=== PATIENT | male | born 1995 | race Caucasian/White ===

== ENCOUNTER 2019-02-05 10:45 | Emergency (ER) | payer MEDICAID, SELFPAY ==
[2019-02-05 10:48] VITALS: BP 134/81; PULSE 100; RESP 16; TEMP 36.1; O2SAT 99; BMI 27.1
--- NOTE | 2019-02-05 11:09 | ED.RN ---
WOUND HEALING WELL. NO SEPSIS WORKUP
--- NOTE | 2019-02-05 11:11 | ED.VIS.GEN ---
History of Present Illness Chief Complaint: Cellulitis Detail of Chief Complaint: Left leg wound Informant: Patient Onset: Weeks - 3 Current Severity: Mild Maximum Severity: Moderate Narrative: Patient presents with wound to the left lateral calf. He was just released from the [facility] yesterday. He states he had a wound there for 3 or 4 weeks. They were packing the wound daily for the past 2 weeks. Patient was discharged with supplies to change the dressing daily. He states a culture came back positive for MRSA that was sensitive to Cipro. He is currently on Cipro for another 5 days. He does not have a primary care physician to follow-up with and wanted to have the wound checked. - Past Medical History (1) MRSA (methicillin resistant Staphylococcus aureus) Status: Acute Past Medical History - Allergies and Home Meds Allergies/Adverse Reactions: Allergies sulfamethoxazole [From Bactrim] Allergy (Verified 02/05/19 10:47) Other FLUSHED, COLD CHILLS, DIZZY trimethoprim [From Bactrim] Allergy (Verified 02/05/19 10:47) Other FLUSHED, COLD CHILLS, DIZZY Primary Care Physician: Care Physician,No Primary [Primary Care Provider] - Prior records reviewed: Yes Past Medical History: - - Reviewed Lives: With Family Smoking Status: Former smoker Review of Systems General: Denies: Chills, Fever Eyes: Denies: Visual changes - left, Visual changes - right ENT: Denies: Bilateral ear pain Cardiovascular: Denies: Chest pain Respiratory: Denies: Dyspnea Gastrointestinal: Denies: Abdominal pain, Nausea, Vomiting Musculoskeletal: Denies: Myalgias, Arthralgias Skin: Reports: Wounds Neurological: Denies: Headache Hematologic: Denies: Easy bruising, Easy bleeding Allergy: Denies: Uticaria Physical Exam Vital Signs/Narrative: Vital Signs Temp Pulse Resp BP Pulse Ox 02/05/19 10:48 97 F L 100 16 134/81 H 99 Inital Vital Signs reviewed: Yes General: Well nourished, Well developed Head: Normocephalic, Atraumatic ENT: Moist mucous membranes Cardiovascular: Regular rate, Regular rhythm Respiratory: No distress, CTA bilaterally Abdomen: Soft, Nontender Extremities: - - There is a 1 cm diameter wound to the left lateral calf. Packing is removed. Wound is approximately 3 mm in depth. Wound edges and wound bed are clean with no drainage or sign of acute infection. Neurological: Alert, Oriented x3 Psychological: Normal affect Diagnostic/Tx/Re-eval - Medical Decision Making Dressing was replaced. Patient has 5 additional days of antibiotics. He will be referred to the wound center for follow-up. ED Disposition - Plan for ED Patient: Disposition: Home or Assisted Living Diagnosis: Visit for wound check Instructions: MRSA SKIN INFECTION, Suspected or Confirmed Additional Instructions: Call the Wound Center for follow-up: [phone]
== END 2019-02-05 11:27 | disposition home or self-care (01) ==
LOC: ED 11:23
PROVIDERS: Emergency Provider Emergency Medicine
DX: Z48.00 Encounter for change or removal of nonsurgical wound dressing (principal); B95.62 Methicillin resistant Staphylococcus aureus infection as the cause of diseases classified elsewhere; Z87.891 Personal history of nicotine dependence; Z79.2 Long term (current) use of antibiotics
CPT/HCPCS: 99282

== ENCOUNTER 2019-09-08 02:56 | Emergency (ER) | payer MEDICAID, SELFPAY ==
[2019-09-08 02:56] VITALS: BP 173/100; PULSE 100; RESP 18; TEMP 35.8; O2SAT 100; BMI 31.3
--- NOTE | 2019-09-08 03:05 | ED.VIS.GEN ---
History of Present Illness Chief Complaint: Eye Problem Informant: Patient Onset: Yesterday Context: Gradual Onset Current Severity: Mild Maximum Severity: Moderate Narrative: Patient presents with right eye irritation. He states that he was grinding sheet-metal with a wheel yesterday afternoon. He felt something in his eye and thought he got everything washed out, but the irritation seems to be slightly worsening. He does not wear glasses or contacts. He denies any vision change. Past Medical History - Allergies and Home Meds Allergies/Adverse Reactions: Allergies sulfamethoxazole [From Bactrim] Allergy (Verified 02/05/19 10:47) Other FLUSHED, COLD CHILLS, DIZZY trimethoprim [From Bactrim] Allergy (Verified 02/05/19 10:47) Other FLUSHED, COLD CHILLS, DIZZY Primary Care Physician: Care Physician,No Primary [Primary Care Provider] - Prior records reviewed: Yes Smoking Status: Current every day smoker Review of Systems General: Denies: Chills, Fever Eyes: Denies: Visual changes - bilaterally ENT: Denies: Bilateral ear pain Cardiovascular: Denies: Chest pain Respiratory: Denies: Dyspnea Gastrointestinal: Denies: Abdominal pain Skin: Denies: Rash Neurological: Denies: Headache Physical Exam Vital Signs/Narrative: Vital Signs Temp Pulse Resp BP Pulse Ox 09/08/19 02:56 96.4 F L 100 18 173/100 H 100 Inital Vital Signs reviewed: Yes General: Well nourished, Well developed Head: Normocephalic Eyes: Perrl, EOMI, - - Right eye injected. Mild eyelid erythema and edema. No sign of cellulitis. ENT: Moist mucous membranes Cardiovascular: Regular rate, Regular rhythm Respiratory: No distress, CTA bilaterally Abdomen: Soft, Nontender Neurological: Alert, Oriented x3 Psychological: Normal affect Diagnostic/Tx/Re-eval - Medical Decision Making Tetracaine was applied to the right eye. Patient did have some improvement in his pain. On slit-lamp examination he does have a metallic foreign body just inferior to the pupil. I attempted to remove this with a cotton-tipped swab but it is well embedded. Patient tells me it is been there at least 36 hours. In light of the fact that is been present so long I recommended follow-up with ophthalmology for removal. Patient be covered with gentamicin ophthalmic drops. I will call the office in the morning to notify them patient will be calling. Patient is to call tomorrow morning at 8 AM. ED Disposition - Plan for ED Patient: Disposition: Home or Assisted Living Diagnosis: Foreign body of right eye Referrals: Henri Tvaeras MD [STAFF PHYSICIAN] - 1 Day Additional Instructions: Gentamicin eye drops - 1 drop to right eye every [address] Taveras' office in the morning to be seen.
[2019-09-08] MEDS: Fluorescein 1 MG STRIP 1 STRIP RIGHT EYE (03:33)
[2019-09-08] MEDS: Tetracaine 0.5% Ophthalmic Bottle 1 DRP RIGHT EYE (03:33)
[2019-09-08] MEDS: Gentamicin Sulfate 1 OPTH.BTL 2 DRP RIGHT EYE (03:33)
== END 2019-09-08 03:36 | disposition home or self-care (01) ==
PROVIDERS: Emergency Provider Emergency Medicine
DX: T15.91XA Foreign body on external eye, part unspecified, right eye, initial encounter (principal); W45.8XXA Other foreign body or object entering through skin, initial encounter; Z72.0 Tobacco use
CPT/HCPCS: 99282

== ENCOUNTER 2021-01-23 04:20 | Emergency (ER) | payer MEDICAID, SELFPAY ==
[2021-01-23 04:21] VITALS: BP 165/117; PULSE 129; RESP 18; TEMP 35.9; O2SAT 97; BMI 36.3
[2021-01-23 04:23] VITALS: BP 165/117; PULSE 129; RESP 18; TEMP 35.9; O2SAT 97
[2021-01-23] MEDS: Bupivacaine 0.5% PF 10 ML VIAL 5 ML INFILT (04:51)
--- NOTE | 2021-01-23 04:54 | EDS_ITS ---
HPI History of Present Illness Chief Complaint: Dental Narrative Narrative: Patient presenting for evaluation secondary to dental pain. Patient states that he has had issues with his left mandibular wisdom tooth over the course of multiple months, but has been getting worse over the course the last couple of days. He reports that he has been self treating with a large amount of Naprosyn every day, as well as with alcohol. He states that he has been drinking more heavily and more heavily but it has not been alleviating his pain. He denies any fevers. Denies any difficulty swallowing. No difficulty with tolerating his secretions or opening closing his mouth. States that he has had dental extractions in the past but they were prohibitively expensive. Patient denies any history of immunosuppression. He is not allergic to anything other than Bactrim. Review of systems otherwise negative. PFSH PFSH Home Medications hydrocodone-acetaminophen 1 tab PO Q8H PRN 3 Days #9 tab 01/23/21 [Rx Last Taken Unknown] penicillin V potassium 500 mg PO 4X/DAY #40 tab 01/23/21 [Rx Last Taken Unknown] Allergy/AdvReac Type Severity Reaction Status Date / Time sulfamethoxazole Allergy Other Verified 02/05/19 10:47 [From Bactrim] trimethoprim [From Bactrim] Allergy Other Verified 02/05/19 10:47 Social History Smoking Status: Current every day smoker tobacco type: cigarettes ROS ROS ED Constitutional Constitutional ED: Denies fever(s) ENT ENT ED: Reports other Details: Dental pain Cardiovascular Cardiovascular: Denies chest pain Respiratory/Chest Respiratory/Chest: Denies dyspnea Gastrointestinal Gastrointestinal: Denies nausea or vomiting Musculoskeletal Musculoskeletal: Denies myalgias Integumentary Denies abscess or rash Neurologic Neurologic: Denies weakness Psychiatric Psychiatric: Denies anxiety or depression Endocrine Endocrinology: Denies polydipsia or polyuria Hematologic/Lymphatic Hematologic/Lymphatic: Denies easy bruising EXAM Physical Exam Const Vital Signs: 01/23/21 04:21 01/23/21 04:23 Temperature 96.6 F L 96.6 F L Temperature Source Temporal Temporal Pulse Rate 129 H 129 H Respiratory Rate 18 18 Blood Pressure 165/117 H 165/117 H Blood Pressure Mean 133 133 Pulse Ox 97 97 Oxygen Delivery Method Room Air Room Air Positive well nourished and well developed Constitutional Narrative: Patient is tearful and obviously in significant pain General Appearance ED: well developed HEENT HEENT Narrative: Oral exam shows actually reasonably good dentition. There is a very bad dental caries noted of the patient's third left mandibular molar without any evidence of associated abscess. No trismus. Soft sublingual space. Normal Stensen's duct. Eyes Eyes Narrative: Sclera are injected bilaterally Neck supple Resp normal respiratory effort and clear to auscultation bilaterally Cardio regular rhythm and no murmurs Cardio Narrative: 2+ radial pulses bilaterally symmetric Rate: tachycardic Extremity normal to inspection Neuro oriented x3 Sensorium / Orientation: alert Psych Psych Narrative: Patient is tearful, but otherwise not in psychiatric distress Skin no rashes or lesions noted MDM MDM MDM Narrative Medical decision making narrative: Patient presented with severe dental pain. He was noted to be tachycardic upon arrival, likely secondary to both his alcohol intoxication as well as his significant pain. He has an obvious source of his pain, I performed a inferior alveolar block as noted in the procedure note. Patient had significant improvement of his pain. Reviewed the patient's prescription reporting record, he does not seem to have a current record of prescription abuse at this time. He will be given #9 [place] as well as penicillin. He would be given the follow-up list for dentists. Patient was discharged in significantly improved condition. Procedures Other Procedures Procedure(s): Patient was verbally consented for an inferior alveolar block. He was placed in a semiupright position. Direct lighting was utilized. A 25-gauge needle and a 5 cc syringe were utilized, landmarks were identified. 0.5% bupivacaine was injected at the inferior alveolar nerve. Patient tolerated this well and had significant improvement of his pain. Discharge Plan Triage Chief Complaint: Dental ED Provider: Reggie Brandon Dx/Rx/DC Orders Clinical Impression: Dental caries Instructions: ED Dental Cavity Prescriptions: New penicillin V potassium 500 mg tablet 500 mg PO 4X/DAY Qty: 40 RF: 0 hydrocodone-acetaminophen 5-325 mg tablet 1 tab PO Q8H PRN (Reason: pain) 3 Days Qty: 9 RF: 0 Primary Care Provider: Care Physician,No Primary Referrals: Care Physician,No Primary [Primary Care Provider] - Activity Restrictions/Additional Instructions: Follow-up with a dentist as soon as possible Disposition Disposition: Home, Self Care
== END 2021-01-23 05:04 | disposition home or self-care (01) ==
PROVIDERS: Emergency Provider Emergency Medicine
DX: K02.9 Dental caries, unspecified (principal); F17.210 Nicotine dependence, cigarettes, uncomplicated
CPT/HCPCS: 41800; 64999; 99282

== ENCOUNTER 2021-01-24 13:49 | Emergency (ER) | payer MEDICAID, SELFPAY ==
[2021-01-23 04:21] VITALS: BMI 36.3
[2021-01-24 13:50] VITALS: BP 166/89; PULSE 103; RESP 16; TEMP 36.3; O2SAT 99; BMI 35.3
--- NOTE | 2021-01-24 14:18 | ED.VIS.DENTA ---
HPI History of Present Illness Chief Complaint: Dental Detail of Chief Complaint: Dental pain for 3 days Informant: patient Onset/Context/Timing Current Severity: Severe Narrative Narrative: Patient presents with severe dental pain that started 3 days ago. Patient states that he was seen in the emergency department 2 days ago and prescribed penicillin and Vicodin for pain. Patient states he was also given a dental block which gave him a lot of relief initially but that the Vicodin is not helping very much. Patient actually has an appointment to see a dentist tomorrow morning but was hoping to get another dental block because of the amount of pain that he is having. Patient denies any fevers or chills or sweats. Prior similar symptoms: No PFSH PFSH Home Medications hydrocodone-acetaminophen 1 tab PO Q8H PRN 3 Days #9 tab 01/23/21 [Rx Last Taken Unknown] penicillin V potassium 500 mg PO 4X/DAY #40 tab 01/23/21 [Rx Last Taken Unknown] Allergy/AdvReac Type Severity Reaction Status Date / Time sulfamethoxazole Allergy Other Verified 01/24/21 13:51 [From Bactrim] trimethoprim [From Bactrim] Allergy Other Verified 01/24/21 13:51 Social History Smoking Status: Current every day smoker tobacco type: cigarettes ROS ROS ED Constitutional Constitutional ED: Reports systems reviewed and no addt'l complaints, except as documented; Denies body ache(s), change in weight or chills Eyes Eyes: Denies acute decrease in peripheral vision, change in vision, double vision or loss of vision ENT ENT ED: Reports none and other Details: Dental pain ; Denies ear pain, lip swelling, loss taste/smell, neck pain, otalgia or sore throat Cardiovascular Cardiovascular: Reports none; Denies abdominal pain, chest pain with activity, leg edema, lightheadedness, palpitations, rapid heart rate or syncope Respiratory/Chest Respiratory/Chest: Reports none; Denies change in mental status, dry cough, dyspnea, hemoptysis, shortness of breath at rest or shortness of breath with exertion Gastrointestinal Gastrointestinal: Reports none; Denies abdominal pain, change in stool character, diarrhea, hematemesis, hematochezia, melena, rectal bleeding or vomiting Genitourinary Genitourinary ED: Reports none; Denies abdominal discomfort, anuria, dysuria, genital pain or polyuria Musculoskeletal Musculoskeletal: Reports none; Denies arthralgias, back pain, difficulty walking, extremity pain, muscle weakness or myalgias Integumentary Reports none; Denies abscess or rash Neurologic Neurologic: Reports none; Denies abnormal gait, confusion, focal weakness, frequent falls, headache(s), loss of vision, numbness, paresthesias, radicular pain, vertigo or weakness Psychiatric Psychiatric: Reports systems reviewed and no addt'l complaints, except as documented and none; Denies behavioral changes, confusion, difficulty concentrating, hallucinations, suicidal ideation, tactile hallucinations or visual hallucinations Endocrine Endocrinology: Denies none, cold intolerance, excessive sweating, fatigue or heat intolerance Hematologic/Lymphatic Hematologic/Lymphatic: Reports none; Denies anemia, easy bleeding or easy bruising Allergic/Immunologic Allergic/Immunologic ED: Denies as per HPI, none, lip swelling, mouth swelling, throat swelling, tongue swelling or hives EXAM Physical Exam Const Vital Signs: 01/24/21 13:50 Temperature 97.3 F L Temperature Source Temporal Pulse Rate 103 H Respiratory Rate 16 Blood Pressure 166/89 H Blood Pressure Mean 114 Pulse Ox 99 Oxygen Delivery Method Room Air Positive well nourished and well developed General Appearance ED: well developed and NAD HEENT Reports TM's clear and moist mucous membranes HEENT Narrative: Dentition-patient has a broken and carried left lower molar #17 is tender to palpation. No significant gingival erythema noted. There is no abscess. There is no facial cellulitis. No trismus on exam. No adenopathy noted. Floor the mouth is soft and patient is able to touch his tongue to the roof of his mouth without difficulty. normocephalic and atraumatic; Negative for trauma or tenderness Tympanic Membrane ED: Yes TM's clear Eyes PERRL and EOMs intact bilaterally General Eye ED: Negative for pale conjunctiva or scleral icterus Neck no lymphadenopathy, supple and no JVD General: Negative for tenderness Chest Wall inspection of chest normal and palpation of chest normal Chest: Negative for tenderness Resp normal respiratory effort and clear to auscultation bilaterally Effort and Inspection: Negative for respiratory distress or pain with movement Auscultation: Negative for rhonchi, wheezes or diminished lung sounds Cardio regular rate, regular rhythm, S1 normal heart sound, S2 normal heart sound and no murmurs Peripheral Pulses: pulses 2+ throughout GI normal to inspection, nondistended, normoactive bowel sounds, soft to palpation, non-tender, non-distended and no masses Back/Spine no CVA tenderness and no thoracic nor lumbar tenderness Extremity normal to inspection General Extremety ED: Negative for edema General Extremity: Negative for edema Neuro oriented x3, CN's II-XII intact bilaterally, no sensory deficits noted and gait normal Sensorium / Orientation: awake, alert, oriented to person, oriented to place and oriented to time Motor Exam: strength 5/5 throughout and strength abnormal Psych mental status grossly normal Skin no rashes or lesions noted and no wounds MDM MDM MDM Narrative Medical decision making narrative: Patient had a dental block performed with 1.5 cc of bupivacaine. Patient advised to follow-up with his dentist tomorrow. He has 3 Vicodin left to get him through until tomorrow. Discharge Plan Triage Chief Complaint: Dental ED Provider: Yanna Galaviz Dx/Rx/DC Orders Clinical Impression: Pain, dental Instructions: ED Dental Pain Prescriptions: No Action penicillin V potassium 500 mg tablet 500 mg PO 4X/DAY Qty: 40 RF: 0 hydrocodone-acetaminophen 5-325 mg tablet 1 tab PO Q8H PRN (Reason: pain) 3 Days Qty: 9 RF: 0 Primary Care Provider: Care Physician,No Primary Referrals: Care Physician,No Primary [Primary Care Provider] - Activity Restrictions/Additional Instructions: See your dentist tomorrow. Disposition Disposition: Home, Self Care
== END 2021-01-24 14:30 | disposition home or self-care (01) ==
PROVIDERS: Emergency Provider Emergency Medicine
DX: K08.89 Other specified disorders of teeth and supporting structures (principal); F17.210 Nicotine dependence, cigarettes, uncomplicated
CPT/HCPCS: 64999; 99282

== ENCOUNTER 2021-04-05 14:25 | Observation (INO) | payer MEDICAID, SELFPAY ==
[2021-04-05] VITALS (9 sets, daily range): BP systolic 129–174; BP diastolic 77–103; PULSE 81–105; RESP 17–18; TEMP 36.2–37; O2SAT 96–99; BMI 37.5; BMI 38.7
--- NOTE | 2021-04-05 14:45 | CT_ITS ---
STUDY: CT ABDOMEN AND PELVIS WITHOUT CONTRAST REASON FOR EXAM: Male, 25 years old. Right lower quadrant pain. RADIATION DOSAGE (If Supplied By Facility): CTDIvol = ( 18.77 ) mGy, DLP = ( 1022.12 ) mGycm TECHNIQUE: Transaxial images were obtained from the dome of the diaphragm to the symphysis pubis without oral contrast, and without intravenous contrast. Sagittal and coronal images were reconstructed. Individualized dose optimization techniques were used for this CT. COMPARISON: None. FINDINGS: The visualized lung bases are unremarkable. The visualized portions of the heart are within normal limits. There is decreased attenuation of the liver consistent with steatosis. Normal gallbladder and extrahepatic biliary system. Normal spleen. Normal pancreas. Normal bilateral adrenal glands. Normal right kidney. Normal left kidney. Normal visualized stomach. Normal small intestine. Normal colon. There is a tiny calcified appendicolith at the tip of the appendix. No inflammatory changes seen. Normal abdominal aorta. Normal inferior vena cava. There is borderline retroperitoneal lymphadenopathy with enlarged nodes no greater than 10mm in the short axis diameter. Normal urinary bladder. Normal abdominal wall. Straightening of the normal lumbar lordosis. CT/Abdomen/Pelvis without Cont IMPRESSION: Fatty infiltration of the liver. Tiny calcified appendicolith at the tip of the appendix. No periappendiceal inflammatory changes seen. Electronically Signed: Rafa Valenzuela MD at 15:26 EDT , Service support ,
[2021-04-05] MEDS: 0.9% Normal Saline 1,000 ML 1000 ML IV (15:04)
--- NOTE | 2021-04-05 15:08 | EX.ED.DYSGE1 ---
HPI History of Present Illness Chief Complaint: Abd Pain Narrative Narrative: Patient presents with right lower quadrant abdominal pain for the past 6 days or so. No fever or chills but pain is especially worse when he moves or hits a bump. He has no diarrhea or constipation, he has no nausea although his pain is somewhat worse with eating and he has had some anorexia. No urinary symptoms. No flank pain. PFSH PFSH Home Medications NK 04/05/21 [History Last Taken Unknown] Allergy/AdvReac Type Severity Reaction Status Date / Time sulfamethoxazole Allergy Other Verified 04/05/21 14:25 [From Bactrim] trimethoprim [From Bactrim] Allergy Other Verified 04/05/21 14:25 Social History Smoking Status: Current every day smoker tobacco type: cigarettes ROS ROS ED ROS Narrative Past medical history: Reviewed, unremarkable Medications: Reviewed Social history: Noncontributory Review of systems: All systems negative except as indicated General: No fever Eyes: No visual changes ENT: No upper airway congestion, normal voice Neck: No neck pain Cardiovascular: No chest pain Respiratory: No shortness of breath or cough Gastrointestinal: Abdominal pain as in HPI, no nausea vomiting. No diarrhea. No flank pain Genitourinary: No dysuria Musculoskeletal: Denies myalgias no difficulty with ambulation Skin: No rash Neurological: No memory loss, confusion or any focal weakness Psych: No recent behavioral changes Hematologic: No easy bleeding or easy bruising EXAM Physical Exam Narrative Exam Narrative: Physical exam General: Patient appears slightly uncomfortable. Head: Normocephalic, Atraumatic Eyes: Conjunctiva not pale ENT: Moist mucous membranes Neck: Supple, Nontender, No lymphadenopathy Cardiovascular: Regular rate, Regular rhythm Respiratory: No distress, CTA bilaterally Abdomen: Soft, there is right lower quadrant abdominal tenderness. There is some guarding in that region the tenderness is around McBurney's. There is rebound tenderness. No testicular pain. No CVA tenderness. Back: Nontender, Normal Inspection. Negative for: CVA tenderness Extremities: Nontender, No edema Skin: Normal color, No rash Neurological: Alert, Normal Strength, Normal Sensation Psychological: Normal affect Const Vital Signs: 04/05/21 14:26 Temperature 97.4 F L Temperature Source Temporal Pulse Rate 105 H Respiratory Rate 17 Blood Pressure 174/103 H Blood Pressure Mean 126 Pulse Ox 96 Oxygen Delivery Method Room Air MDM MDM MDM Narrative Medical decision making narrative: Patient has an appendicolith on CT however his exam is quite significant for appendicitis I called surgery who agrees and patient will be taken to the operating room. Zosyn was started in the ED. Lab Data Labs: Laboratory Results - last 24 hr 04/05/21 04/05/21 04/05/21 14:55 15:04 15:04 WBC 10.3 RBC 5.20 Hgb 16.3 Hct 48.0 MCV 92.3 MCH 31.3 MCHC 34.0 RDW Std Deviation 42.6 RDW Coeff of Mega 12.4 Plt Count 300 MPV 9.5 Immature Gran % (Auto) 0.900 Neut % (Auto) 65.0 Lymph % (Auto) 21.4 Posey % (Auto) 8.7 Eos % (Auto) 3.2 Baso % (Auto) 0.8 Absolute Neuts (auto) 6.7 Absolute Lymphs (auto) 2.20 Nucleated RBC % 0 Sodium 139 Potassium 4.1 Chloride 106 Carbon Dioxide 26.0 Anion Gap 7 BUN 14 Creatinine 1.00 Estim Creat Clear Calc 110.96 Est GFR (MDRD) Af Amer 115 Est GFR (MDRD) Non-Af 95 BUN/Creatinine Ratio 14.0 Glucose 107 H Calcium 9.2 Total Bilirubin 0.30 AST 63 H ALT 107 H Alkaline Phosphatase 124 H Total Protein 7.2 Albumin 3.5 Globulin 3.7 Albumin/Globulin Ratio 0.9 Urine Color Yellow Urine Clarity Clear Urine pH 8.0 Ur Specific [place] 1.010 Urine Protein Negative Urine Glucose (UA) Normal Urine Ketones Negative Urine Occult Blood Negative Urine Nitrite Negative Urine Bilirubin Negative Urine Urobilinogen Normal Ur Leukocyte Esterase Negative Urine RBC 0 SEEN Urine WBC 0 SEEN Ur Squamous Epith Cells 0 SEEN Urine Bacteria 0 SEEN Urine Mucus 0 SEEN Radiography Diagnostic Testing: Radiology Impression Abdomen/Pelvis CT 04/05/21 14:45 IMPRESSION: Fatty infiltration of the liver. Tiny calcified appendicolith at the tip of the appendix. No periappendiceal inflammatory changes seen. Electronically Signed: Rafa Valenzuela MD at 15:26 EDT , Service support , Discharge Plan Triage Chief Complaint: Abd Pain ED Provider: Nick Devlin Dx/Rx/DC Orders Clinical Impression: Acute appendicitis Prescriptions: No Action NK RF: 0 Primary Care Provider: Care Physician,No Primary Referrals: Care Physician,No Primary [Primary Care Provider] - Disposition Disposition: Acute Care Hospital [facility]
[2021-04-05 15:12] LABS: Bacteria 0 SEEN /hpf (None Seen); Mucous, Urine 0 SEEN /hpf (<or=2+); Red Blood Cells-Urine 0 SEEN /hpf (0-5); Squamous Epithelial Cells - UA 0 SEEN /hpf (0-5); White Blood Cells 0 SEEN /hpf (0-5)
[2021-04-05 15:13] LABS: Color, Urine Yellow (Yellow); Glucose, Dipstick Normal (Normal); Ketone-Dipstick Negative (Negative); Leukocyte Esterase-Dipstick Negative /ul (Negative); Nitrite-Dipstick Negative (Negative); Occult Blood-Urine Negative /ul (Negative); Protein-Dipstick Negative (Negative); Urine Bilirubin Dipstick Negative (Negative); Urine Clarity Clear (Clear); Urine Urobilinogen Normal (Normal)
[2021-04-05 15:14] LABS: Absolute Neutrophil Count 6.7 X10^3/uL (2.0-7.7); Basophil# 0.08 X10^3/uL; Basophil% 0.8 % (0-1); Eosinophil# 0.33 X10^3/uL; Eosinophils% 3.2 % (0-5); Hemoglobin 16.3 g/dL (13.0-16.5); Lymphocyte % 21.4 % (19-41); Mean Corpuscular Hgb 31.3 pg (27.0-32.0); Mean Corpuscular Volume 92.3 fL (80-94); Mean Platelet Vol. 9.5 fl (6.2-12.0); Monocyte% 8.7 % (0-10); NRBC Flagged by Analyzer 0 % (0-5); Neutrophil # 6.69 X10^3/uL (2.7-7.7); Platelet Count 300 K/mm3 (150-450); RBC Distribution Width CV 12.4 % (11.6-14.6); RBC Distribution Width SD 42.6 fl (35.1-43.9); White Blood Count 10.3 K/mm3 (4.4-11.0)
[2021-04-05 15:31] LABS: ALB/GLOB Ratio 0.9 RATIO (0.9-2.4); AST(SGOT) 63 U/L (15-37); Alanine Aminotransfer ALT/SGPT 107 U/L (16-61); Albumin, Serum 3.5 g/dL (3.2-5.0); Alkaline Phosphatase 124 U/L (45-117); Anion Gap 7 (5-15); BUN 14 mg/dL (7-18); Calcium,Total 9.2 mg/dL (8.5-10.1); Chloride 106 mmol/L (98-107); EST Glomerular Filtration Rate 95 mL/min (>60); Est Glom Filt Rate - Afr Amer 115 mL/min (>60); Estimated Creatinine Clearance 110.96 ml/min; Globulin 3.7 g/dL (2.2-4.2); Glucose 107 mg/dL (74-106); Potassium 4.1 mmol/L (3.5-5.1); Protein, Total 7.2 g/dL (6.4-8.2); Sodium Level 139 mmol/L (136-145)
--- NOTE | 2021-04-05 16:12 | CON.PCM.SX_ITS ---
Assessment & Plan Assessment/Plan (1) Abdominal pain, RUQ: (2) Acute appendicitis: QUALIFIERS: Acute appendicitis type: with localized peritonitis Appendicitis gangrene presence: without gangrene Appendicitis perforation presence: without perforation Appendicitis abscess presence: without abscess Qualified Code(s): K35.30 - Acute appendicitis with localized peritonitis, without perforation or gangrene PLAN: Plan will be to perform a laparoscopic appendectomy on the patient. I have counseled the patient as to the risks of the procedure, including but not limited to: infection, bleeding, injury to any blood vessels/nerves, injury to any bowel/bladder, injury to any intraabdominal organs such as the liver/spleen, perforation of the GI tract, intraabdominal abscess/bleeding, incisional hernias, injury to the common bile duct/biliary ducts, injury to the spermatic cord/vessels/testicles, recurrence of hernia(s), complications of anesthesia, etc. The patient verbalizes understanding. I am hoping that I will be able to discharge him tonight. HPI Consult Data Date of Consult: 04/05/21 HPI Narrative HPI Narrative: INDIRA REYES, is a 25 M who presents with right lower quadrant abdominal pain for the past 6 days or so. No fever or chills but pain is especially worse when he moves or hits a bump. He has no diarrhea or constipation, he has had nausea although his pain is somewhat worse with eating and he has had some anorexia. No urinary symptoms. No flank pain. CT scan showed an appendicolith no periappendiceal inflammation was noted. And his white count was slightly over 10. [facility] Home Medications NK 04/05/21 [History Last Taken Unknown] Allergy/AdvReac Type Severity Reaction Status Date / Time sulfamethoxazole Allergy Other Verified 04/05/21 14:25 [From Bactrim] trimethoprim [From Bactrim] Allergy Other Verified 04/05/21 14:25 Social History Smoking Status: Current every day smoker tobacco type: cigarettes ROS Eyes Eyes: Reports systems reviewed and no addt'l complaints, except as documented ENT HEENT: Reports systems reviewed and no addt'l complaints, except as documented Cardiovascular Cardiovascular: Denies chest pain Respiratory/Chest Respiratory/Chest: Denies cough, dyspnea or productive cough Gastrointestinal Gastrointestinal: Reports abdominal pain and nausea; Denies rectal bleeding or vomiting Genitourinary Genitourinary: Denies change in urinary stream Musculoskeletal Musculoskeletal: Reports systems reviewed and no addt'l complaints, except as documented Integumentary Integumentary: Denies rash Physical Exam Const alert, oriented x3 and no apparent distress General Appearance: cooperative HEENT normocephalic, head/scalp atraumatic and TM's normal bilaterally Eyes PERRL and EOMs intact bilaterally Neck full ROM and supple Resp normal respiratory effort and clear to auscultation bilaterally Cardio Rate: regular rate Rhythm: regular rhythm GI soft to palpation Palpation: tender McBurney's point Bladder / Kidney Exam: no CVA tenderness Lab / Micro Data Result Diagrams: 04/05/21 15:04 04/05/21 15:04 Labs: Laboratory Results - last 24 hr 04/05/21 14:55: Urine Color Yellow, Urine Clarity Clear, Urine pH 8.0, Ur Specific [place] 1.010, Urine Protein Negative, Urine Glucose (UA) Normal, Urine Ketones Negative, Urine Occult Blood Negative, Urine Nitrite Negative, Urine Bilirubin Negative, Urine Urobilinogen Normal, Ur Leukocyte Esterase Negative, Urine RBC 0 SEEN, Urine WBC 0 SEEN, Ur Squamous Epith Cells 0 SEEN, Urine Bacteria 0 SEEN, Urine Mucus 0 SEEN 04/05/21 15:04: WBC 10.3, RBC 5.20, Hgb 16.3, Hct 48.0, MCV 92.3, MCH 31.3, MCHC 34.0, RDW Std Deviation 42.6, RDW Coeff of Mega 12.4, Plt Count 300, MPV 9.5, Immature Gran % (Auto) 0.900, Neut % (Auto) 65.0, Lymph % (Auto) 21.4, Meade % (Auto) 8.7, Eos % (Auto) 3.2, Baso % (Auto) 0.8, Absolute Neuts (auto) 6.7, Absolute Lymphs (auto) 2.20, Nucleated RBC % 0 04/05/21 15:04: Sodium 139, Potassium 4.1, Chloride 106, Carbon Dioxide 26.0, Anion Gap 7, BUN 14, Creatinine 1.00, Estim Creat Clear Calc 110.96, Est GFR (MDRD) Af Amer 115, Est GFR (MDRD) Non-Af 95, BUN/Creatinine Ratio 14.0, Glucose 107 H, Calcium 9.2, Total Bilirubin 0.30, AST 63 H, ALT 107 H, Alkaline Phosphatase 124 H, Total Protein 7.2, Albumin 3.5, Globulin 3.7, A lbumin/Globulin Ratio 0.9 Radiology Impression Abdomen/Pelvis CT 04/05/21 14:45 IMPRESSION: Fatty infiltration of the liver. Tiny calcified appendicolith at the tip of the appendix. No periappendiceal inflammatory changes seen. Electronically Signed: Rafa Valenzuela MD at 15:26 EDT , Service support ,
[2021-04-05] MEDS: 0.9% Normal Saline 1,000 ML 100 ML IV (16:30)
--- NOTE | 2021-04-05 16:30 | APP_PTH ---
PATIENT: INDIRA REYES LOC: MS3 U#:[id number] AGE/SX: 25/M ROOM: NE312 RE04/05/[address]: Dr. Carlton Escobar MD : 1995 BED: 1 DIS: 04/06/2021 SPEC #: [id number] RECD: 04/08/21 08:35 STATUS: ZAIDA REQ #: [id number] YOANNA: 04/05/21 16:[address]: Carlton Escobar DEPT: SURGICAL PATHOLOGY RECD BY: Brittanie Garcia ENTERED: 04/08/21 15:22 SP TYPE: APPENDIX OTHR DR: No Primary Care Phys Tissues: Appendix, NOS Procedures: Surgery Specimen Level III HEADER OPERATION: Laparoscopic appendectomy PRE-OP DIAGNOSIS: Acute appendicitis TISSUE SUBMITTED: Appendix MICROSCOPIC DIAGNOSIS Appendix, appendectomy: Focal early acute appendicitis. AM:ruma 04/11/2021 MICROSCOPIC DESCRIPTION Slides are reviewed. GROSS DESCRIPTION Received in fixative is one container labeled with the patient's name and designated appendix. The specimen consists of a vermiform appendix measuring 10.5 cm in length and 1 cm in greatest diameter. No gross perforations are evident. Serial sections reveal a patent lumen. No mass lesion is identified. The appendix is sectioned and totally submitted in five cassettes. / AM:ruma 04/08/21 CPT: 20444
--- NOTE | 2021-04-05 16:57 | ED.RN ---
REPORT CALLED TO DIOR IN AC
--- NOTE | 2021-04-05 18:48 | OP.PCM_ITS ---
Problems Associated Problem List Diagnoses (1) Acute appendicitis: Report of Operation Date of Procedure: 04/05/21 Pre-Operative Diagnosis: Acute appendicitis Post-Operative Diagnosis: Same Surgery/Procedure Performed:: Laparoscopic appendectomy Surgeon: Carlton Escobar school psychometrist: Ace Vasquez Type of Anesthesia: General Anesthesiologist: Edwardo Wang Specimen's removed: Appendix Estimated Blood Loss (mL): approx 200 Description of Procedure: Patient was brought into the operating room. Placed in the supine position. Under excellent general anesthetic the abdomen was sterilely prepped and draped in usual fashion. Local was injected infraumbilically dissection was carried down to the fascia the fascia grasped with a Emelia varies needle was placed inside the abdomen the abdomen was insufflated to 15 torr. A 10/12 trocar was placed without difficulty. Patient was placed in the headdown and rotated to the left position. Suprapubic #5 trochars placed left lower quadrant #5 trochars placed over these under direct visualization without injury to underlying structures. Patient was noted to have acute appendicitis at the tip of the appendix which was resting right on the peritoneum which was clearly the source of his discomfort is easily came down. Came down on the mesoappendix with the Enseal. In the process of this I ran into bleeding with one of the branches of the appendiceal artery. Due to his size it was difficult for me to see this well. I added a another #5 trocar in the right upper quadrant to help mobilize the terminal ileum once I did this I was able to identify the vessel and I got around it with the Enseal and I obtained good hemostasis. I did place one small hemolock clip in here in the process of trying to control this bleeding. I transected the appendix with 2 loads of a 45 linear stapler and placed it in a specimen bag and delivered through the umbilical port without difficulty. I then applied pressure near the areas of the mesoappendix the whole area was raw I decided that it was best that I placed some Surgicel and hold pressure and I did this for approximately 5 minutes and when I remove the Ray-Tuan Surgicel was dry I felt it was best to leave the Surgicel in for fear of causing more bleeding if I took it out. Irrigated and retrieved all the blood in the abdomen and lost approximately 200 cc of blood. I ran the small bowel no Meckel's diverticulum was identified. I removed the trochars under direct visualization good with stasis was noted. Close the fascia the umbilical port with a [id number] stitch of 0 Vicryl. Skin incisions were closed with subicular stitches of 4-0 Monocryl. Steri- Strips were applied sterile dressings were applied and the patient tolerated the procedure well. I was intending on sending him home but secondary to losing the amount of blood that I did I think it is best to keep him overnight and discharge him in the morning. Admit VTE Documentation VTE Present on Admission: No VTE Mechan Device Prophylaxis: SCD's VTE Pharm Prophylaxis ordered?: No Reason prophylaxis not ordered:: Procedure Not Indicated
[2021-04-05] MEDS: Lactated Ringers 1,000 ML 100 ML IV (19:00)
[2021-04-05] MEDS: 0.9% Normal Saline 1,000 ML 70 ML IV (22:26)
[2021-04-06 01:05] VITALS: BP 143/80; PULSE 73; RESP 18; TEMP 36.9; O2SAT 98
[2021-04-06] MEDS: oxyCODONE 5 MG Tablet PO ×2 (02:39→10:06)
[2021-04-06] MEDS: 0.9% Saline Lock 10 ML Syringe IV (02:39)
[2021-04-06 04:46] VITALS: BP 133/87; PULSE 87; RESP 18; TEMP 36.7; O2SAT 99
--- NOTE | 2021-04-06 04:58 | NURSING ---
Patient ambulated 1 lap in [facility]
[2021-04-06 07:11] LABS: Absolute Lymphocyte Count 1.95 X10^3/uL (0.83-4.51); Absolute Neutrophil Count 6.8 X10^3/uL (2.0-7.7); Basophil# 0.04 X10^3/uL; Basophil% 0.4 % (0-1); Eosinophil# 0.14 X10^3/uL; Eosinophils% 1.4 % (0-5); Hematocrit 42.6 % (40-54); Hemoglobin 13.9 g/dL (13.0-16.5); Lymphocyte # 1.95 X10^3/ul (0.83-4.51); Lymphocyte % 19.9 % (19-41); Mean Corp Hgb Conc 32.6 g/dL (32-36); Mean Corpuscular Hgb 31.2 pg (27.0-32.0); Mean Corpuscular Volume 95.7 fL (80-94); Mean Platelet Vol. 9.6 fl (6.2-12.0); Monocyte# 0.86 X10^3/uL; Monocyte% 8.8 % (0-10); NRBC Flagged by Analyzer 0 % (0-5); Neutrophil # 6.76 X10^3/uL (2.7-7.7); Neutrophil % 68.9 % (47-70); Platelet Count 254 K/mm3 (150-450); RBC Distribution Width CV 12.7 % (11.6-14.6); RBC Distribution Width SD 44.4 fl (35.1-43.9); Red Blood Count 4.45 M/mm3 (4.6-6.2); White Blood Count 9.8 K/mm3 (4.4-11.0)
[2021-04-06 07:35] LABS: Anion Gap 5 (5-15); BUN 11 mg/dL (7-18); BUN/Creat Ratio 9.9 RATIO (10-20); Calcium,Total 8.1 mg/dL (8.5-10.1); Chloride 104 mmol/L (98-107); Creatinine, Serum 1.11 mg/dL (0.70-1.30); EST Glomerular Filtration Rate 84 mL/min (>60); Est Glom Filt Rate - Afr Amer 102 mL/min (>60); Estimated Creatinine Clearance 99.96 ml/min; Glucose 120 mg/dL (74-106); Sodium Level 137 mmol/L (136-145)
--- NOTE | 2021-04-06 09:33 | EX.PCM.DISCH ---
Discharge Instructions Procedure Appendectomy Diet Discharge Diet: Light diet - advance as tolerated (if you have questions about your diet instructions, please talk to you doctor.) Activity Discharge Activity: May Not Drive (for 3-5 days or while taking narcotic pain meds.) May shower in (days): 1 Dressing / Incision Call your doctor if your incision/area has: Continuous Slow Oozing, Sudden Increased Bleeding, Increased Pain/ Swelling, Increased Redness and Foul Smelling Discharge Call your doctor if you observe: Fever of 101 or Higher Suture Line Care: Avoid Pulling/Pushing and Avoid Pinching/Bending Additional Dressing/Incision Instructions:: Keep dressing clean and dry. Change or remove dressing in 2 days. Leave steri strips for 1 week. May protect with a gauze bandaid. Follow Up Care Please Follow Up With: Holley Napier PA-C When: Call office to schedule an appointment to be seen in 1 week. Test Results: Test results from this visit will be discussed in further detail at your follow-up appointment, if applicable. Discharge Plan Admission Admit Date/Time: 04/05/21 19:57 Attending Provider: Carlton Escobar Primary Care Provider: Care Physician,[place] Primary Discharge Orders/Prescriptions Prescriptions: New oxycodone-acetaminophen [Endocet] 5-325 mg tablet 1 tab PO Q6H PRN (Reason: pain) 5 Days Qty: 20 RF: 0 No Action NK RF: 0 Referrals / Follow Up: Care Physician,No Primary [Primary Care Provider] - Holley Napier PA-C [PHYSICIAN ACCOUNT [employer]EC[employer]IVE [employer]] -
[2021-04-06 09:53] VITALS: BP 138/97; PULSE 91; RESP 18; TEMP 36.7; O2SAT 98
== END 2021-04-06 10:13 | disposition home or self-care (01) ==
LOC: ED 16:07 → SDC 16:24 → ACINP 16:25 → SDC 21:30 → MS3 21:30
PROVIDERS: Admitting Provider Surgery; Emergency Provider Emergency Medicine; Visit Provider Surgery
PROC: 0DTJ4ZZ Resection of Appendix, Percutaneous Endoscopic Approach (ICD-10-PCS; CPT 44970; principal; 2021-04-05 16:10)
DX: K35.30 Acute appendicitis with localized peritonitis, without perforation or gangrene (principal); F17.210 Nicotine dependence, cigarettes, uncomplicated
CPT/HCPCS: 44970; 36415; 74176; 80048; 80053; 81001; 85025; 87426; 88304; 96365; 96366; 99218; 99251; 99283; J7030; A4216; C1760; G0378; G0463; J2405

== ENCOUNTER 2022-08-17 06:21 | Emergency (ER) | payer MEDICAID, SELFPAY ==
[2022-08-17 06:23] VITALS: BP 156/99; PULSE 132; RESP 20; TEMP 35.8; O2SAT 99; BMI 37.0
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
[2022-08-17] MEDS: Diphth,Pertuss(Acell),Tet Vac 0.5 ML Vial IM (06:47)
== END 2022-08-17 07:01 | disposition home or self-care (01) ==
LOC: ED 06:54
PROVIDERS: Emergency Provider Emergency Medicine; Visit Provider Emergency Medicine
DX: S51.812A Laceration without foreign body of left forearm, initial encounter (principal); F17.210 Nicotine dependence, cigarettes, uncomplicated; Z23 Encounter for immunization; W25.XXXA Contact with sharp glass, initial encounter
CPT/HCPCS: 12002; 90471; 90715; 99283

== ENCOUNTER 2023-09-03 15:40 | Emergency (ER) | payer MEDICAID, SELFPAY ==
[2023-09-03 15:41] VITALS: BP 154/100; PULSE 113; RESP 16; TEMP 36.6; O2SAT 100; BMI 31.9
--- NOTE | 2023-09-03 16:13 | EX.ED.SAOD ---
HPI History of Present Illness Chief Complaint: Substance Abuse Informant: patient Associated Symptoms Associated Symptoms: Negative for vomiting*, diarrhea*, fever* or change in mental status Narrative Narrative: 27-year-old male history of alcohol abuse for last 4 years drinks about a pint of either vodka or whiskey a day. Just went through detox a month ago near [facility]. He is currently staying in a male [facility] which is associated with [facility]. He was told to come to the ER today. He denies any complaints. He denies any nausea or vomiting. Patient is not looking for inpatient detox. Prior similar symptoms: Yes Recent Illness/Hospitalization: Yes PFSH PFSH Home Medications NK 04/05/21 [History Last Taken Unknown] Allergy/AdvReac Type Severity Reaction Status Date / Time sulfamethoxazole Allergy Other Verified 09/03/23 15:41 [From Bactrim] trimethoprim [From Bactrim] Allergy Other Verified 09/03/23 15:41 Surgical History History of appendectomy Social History Smoking Status: Current every day smoker tobacco type: cigarettes ROS ROS ED ROS Narrative Denies recent illness. Review of Systems ROS Unobtainable: Denies due to encephalopathy Constitutional Constitutional ED: Denies chills or fever(s) Eyes Eyes: Denies blurry vision ENT ENT ED: Denies ear pain Cardiovascular Cardiovascular: Denies chest pain Respiratory/Chest Respiratory/Chest: Denies cough Gastrointestinal Gastrointestinal: Denies abdominal pain, diarrhea, nausea or vomiting Genitourinary Genitourinary ED: Denies dysuria Musculoskeletal Musculoskeletal: Denies arthralgias Integumentary Denies abscess Neurologic Neurologic: Denies headache(s) Psychiatric Psychiatric: Denies anxiety Endocrine Endocrinology: Denies cold intolerance Hematologic/Lymphatic Hematologic/Lymphatic: Denies easy bleeding, easy bruising or lymphadenopathy Allergic/Immunologic Allergic/Immunologic ED: Denies mouth swelling, tongue swelling or urticaria EXAM Physical Exam Narrative Exam Narrative: Well-appearing 18-year-old male vital signs stable afebrile. He does not look septic guys he is in no distress. He was sitting in a chair when I walked in the room. H EENT exam unremarkable. Moist membranes. Neck nontender no lymphadenopathy. Lungs clear to auscultation bilaterally. Heart regular rhythm rate about 100 no murmur. Chest wall nontender. Abdomen soft nontender. Moving all 4 extremities. Nontender no edema. Back nontender. Neurologically is awake and alert with no focal motor deficits. Answering questions and following commands. Const Vital Signs: 09/03/23 15:41 Temperature 97.8 F Temperature Source Temporal Pulse Rate 113 H Respiratory Rate 16 Blood Pressure 154/100 H Blood Pressure Mean 118 Pulse Ox 100 Oxygen Delivery Method Room Air Positive well nourished and well developed; Negative for obese, cachectic, contractures or unkempt General Appearance ED: well developed and NAD; Negative for unkempt, cachectic, contractures or pallor Nutritional Appearance: Negative for cachectic or obese HEENT Reports moist mucous membranes; Denies dry mucous membranes atraumatic; Negative for trauma or tenderness Mouth ED: No dry mucous membranes Mouth: No dry mucous membranes Eyes PERRL and EOMs intact bilaterally General Eye ED: Negative for pale conjunctiva or scleral icterus Neck no lymphadenopathy, supple and no JVD Thyroid: Negative for tender Lymph Lymphatic: no lymphadenopathy noted; Negative for lymphadenopathy Chest Wall inspection of chest normal and palpation of chest normal Chest: Negative for other Resp normal respiratory effort and clear to auscultation bilaterally Effort and Inspection: Negative for retractions Auscultation: Negative for rales, rhonchi or wheezes Cardio regular rate, regular rhythm, S1 normal heart sound, S2 normal heart sound and no murmurs Rate: Negative for bradycardia or tachycardic Rhythm: Negative for abnormal rhythm Bruits: Negative for other GI soft to palpation, non-tender, non-distended and no masses Inspection: Negative for abdominal distention Palpation: Negative for tender or guarding Back/Spine no CVA tenderness General Back: Negative for CVA tenderness Cervical Spine: Negative for cervical spine tenderness Thoracic Spine / Upper Back: Negative for thoracic spinal tenderness Lumbar Spine / Lower Back: Negative for lumbar spinal tenderness Coccyx: Negative for swelling Extremity General Extremety ED: Negative for edema or tenderness General Extremity: Negative for edema Neuro oriented x3 and CN's II-XII intact bilaterally Sensorium / Orientation: alert, oriented to person, oriented to place and oriented to time; Negative for confused, lethargic or stuporous Speech: speech normal Motor Exam: strength 5/5 throughout Psych mental status grossly normal and thought process normal Appearance: Negative for unkempt Attitude: No belligerent, No agitated and No aggressive Mood & Affect: Negative for depressed, anxious or tearful Skin General Skin Exam: Negative for jaundice or pallor Lesions: no lesions Rashes: no rashes Trauma: Negative for abrasion or laceration MDM MDM MDM Narrative Medical decision making narrative: 27-year-old male history of alcohol abuse stated [facility]. I believe he is just getting medical clearance because he does not want inpatient admission for detox and just had that a month ago. Her nurse spoke to the patient's [facility]. They sent him in for detox. He does not want inpatient detox. He will do this at home. If he stays sober for 3 days able taking back at the [facility]. I again went and saw the patient he is stable. Offered him admission but he defers. Discharge Plan Triage Chief Complaint: Substance Abuse ED Provider: Dong Whitaker Dx/Rx/DC Orders Clinical Impression: Encounter for medical clearance for patient hold, History of alcohol abuse Instructions: ED Alcohol Abuse Prescriptions: No Action NK Primary Care Provider: Care Physician,No Primary Referrals: Care Physician,No Primary [Primary Care Provider] - Activity Restrictions/Additional Instructions: Follow-up with [facility] for outpatient alcohol abuse counseling. Return if you are feeling worse. Disposition Disposition: Home, Self Care
--- NOTE | 2023-09-03 16:31 | ED.RN ---
Patient states that he is not wanting to do the [facility] program. He states that he can isolate and withdrawal himself without being admitted. I spoke with Allyson from the [facility]. She states that this was explained to him. Patient was in inpatient rehab for 3 weeks. Per Allyson the patient has to be 72 hours clean. Patient voiced understanding of this. I advise the patient that if he should change his mind or if he starts to have withdrawal symptoms he could come back to the ER to check back in.
== END 2023-09-03 16:39 | disposition home or self-care (01) ==
LOC: ED 16:31
PROVIDERS: Emergency Provider Emergency Medicine; Visit Provider Emergency Medicine
DX: Z00.00 Encounter for general adult medical examination without abnormal findings (principal); F17.210 Nicotine dependence, cigarettes, uncomplicated
CPT/HCPCS: 99282

== ENCOUNTER 2025-07-17 08:02 | Emergency (ER) | payer MEDICAID, SELFPAY ==
[2025-07-17 08:02] VITALS: BP 152/95; PULSE 117; RESP 16; TEMP 36.2; O2SAT 98; BMI 32.8
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
[2025-07-17 08:44] LABS: Hematocrit 50.8 % (40-54); Hemoglobin 16.9 g/dL (13.0-16.5); Immature Granulocytes Count 0.060 X10^3/uL (0.0-0.0); Mean Corp Hgb Conc 33.3 g/dL (32-36); Mean Corpuscular Volume 92.4 fL (80-94); Mean Platelet Vol. 9.2 fl (6.2-12.0); NRBC Flagged by Analyzer 0 % (0-5); Platelet Count 333 K/mm3 (150-450); RBC Distribution Width CV 13.1 % (11.6-14.6); RBC Distribution Width SD 44.9 fl (35.1-43.9); Red Blood Count 5.50 M/mm3 (4.6-6.2); White Blood Count 10.2 K/mm3 (4.4-11.0)
[2025-07-17 08:55] LABS: Prothrombin Time (Protime)PT. 14.1 SECONDS (11.7-14.9)
[2025-07-17 09:02] VITALS: PULSE 112; RESP 18; O2SAT 99
[2025-07-17 09:04] LABS: Barbiturate Urine NEGATIVE (< 200 ng/mL); Benzodiazepine Urine NEGATIVE (< 200 ng/mL); PCP Urine NEGATIVE (< 25 ng/mL); THC Urine PRESUMPTIVE POSITIVE (< 50 ng/mL)
[2025-07-17 09:06] LABS: AST(SGOT) 25 U/L (<=37); Alanine Aminotransfer ALT/SGPT 26 U/L (<=46); Albumin, Serum 4.8 g/dL (3.5-5.0); Alkaline Phosphatase 109 U/L (40-129); Anion Gap 11 (7-18); BUN 19 mg/dL (4-19); BUN/Creat Ratio 21.6 RATIO (10-20); Calcium,Total 9.6 mg/dL (7.6-11.0); Carbon Dioxide 26.0 mmol/L (20.0-29.0); Chloride 103 mmol/L (96-106); Estimated Creatinine Clearance 141.11 ml/min (50-250); Globulin 3.0 g/dL (2.2-4.2); Glucose 101 mg/dL (70-99); Potassium 4.3 mmol/L (3.5-5.1)
[2025-07-17 09:10] LABS: Alcohol, Blood (Medical)-Serum 105.0 mg/dL (<=10.0)
--- OUTSIDE RECORDS SUMMARY | 2025-07-17 09:33 | XMS RPT_ITS | CCD ---
Author Organization [facility] Care Team Providers Care Byproduct Engineer Name Role Phone MEGANNOEMI CASTELAN Unavailable Unavailable No, Physician Primary Care Provider UnavailROBERT Triana Admitting Unava ilable NO, PHYSICIAN Primary Care Unavailable DEVIN CHEN Attending Unavailable [facility] GENER[facility] Consulting Marixa De Leon MD, Pamela Alegria Primary Care Provider Dong Whitaker Attending Unavailable Care Physician, No Primary Primary Care Unava ilable Unavailable Primary Care Provider UnavailPAMELA Morales Primary Care Unavailab yunier PODLOGARERNESTINA Referring Unavailable PODLOGARERNESTINA Referring Unavailable PAMELA DE LEON Primary Care Unavailab le Unavailable Primary Care Provider UnavailTHERESA Mcrae Referring Unavailable THERESA LANDRY Referring Unavailable Anat Khan Unavailable [phone] ANAT JACOME Attending Unavailable ANAT JACOME Attending Unavailable ANAT JACOME Attending Unavailable ANAT JACOME Referring Unavailable ANAT JACOME Attending Unavailable THERESA LANDRY Attending Unavailable Anat Khan Unavailable Unava ilable Anat Khan Unavailable Unava ilable Generic Provider , No Assigned Pcp Primary Car e Provider Unavailable GUY TOMLIN Attending Unavailable GENERIC PROVIDER, NO ASSIGNED PCP Primary Care Unavailable THERESA LANDRY Admitting Unavailable THERESA LANDRY Attending Unavailable Allergies Allergy Classification Reported Allergen(s) Allergy Type Date of Onset Reaction(s) Facility Sulfamethoxazole / Trimethoprim (2 sources) Sulfamethoxazole / Trimethoprim; Translations: [SULFAMETHOXAZOLE-TR IMETHOPRIM] Drug Allergy 01-25-20 [facility] (20 sources) Sulfamethoxazole / Trimethoprim; Translations: [SULFAMETHOXAZOLE-TR IMETHOPRIM] Drug Allergy 03-23-20 21 GI Upset [facility] Work Phone: (15 sources) Trimethoprim; Translations: [TRIMETHOPRIM] Drug Allergy 02-06-20 19 Other: See Comments, Unknown [facility] (9 sources) Sulfamethoxazole; Translations: [SULFAMETHOXAZOLE] Drug Allergy 04-05-20 21 Unknown [facility] (1 source) Sulfamethoxazole Drug Allergy 09-03-19 [facility]ository (1 source) Trimethoprim Drug Allergy 09-03-19 [facility] Repository Medications Current Medications Medication Drug Class(es) Dates Sig (Normalized) Sig (Original) acetaminophen 325 mg / HYDROcodone bitartrate 5 mg oral tablet (1 source) Opioid Agonist take 1 tablet by mouth every eight hours as needed HYDROcodone-aceta minophen (NORCO) 5-325 mg per tablet Take 1 tablet by mouth every 8 (eight) hours as needed for pain . 0 Active hydrOXYzine pamoate 25 mg oral capsule (10 sources) Antihistamine Start: 10-03-2023 End: 10-08-2023 take 1 capsule by mouth three times daily as needed for anxiety hydrOXYzine pamoate (Vistaril) 25 mg capsule Indications: Chest pain, unspecified type Take 1 capsule (25 mg) by mouth 3 times a day as needed for itching or anxiety for up to 5 days. 15 capsule 10/03/2023 Active ketorolac tromethamine 10 mg oral tablet (2 sources) Nonsteroidal Anti-inflammatory Drug, Cyclooxygenase Inhibitor Start: 03-22-2025 End: 03-27-2025 take 1 tablet by mouth every six hours for pain ketorolac (Toradol) 10 mg tablet Indications: Pain, dental Take 1 tablet (10 mg) by mouth every 6 hours if needed for moderate pain (4 - 6) for up to 5 days. 20 tablet 03/22/2025 03/27/2025 Active Start: 03-22-2025 End: 03-22-2025 inject 15 mg by intramuscular injection once 15 mg, intramuscular, Once, On Thu03/22/25 at 0910, For 1 dose naproxen 500 mg oral tablet (3 sources) Nonsteroidal Anti-inflammatory Drug Start: 10-13-2023 End: 10-28-2023 take 1 tablet by mouth twice daily at mealtime naproxen (Naprosyn) 500 mg tablet Indications: Rotator cuff injury, initial encounter Take 1 tablet (500 mg) by mouth 2 times a day with meals for 15 days. 30 tablet 10/13/2023 10/28/2023 Active penicillin v potassium 500 mg oral tablet (2 sources) Start: 03-22-2025 End: 03-29-2025 take 1 tablet by mouth four times daily penicillin v potassium (Veetid) 500 mg tablet Indications: Pain, dental Take 1 tablet (500 mg) by mouth 4 times a day for 7 days. 28 tablet 03/22/2025 03/29/2025 Active Start: 01-23-2021 End: 02-02-2021 take 1 tablet by mouth four times daily penicillin v potassium (VEETID) 500 MG tablet Take 500 mg by mouth 4 (four) times a day . 0 01/23/2021 02/02/2021 Active 0.5 ml testosterone enanthat e 100 mg/ml auto-injector (8 sources) Androgen testosterone nitza nthate (Xyosted) 50 mg/0.5 mL auto-injector Inject 1 Syringe (50 mg) under the skin every 4th day. Active Completed/Discontinued Medications Medication Drug Class(es) Dates Sig (Normalized) Sig (Original) [id number] 200 actuat albuterol 0.09 mg/actuat metered dose inhaler (5 sources) beta2-Adrenergic Agonist Start: 10-09-2020 take 2 puff(s) by inhalation every six hours as needed albuterol HFA (PROAIR HFA) 90 mcg/actuation inhaler Inhale 2 Puffs as instructed every 6 hours as needed. 8 g 0 10/09/2020 Active Comment on above: Inhale 2 Puffs as in structed every 6 hours as needed. amoxicillin 500 mg oral tablet (5 sources) Penicillin-class Antibacterial Start: 10-30-2022 take 1 tablet by mouth three times daily Amoxicillin 500 mg tablet take 1 tablet by mouth three times a day until finished 0 10/30/2022 Active Start: 08-05-2022 End: 08-12-2022 take 1 tablet by mouth twice daily amoxicillin (AMOXIL) 875 mg tablet Take 1 tablet by mouth twice daily for 7 days. 14 tablet 0 08/05/2022 08/12/2022 Active Comment on above: Take 1 tablet by zbigniew twice daily for 7 days. take 1 tablet by [facility] three times a day until finished benzocaine 0.2 mg/mg oral gel (1 source) Standardized Chemical Allergen Start: End: benzocaine 20 % jelly 0.4 ml enoxaparin sodium 100 mg/ml prefilled syringe (1 source) Low Molecular Weight Heparin Start: End: inject 40 mg by subcutaneous injection once daily 40 mg, Subcutaneous, Daily, First dose on [place] 01/24/21 at 0900 Administer in abdomen unless otherwise directed by prescriber. Notify physician if patient refuses. Indication: VTE Prophylaxis FLUoxetine 20 mg oral capsule (1 source) Serotonin Reuptake Inhibitor Start: End: take 1 capsule by mouth once daily fluoxetine (PROZAC) 20 mg ORAL capsule Indications: Depression Take one(1) capsule daily. 30 Cap 0 09/10/2010 04/15/2021 Discontinued ibuprofen 600 mg oral tablet (1 source) Nonsteroidal Anti-inflammatory Drug Start: End: ibuprofen tablet 600 mg melatonin 5 mg oral tablet (1 source) Start: End: take 5 mg by mouth once daily as needed for sleep 5 mg, Oral, Nightly PRN, Sleep, Starting on Thu01/24/21 at 0750 nicotine 4 mg inhalation solution (1 source) Cholinergic Nicotinic Agonist Start: End: nicotine (NICOTROL) 10 mg inhaler 1 Cartridge ondansetron (ZOFRAN-ODT) disintegrating tablet 4 mg (1 source) Start: End: take 1 tablet by mouth every six hours as needed ondansetron (ZOFRAN-ODT) disintegrating tablet 4 mg predniSONE 20 mg oral tablet (3 sources) Start: End: take 2 tablets by mouth once daily predniSONE (Deltasone) 20 mg tablet Indications: Sprain of left shoulder, unspecified shoulder sprain type, initial encounter Take 2 tablets orally once daily early in your day x 5 days 10 tablet 10/14/2023 12/09/2023 Discontinued (Therapy completed) raNITIdine 150 mg oral tablet (1 source) Histamine-2 Receptor Antagonist Start: End: take 1 tablet by mouth twice daily, then take 2 tablets by mouth once at mealtime ranitidine (ZANTAC) 150 mg ORAL tablet Indications: Reflux Take one (1) tablet twice daily 30 minutes before the two larger meals of the day 60 Tab 0 08/08/2010 04/15/2021 Discontinued sennosides, jail 8.6 mg oral tablet (1 source) Start: End: take 1 tablet by mouth twice daily as needed for constipation 8.6 mg (1 tablet), Oral, 2 times daily PRN, constipation, Starting on Thu01/24/21 at 0750 Sodium Chloride (2 sources) Start: End: sodium chloride (PF) (NS) flush 5 mL Start: 01-24-2021 End: 01-24-2021 sodium chloride 0.9% (NS) emili xi 1,000 mL 1 ml triamcinolone acetonide 40 mg/ml injection (2 sources) Corticosteroid Start: 10-28-2023 End: 10-28-2023 triamcinolone acetonide (Kenalog-40) injection 40 mg Start: 10-28-2023 End: 10-28-2023 40 mg, intra-articular, Once PRN Procedure, Starting on Thu10/28/23 at 0938, For 1 dose Problems Active Problems Problem Classification Problem Date Documented Date Episodic/Chronic Abdominal pain (2 sources) Right upper quadrant pain; Translations: [Right upper quadrant pain] 04-05-2021 Episodic Adjustment disorders (6 sources) Adjustment disorder; Translations: [Adjustment disorder with other symptoms] Onset: 09-06-2010 09-06-2010 Chronic Alcohol-related disorders (1 source) History of alcohol abuse; Translations: [Alcohol abuse, in remission] 09-03-2023 Chronic Anxiety disorders (1 source) Anxiety about body function or health; 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 specified anxiety disorders] Chronic Appendicitis and other appendiceal conditions (4 sources) Acute appendicitis; Translations: [Unspecified acute appendicitis] 04-05-2021 Episodic Bacterial infection; unspecified site (2 sources) Methicillin resistant Staphylococcus aureus infection; Translations: [Methicillin resistant Staphylococcus aureus infection, unspecified site] 02-05-2019 Episodic Cardiac dysrhythmias (1 source) Tachycardia; Translations: [Tachycardia, unspecified] Episodic Disorders of teeth and jaw (10 sources) Toothache; 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 specified disorders of teeth and supporting structures] Onset: 03-22-2025 Episodic Immunizations and screening for infectious disease (4 sources) Tetanus toxoid vaccination given; Translations: [Encounter for immunization] 08-17-2022 Episodic Malaise and fatigue (1 source) Fatigue; 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 fatigue] Episodic Mood disorders (6 sources) Depressive disorder; Translations: [Depression] Onset: 08-14-2010 08-14-2010 Chronic Nonspecific chest pain (1 source) Chest pain; Translations: [Chest pain, unspecified] 10-03-2023 Episodic Open wounds of extremities (2 sources) Laceration of left forearm; Translations: [Laceration without foreign body of left forearm, initial encounter] 08-17-2022 Episodic Other aftercare (2 sources) Wound finding; Translations: [Encounter for other specified aftercare] 02-06-2019 Episodic Other connective tissue disease (1 source) Other enthesopathy of right foot; 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 enthesopathy of right foot] Onset: 06-29-2018 Episodic Other injuries and conditions due to external causes (2 sources) Foreign body of eye region; Translations: [Foreign body on external eye, part unspecified, right eye, initial encounter] 09-09-2019 Episodic Other injuries and conditions due to external causes (1 source) Injury of rotator cuff; Translations: [Unspecified injury of muscle(s) and tendon(s) of the rotator cuff of unspecified shoulder, initial encounter] 10-13-2023 Episodic Other lower respiratory disease (1 source) Cough; Translations: [Acute cough] Episodic Other lower respiratory disease (1 source) Snoring; Translations: [Snoring] Episodic Other lower respiratory disease (1 source) Hemoptysis; Translations: [Hemoptysis] 10-09-2020 Episodic Other upper respiratory infections (1 source) Acute upper respiratory infection; Translations: [Acute upper respiratory infection, unspecified] Episodic Otitis media and related conditions (1 source) Acute right otitis media; Translations: [Otitis media, unspecified, right ear] Episodic Poisoning by other medications and drugs (3 sources) Drug overdose; Translations: [Poisoning by unspecified drugs, medicaments and biological substances, accidental (unintentional), initial encounter] Onset: 01-24-2021 Episodic Residual codes; unclassified (1 source) Alcoholism; Translations: [Alcohol use disorder] Episodic Substance-related disorders (2 sources) Drug abuse; 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 psychoactive substance abuse, uncomplicated] 08-08-2013 Chronic Unclassified (2 sources) Results; Translations: [Results] Onset: 01-05-2024 Past or Other Problems Problem Classification Problem Date Documented Da te Episodic/Chronic Coma; stupor; and brain damage (2 sources) Daytime somnolence; Translations: [Somnolence] Onset: 01-26-2023 Episodic Diabetes mellitus without complication (1 source) Hyperglycemia, unspecified; Translations: [Elevated blood sugar] Onset: 01-19-2023 Episodic Other lower respiratory disease (1 source) Snoring; Translations: [Snoring] Onset: 01-26-2023 Episodic Other non-traumatic joint disorders (9 sources) Pain in left shoulder; Translations: [Pain in joint, shoulder region] Onset: 10-28-2023 10-28-2023 Episodic Residual codes; unclassified (2 sources) Pain; Translations: [Pain] Onset: 01-05-2024 Episodic Sprains and strains (20 sources) Sprain of left shoulder; Translations: [Unspecified sprain of left shoulder joint, initial encounter] Onset: 10-14-2023 10-14-2023 Episodic Unclassified (6 sources) Onset: 10-30-2023 10-30-2023 Results Test Name Value Interpretation Reference Range Facility POINT OF CARE ULTRASOUND NO CHARGEon 05-25-2024 POINT OF CARE ULTRASOUND NO CHARGE These images are not reportable by radiology and will not be interpreted by Radiologists. Normal [facility] US Abdomenon 05-25-2024 These images are not reportable by radiology and will not be interpreted by Radiologists. IMAGING POINT OF CARE ULTRASOUND NO CHARGEon 02-17-2024 POINT OF CARE ULTRASOUND NO CHARGE These images are not reportable by radiology and will not be interpreted by Radiologists. Normal [facility] CNCOon 01-01-2024 CNCO Letter Text Normal [facility] MR Shoulder - left WO contra ston 12-31-2023 1. Sequela of prior anterior shoulder dislocation with soft tissue Bankart consisting of anterior and anteroinferior glenoid labral tearing, and flattening of the posterosuperior humeral head from prior Hill-Sachs impaction. 2. Tearing of the superior and posterosuperior portions of the glenoid labrum with a small paralabral cyst. 3. Moderate glenohumeral joint effusion. 4. Mild glenohumeral articular cartilage loss. I personally reviewed the images/study and I agree with the findings as stated. This study was interpreted at [place], [place]. MACRO: None Signed by: Bakari Garcia 12/31/2023 11:43 AM Dictation workstation: [id number] [facility] MMODAL Interpreted By: Bakari Garcia and Herzog Jackson STUDY: MRI of the left shoulder without IV contrast; 12/31/2023 9:05 am INDICATION: Left shoulder pain. COMPARISON: Left shoulder radiographs 10/13/2023. ACCESSION NUMBER(S): [id number] ORDERING CLINICIAN: ANAT JACOEM TECHNIQUE: MR imaging of the left shoulder was obtained without IV contrast. FINDINGS: ROTATOR CUFF TENDONS: The supraspinatus, infraspinatus, subscapularis, and teres minor tendons are intact. There is no edema or fatty atrophy of the rotator cuff musculature. BICEPS TENDON AND ROTATOR INTERVAL: The intra-articular long head biceps tendon is intact and has a normal course. The rotator interval is unremarkable. JOINTS: The acromioclavicular joint is unremarkable. Mild articular cartilage loss of the glenohumeral joint. Moderate volume glenohumeral joint effusion LABRUM: Soft tissue Bankart injury with tearing of the anterior and anteroinferior portions of the glenoid labrum at the chondrolabral junction. There is also linear fluid signal extending into the superior and posterosuperior portions of the labrum consistent with tear, and with small paralabral cyst formation adjacent to the posterosuperior labrum (image 13 of series 6). OSSEOUS STRUCTURES: There is flattening of the posterosuperior portion of the humeral head suggestive of Hill-Sachs impaction. SOFT TISSUES: The suprascapular nerve is intact at the suprascapular and spinoglenoid notches. [facility] MMODAL Bakari Garcia MD - 12/31/2023 Interpreted By: Bakari Garcia and Herzog Jackson STUDY: MRI of the left shoulder without IV contrast; 12/31/2023 9:05 am INDICATION: Left shoulder pain. COMPARISON: Left shoulder radiographs 10/13/2023. ACCESSION NUMBER(S): [id number] ORDERING CLINICIAN: ANAT JACOME TECHNIQUE: MR imaging of the left shoulder was obtained without IV contrast. FINDINGS: ROTATOR CUFF TENDONS: The supraspinatus, infraspinatus, subscapularis, and teres minor tendons are intact. There is no edema or fatty atrophy of the rotator cuff musculature. BICEPS TENDON AND ROTATOR INTERVAL: The intra-articular long head biceps tendon is intact and has a normal course. The rotator interval is unremarkable. JOINTS: The acromioclavicular joint is unremarkable. Mild articular cartilage loss of the glenohumeral joint. Moderate volume glenohumeral joint effusion LABRUM: Soft tissue Bankart injury with tearing of the anterior and anteroinferior portions of the glenoid labrum at the chondrolabral junction. There is also linear fluid signal extending into the superior and posterosuperior portions of the labrum consistent with tear, and with small paralabral cyst formation adjacent to the posterosuperior labrum (image 13 of series 6). OSSEOUS STRUCTURES: There is flattening of the posterosuperior portion of the humeral head suggestive of Hill-Sachs impaction. SOFT TISSUES: The suprascapular nerve is intact at the suprascapular and spinoglenoid notches. IMPRESSION: 1. Sequela of prior anterior shoulder dislocation with soft tissue Bankart consisting of anterior and anteroinferior glenoid labral tearing, and flattening of the posterosuperior humeral head from prior Hill-Sachs impaction. 2. Tearing of the superior and posterosuperior portions of the glenoid labrum with a small paralabral cyst. 3. Moderate glenohumeral joint effusion. 4. Mild glenohumeral articular cartilage loss. I personally reviewed the images/study and I agree with the findings as stated. This study was interpreted at [place], [place]. MACRO: None Signed by: Bakari Garcia 12/31/2023 11:43 AM Dictation workstation: [id number] [facility] Work Phone: Radiology Study observation (narrative) [facility] Work Phone: MR Shoulder - left WO contra stOrdered By: Bakari Garcia on 12-31-2023 [facility] Work Phone: L Inj/Asp: L subacromial bur saon 10-28-2023 Anat Jacome, OPTHALMIC TECH-PALM GATHERER 10/28/2023 9:39 AM L Inj/Asp: L subacromial bursa on 10/28/2023 9:38 AM Indications: pain and joint swelling Details: 22 G needle, posterior approach Medications: 40 mg triamcinolone acetonide 40 mg/mL Outcome: tolerated well, no immediate complications We discussed risk and benefits of cortisone injection, patient wishes to proceed via verbal consent. Skin was prepped with Betadine, vapo coolant spray and alcohol. Administered injection of 40 mg Kenalog, 3 cc 1% lidocaine and 3 cc of 0.25% bupivacaine. Patient tolerated injection well with lidocaine suppression. No active bleeding, bandage applied to site. Procedure, treatment alternatives, risks and benefits explained, specific risks discussed. Consent was given by the patient. Immediately prior to procedure a time out was called to verify the correct patient, procedure, equipment, technical support agent and site/side marked as required. Patient was prepped and draped in the usual sterile fashion. [facility] Work Phone: [facility] Work Phone: XR Shoulder - left 2 Viewson 10-13-2023 No findings of an acute process. Signed by Reggie Barnes MD TELERADIOLOGY STUDY: Shoulder Radiographs; 10/13/2023 5:57 AM. INDICATION: Fall with pain. COMPARISON: None Available. ACCESSION NUMBER(S): [id number] ORDERING CLINICIAN: GUY TOMLIN TECHNIQUE: Five views of the left shoulder. FINDINGS: No humeral fracture or dislocation. No clavicular fracture or dislocation identified. No fracture of the scapula is identified. No adjacent rib fracture. The visualized portions of the adjacent lung is clear. TELERADIOLOGY Reggie Barnes MD - 10/13/2023 STUDY: Shoulder Radiographs; 10/13/2023 5:57 AM. INDICATION: Fall with pain. COMPARISON: None Available. ACCESSION NUMBER(S): [id number] ORDERING CLINICIAN: GUY TOMLIN TECHNIQUE: Five views of the left shoulder. FINDINGS: No humeral fracture or dislocation. No clavicular fracture or dislocation identified. No fracture of the scapula is identified. No adjacent rib fracture. The visualized portions of the adjacent lung is clear. IMPRESSION: No findings of an acute process. Signed by Reggie Barnes MD [facility] Work Phone: Radiology Study observation (narrative) [facility] Work Phone: XR Shoulder - left 2 ViewsOr dered By: Reggie Barnes on 10-13-2023 [facility] Work Phone: CBC W Auto Differential pane l (Bld)on 10-03-2023 Basophils (Bld) [#/Vol] 0.09 10*3/uL [facility] Basophils/100 WBC (Bld) 0.8 % 0.0 - 2.0 % [facility] Eosinophils (Bld) [#/Vol] 0.52 10*3/uL [facility] Eosinophils/100 WBC (Bld) 4.6 % 0.0 - 6.0 % [facility] Erythrocyte distribution width (RBC) [Ratio] 13.1 % 11.5 - 14.5 % [facility] Hematocrit (Bld) [Volume fraction] 49.1 % 41.0 - 52.0 % [facility] Hemoglobin (Bld) [Mass/Vol] 16.5 g/dL 13.5 - 17.5 g/dL [facility] Immature granulocytes (Bld) [#/Vol] 0.19 10*3/uL [facility] Immature granulocytes/100 WBC (Bld) 1.7 % High 0.0 - 0.9 % [facility] Comment on above: Immature Granulocyte Count (IG) includes promyelocytes, myelocytes and metamyelocytes but does not include bands. Percent differential counts (%) should be interpreted in the context of the absolute cell counts (cells/UL). Interpretation and review of laboratory results Abnormal [facility] Lymphocytes (Bld) [#/Vol] 2.28 10*3/uL [facility] Lymphocytes/100 WBC (Bld) 20.3 % 13.0 - 44.0 % [facility] MCH (RBC) [Entitic mass] 31.2 pg 26.0 - 34.0 pg [facility] MCHC (RBC) [Mass/Vol] 33.6 g/dL 32.0 - 36.0 g/dL [facility] MCV (RBC) [Entitic vol] 93 fL 80 - 100 fL [facility] Monocytes (Bld) [#/Vol] 0.91 10*3/uL [facility] Monocytes/100 WBC (Bld) 8.1 % 2.0 - 10.0 % [facility] Neutrophils (Bld) [#/Vol] 7.22 10*3/uL [facility] Comment on above: Percent differential counts (%) should be interpreted in the context of the absolute cell counts (cells/uL). Neutrophils/100 WBC (Bld) 64.5 % 40.0 - 80.0 % [facility] Nucleated RBC/100 WBC (Bld) [Ratio] 0.0 % [facility] Platelets (Bld) [#/Vol] 274 10*3/uL [facility] RBC (Bld) [#/Vol] 5.29 10*6/uL [facility] WBC (Bld) [#/Vol] 11.2 10*3/uL [facility] Comprehensive metabolic 2000 panelon 10-03-2023 Albumin BCP dye [Mass/Vol] 4.3 g/dL 3.4 - 5.0 g/dL [facility] ALP [Catalytic activity/Vol] 89 U/L 33 - 120 U/L [facility] ALT With P-5'-P [Catalytic activity/Vol] 22 U/L 10 - 52 U/L [facility] Comment on above: Patients treated wit h Sulfasalazine may generate falsely decreased results for ALT. Anion gap [Moles/Vol] 11 mmol/L 10 - 2 0 mmol/L [facility] AST With P-5'-P [Catalytic activity/Vol] 19 U/L 9 - 39 U/L [facility] Bilirubin [Mass/Vol] 0.7 mg/dL 0.0 - 1 .2 mg/dL [facility] Calcium [Mass/Vol] 9.0 mg/dL 8.6 - 10. 3 mg/dL [facility] Chloride [Moles/Vol] 103 mmol/L 98 - 10 7 mmol/L [facility] CO2 [Moles/Vol] 25 mmol/L 21 - 32 mmol/L [facility] Creatinine [Mass/Vol] 0.76 mg/dL 0.50 - 1.30 mg/dL [facility] eGFR - PINF [facility] Comment on above: Calculations of estrella mated GFR are performed using the 2020 CKD-EPI Study Refit equation without the race variable for the IDMS-Traceable creatinine methods. https://jasn.asnjournals.org/content/early//ASN.36792 44895 Glucose [Mass/Vol] 99 mg/dL 74 - 99 mg/dL [facility] Interpretation and review of laboratory results Abnormal [facility] Potassium [Moles/Vol] 4.4 mmol/L 3.5 - 5.3 mmol/L [facility] Protein [Mass/Vol] 6.5 g/dL 6.4 - 8.2 g/dL [facility] Sodium [Moles/Vol] 135 mmol/L Low 136 - 145 mmol/L [facility] Urea nitrogen [Mass/Vol] 16 mg/dL 6 - 23 mg/dL [facility] ECG 12-LEADon 10-03-2023 ECG 12-LEAD Ventricular Rate 96 Atrial Rate 96 P-R Interval 170 QRS Duration 86 Q-T Interval 334 QTC Calculation(Bazett) 421 P Revillo 47 R Revillo 89 T Revillo 60 QRS Count 16 Q Onset 226 P Onset 141 P Offset 183 T Offset 393 QTC Fredericia 390 Diagnosis Normal sinus rhythm with sinus arrhythmia Normal ECG When compared with ECG of 02-OCT-2023 23:08, (unconfirmed) Incomplete right bundle branch block is no longer Present See ED provider note for full interpretation and clinical correlation Confirmed by Alisha Caraballo ([id number]) on 10/06/2023 12:53:57 PM Normal [facility] Magnesiumon 10-03-2023 Magnesium [Mass/Vol] 2.13 mg/dL 1.60 - 2.40 mg/dL [facility] Magnesium [Mass/Vol]on 10-02 Interpretation and review of laboratory results Normal [facility] No Panel Informationon 10-02 [facility] Tropinin I.cardiac panel Hig h sensitivity methodon 10-03-2023 Interpretation and review of laboratory results Normal [facility] Less than 99th percentile of normal range cutoff- Female and children under 18 years old <14 ng/L; Male <21 ng/L: Negative Repeat testing should be performed if clinically indicated. Female and children under 18 years old 14-50 ng/L; Male 21-50 ng/L: Consistent with possible cardiac damage and possible increased clinical risk. Serial measurements may help to assess extent of myocardial damage. >50 ng/L: Consistent with cardiac damage, increased clinical risk and myocardial infarction. Serial measurements may help assess extent of myocardial damage. NOTE: Children less than 1 year old may have higher baseline troponin levels and results should be interpreted in conjunction with the overall clinical context. NOTE: Troponin I testing is performed using a different testing methodology at [facility] than at other [facility]. Direct result comparisons should only be made within the same method. [facility] Interpretation and review of laboratory results Normal [facility] Less than 99th percentile of normal range cutoff- Female and children under 18 years old <14 ng/L; Male <21 ng/L: Negative Repeat testing should be performed if clinically indicated. Female and children under 18 years old 14-50 ng/L; Male 21-50 ng/L: Consistent with possible cardiac damage and possible increased clinical risk. Serial measurements may help to assess extent of myocardial damage. >50 ng/L: Consistent with cardiac damage, increased clinical risk and myocardial infarction. Serial measurements may help assess extent of myocardial damage. NOTE: Children less than 1 year old may have higher baseline troponin levels and results should be interpreted in conjunction with the overall clinical context. NOTE: Troponin I testing is performed using a different testing methodology at [facility] than at other [facility]. Direct result comparisons should only be made within the same method. [facility] Troponin I, High Sensitivity , Initialon 10-03-2023 Tropinin I.cardiac panel High sensitivity method 5 ng/L 0 - 20 ng/L [facility] Troponin, High Sensitivity, 1 Houron 10-03-2023 Tropinin I.cardiac panel High sensitivity method 4 ng/L 0 - 20 ng/L [facility] XR Chest Single viewon 10-02 1. No evidence of acute cardiopulmonary process. MACRO: None Signed by: Ajit Yusuf 10/03/2023 8:20 AM Dictation workstation: [id number] Interpreted By: Ajit Yusuf, STUDY: XR CHEST 1 VIEW; 10/03/2023 8:10 am INDICATION: Signs/Symptoms:Ches t Pain. COMPARISON: None. ACCESSION NUMBER(S): [id number] ORDERING CLINICIAN: GUY TOMLIN FINDINGS: CARDIOMEDIASTINAL SILHOUETTE: Cardiomediastinal silhouette is normal in size and configuration. LUNGS: Lungs are clear. ABDOMEN: No remarkable upper abdominal findings. BONES: No acute osseous changes. MMODAL Ajit Yusuf MD - 10/03/2023 Interpreted By: Ajit Yusuf, STUDY: XR CHEST 1 VIEW; 10/03/2023 8:10 am INDICATION: Signs/Symptoms:Ches t Pain. COMPARISON: None. ACCESSION NUMBER(S): [id number] ORDERING CLINICIAN: GUY TOMLIN FINDINGS: CARDIOMEDIASTINAL SILHOUETTE: Cardiomediastinal silhouette is normal in size and configuration. LUNGS: Lungs are clear. ABDOMEN: No remarkable upper abdominal findings. BONES: No acute osseous changes. IMPRESSION: 1. No evidence of acute cardiopulmonary process. MACRO: None Signed by: Ajit Yusuf 10/03/2023 8:20 AM Dictation workstation: [id number] [facility] Work Phone: Radiology Study observation (narrative) [facility] Work Phone: XR Chest Single viewOrdered By: Ajit Yusuf on 10-03-2023 [facility] Work Phone: Emergency Department Summary on 09-03-2023 Emergency Department Summary [facility] Medical Records Department [address] [place] [address] Emergency Department Summary 09/03/23 MR#: [id number] Acct: [id number] Name: INDIRA PAIZ Rep #: [id number] : 1995 27 From: Dong Whitaker MD PCP: Care Physician,No Primary Status:REG ER Location: ED HPI History of Present Illness Chief Complaint: Substance Abuse Informant: patient Associated Symptoms Associated Symptoms: Negative for vomiting*, diarrhea*, fever* or change in mental status Narrative Narrative: 27-year-old male history of alcohol abuse for last 4 years drinks about a pint of either vodka or whiskey a day. Just went through detox a month ago near [facility]. He is currently staying in a male snf house cold pathway which is associated with 180. He was told to come to the ER today. He denies any complaints. He denies any nausea or vomiting. Patient is not looking for inpatient detox. Prior similar symptoms: Yes Recent Illness/Hospitaliza tion: Yes PFSH PFSH Home Medications NK 04/05/21 [History Last Taken Unknown] Allergy/AdvReac Type Severity Reaction Status Date / Time sulfamethoxazole Allergy Other Verified 09/03/23 15:41 [From Bactrim] trimethoprim [From Bactrim] Allergy Other Verified 09/03/23 15:41 Surgical History History of appendectomy Social History Smoking Status: Current every day smoker tobacco type: cigarettes ROS ROS ED ROS Narrative Denies recent illness. Review of Systems ROS Unobtainable: Denies due to encephalopathy Constitutional Constitutional ED: Denies chills or fever(s) Eyes Eyes: Denies blurry vision ENT ENT ED: Denies ear pain Cardiovascular Cardiovascular: Denies chest pain Respiratory/Chest Respiratory/Chest: Denies cough Gastrointestinal Gastrointestinal: Denies abdominal pain, diarrhea, nausea or vomiting Genitourinary Genitourinary ED: Denies dysuria Musculoskeletal Musculoskeletal: Denies arthralgias Integumentary Denies abscess Neurologic Neurologic: Denies headache(s) Psychiatric Psychiatric: Denies anxiety Endocrine Endocrinology: Denies cold intolerance Hematologic/Lymphat ic Hematologic/Lymphat ic: Denies easy bleeding, easy bruising or lymphadenopathy Allergic/Immunologi c Allergic/Immunologi c ED: Denies mouth swelling, tongue swelling or urticaria EXAM Physical Exam Narrative Exam Narrative: Well-appearing 18-year-old male vital signs stable afebrile. He does not look septic guys he is in no distress. He was sitting in a chair when I walked in the room. H EENT exam unremarkable. Moist membranes. Neck nontender no lymphadenopathy. Lungs clear to auscultation bilaterally. Heart regular rhythm rate about 100 no murmur. Chest wall nontender. Abdomen soft nontender. Moving all 4 extremities. Nontender no edema. Back nontender. Neurologically is awake and alert with no focal motor deficits. Answering questions and following commands. Const Vital Signs: 09/03/23 15:41 Temperature 97.8 F Temperature Source Temporal Pulse Rate 113 H Respiratory Rate 16 Blood Pressure 154/100 H Blood Pressure Mean 118 Pulse Ox 100 Oxygen Delivery Method Room Air Positive well nourished and well developed; Negative for obese, cachectic, contractures or unkempt General Appearance ED: well developed and NAD; Negative for unkempt, cachectic, contractures or pallor Nutritional Appearance: Negative for cachectic or obese HEENT Reports moist mucous membranes; Denies dry mucous membranes atraumatic; Negative for trauma or tenderness Mouth ED: No dry mucous membranes Mouth: No dry mucous membranes Eyes PERRL and EOMs intact bilaterally General Eye ED: Negative for pale conjunctiva or scleral icterus Neck no lymphadenopathy, supple and no JVD Thyroid: Negative for tender Lymph Lymphatic: no lymphadenopathy noted; Negative for lymphadenopathy Chest Wall inspection of chest normal and palpation of chest normal Chest: Negative for other Resp normal respiratory effort and clear to auscultation bilaterally Effort and Inspection: Negative for retractions Auscultation: Negative for rales, rhonchi or wheezes Cardio regular rate, regular rhythm, S1 normal heart sound, S2 normal heart sound and no murmurs Rate: Negative for bradycardia or tachycardic Rhythm: Negative for abnormal rhythm Bruits: Negative for other GI soft to palpation, non-tender, non-distended and no masses Inspection: Negative for abdominal distention Palpation: Negative for tender or guarding Back/Spine no CVA tenderness General Back: Negative for CVA tenderness Cervical Spine: Negative for cervical spine tenderness Thoracic Spine / Upper Back: Negative for thoracic spinal (more content not included)... Normal [facility] [facility] [facility] INDIRA [facility]IZ ([id number]) 1995 [facility] Date Time Provider Department [facility]/06[facility] During your visit today, we recorded the following information about you: Ingrid Amador LPN 02/06/2023 2:04 PM Signed ----- Message from Ernestina Méndez APRN.CNP sent at 02/04/2023 4:35 PM EDT ----- Home sleep study inconclusive due to no supine sleep. Recommend in lab study if patient agreeable CLAYTON Patel Lori, LPN 02/06/2023 2:07 PM Signed Phoned patient and reviewed results and recommendations with him. Patient voiced understanding and agreeable to in lab sleep study. Ernestina Méndez APRN.CNP 02/09/2023 9:37 AM Signed Order for sleep study placed. He may call and schedule at his convenience. CLAYTON Patel Lori, LPN 02/09/2023 12:30 PM Signed Phoned patient and updated him of provider's message. Patient voiced understanding. Ingrid Amador LPN Allergies As of Date: 02/06/2023 Noted Allergy Reaction BACTRIM (SULFAMETHOXAZOLE-T RIMETH*10/09/2020 8 - GI Upset Comments: blood shot eyes Chilled bad Skin red TRIMETHOPRIM 02/05/2019 14 - Other: See Comments Date Reviewed: 12/31/2022 Reviewed by: Cari Matthews LPN - Fully Assessed Reason for Visit: Results [95] Primary Visit Diagnosis:FARHAT (obstructive sleep apnea) [G47.33] Order(s):PAP TITRATION PSG (CPAP, BIPAP, ASV) [4691638] Order #: [id number] FUTURE Prescriptions as of 02/09/2023 - Amoxicillin 500 mg tablet take 1 tablet by mouth three times a day until finished - albuterol HFA (PROAIR HFA) 90 mcg/actuation inhaler Inhale 2 Puffs as instructed every 6 hours as needed. 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 Date Time Provider Department 01/21/23 [facility] During your visit today, we recorded the following information about you: Cari Matthews LPN 01/21/2023 4:46 PM Signed ----- Message from Ernestina Méndez APRN.PALM GATHERER sent at 01/21/2023 11:03 AM EDT ----- A1c in normal range. CLAYTON Patel LPN 01/21/2023 4:49 PM Signed Patient telephoned on both numbers, no VM setup. Please try back later. DELONTE Garza Ma 01/22/2023 2:17 PM Signed Patient notified via [employer]. Allergies As of Date: 01/21/2023 Noted Allergy Reaction BACTRIM (SULFAMETHOXAZOLE-T RIMETH*10/09/2020 8 - GI Upset Comments: blood shot eyes Chilled bad Skin red TRIMETHOPRIM 02/05/2019 14 - Other: See Comments Date Reviewed: 12/31/2022 Reviewed by: Cari Matthews LPN - Fully Assessed Reason for Visit: Results [95] Prescriptions as of 01/22/2023 - Amoxicillin 500 mg tablet take 1 tablet by mouth three times a day until finished - albuterol HFA (PROAIR HFA) 90 mcg/actuation inhaler Inhale 2 Puffs as instructed every 6 hours as needed. 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 Well adolescent visit [Z00.129] 02/07/2011 Class: Chronic Encounter Status:Closed by PILO SANTOYO MA on 01/22/23 Normal [facility] HbA1c (Bld)on 01-19-2023 Average glucose Estimated from glycated hemoglobin (Bld) [Mass/Vol] 108 mg/dL Normal [facility] Comment on above: Order Comment: Miladis linn Type: BLOOD SPECIMEN Ordering Facility: [facility] Address: [address] [place] [address] Result Comment: eAG: (Estimated average glucose) is a calculated value from HgbA1c and is advertising account representative of the average blood glucose level in the last 2-3 month period. Performed By: #### 5 5454-3 #### [facility] CLIA [id number] [address] [facility] [address] [place] HbA1c (Bld) [Mass fraction] 5.4 % Normal 4.3-5.6 [facility] Comment on above: Order Comment: Miladis linn Type: BLOOD SPECIMEN Ordering Facility: [facility] Address: [address] [address] Result Comment: Aureliano ican Diabetes Association guidelines indicate that patients with HgbA1c in the range 5.7-6.4% are at increased risk for development of diabetes, and intervention by lifestyle modification may be beneficial. HgbA1c greater or equal to 6.5% is considered diagnostic of diabetes. Performed By: #### 5 5454-3 #### [facility] CLIA [id number] [address] [place] [address] [place] .Auto Diffon 08-06-2021 Basophil, Absolute 0.10 10 3/mcL Normal 0.00-0.19 [facility] ([place]) Comment on above: Performed By: #### C BC, ADIFF, ANEU, TROPHS, CMP, GFR #### [address] [address] Basophils/100 WBC (Bld) 0.8 % Normal 0.0-2.5 [facility] ([place]) Comment on above: Performed By: #### C BC, ADIFF, ANEU, TROPHS, CMP, GFR #### [address] [address] Eosinophil, Absolute 0.10 10 3/mcL Normal 0.00-0.40 A [facility] ([place]) Comment on above: Performed By: #### C BC, ADIFF, ANEU, TROPHS, CMP, GFR #### [address] [address] Eosinophils/100 WBC (Bld) 0.7 % Normal 0.0-7.0 [facility] ([place]) Comment on above: Performed By: #### C BC, ADIFF, ANEU, TROPHS, CMP, GFR #### [address] [address] Lymphocyte, Absolute 0.90 10 3/mcL Normal 0.77-3.85 A [facility] ([place]) Comment on above: Performed By: #### C BC, ADIFF, ANEU, TROPHS, CMP, GFR #### [address] [address] Lymphocytes/100 WBC (Bld) 10.9 % Normal 10.0-50.0 [facility] ([place]) Comment on above: Performed By: #### C BC, ADIFF, ANEU, TROPHS, CMP, GFR #### [address] [address] Monocyte, Absolute 1.60 10 3/mcL High 0.15-1.00 [facility] ([place]) Comment on above: Performed By: #### C BC, ADIFF, ANEU, TROPHS, CMP, GFR #### [address] [address] Monocytes/100 WBC (Bld) 19.2 % High 1.7-13.0 [facility] ([place]) Comment on above: Performed By: #### C BC, ADIFF, ANEU, TROPHS, CMP, GFR #### [address] [address] Neutrophils/100 WBC (Bld) 68.4 % Normal 37.0-80.0 [facility] ([place]) Comment on above: Performed By: #### C BC, ADIFF, ANEU, TROPHS, CMP, GFR #### [address] [address] .GFRon 08-06-2021 GFR 98 ml/min/1.73sqm Normal [facility] ([place]) Comment on above: Result Comment: GFR Population mean for , Non- Americans Ages 20-29 = 116 mL/min/1.73 sq.m. Ages 30-39 = 107 mL/min/1.73 sq.m. Ages 40-49 = 99 mL/min/1.73 sq.m. Ages 50-59 = 93 mL/min/1.73 sq.m. Ages 60-69 = 85 mL/min/1.73 sq.m. Ages 70+ = 75 mL/min/1.73 sq.m. Chronic Kidney Disease: Less than 60 mL/min/1.73 square meters End Stage Renal Disease: Less than 15 mL/min/1.73 square meters Performed By: #### C BC, ADIFF, ANEU, TROPHS, CMP, GFR #### [address] [address] GFR Non- 81 ml/min/1.73sqm Normal [facility] ([place]) Comment on above: Result Comment: GFR Population mean for , Non- Americans Ages 20-29 = 116 mL/min/1.73 sq.m. Ages 30-39 = 107 mL/min/1.73 sq.m. Ages 40-49 = 99 mL/min/1.73 sq.m. Ages 50-59 = 93 mL/min/1.73 sq.m. Ages 60-69 = 85 mL/min/1.73 sq.m. Ages 70+ = 75 mL/min/1.73 sq.m. Chronic Kidney Disease: Less than 60 mL/min/1.73 square meters End Stage Renal Disease: Less than 15 mL/min/1.73 square meters Performed By: #### C BC, ADIFF, ANEU, TROPHS, CMP, GFR #### [address] [address] GFR 85 ml/min/1.73sqm Normal [facility] ([place]) Comment on above: Result Comment: GFR Population mean for , Non- Americans Ages 20-29 = 116 mL/min/1.73 sq.m. Ages 30-39 = 107 mL/min/1.73 sq.m. Ages 40-49 = 99 mL/min/1.73 sq.m. Ages 50-59 = 93 mL/min/1.73 sq.m. Ages 60-69 = 85 mL/min/1.73 sq.m. Ages 70+ = 75 mL/min/1.73 sq.m. Chronic Kidney Disease: Less than 60 mL/min/1.73 square meters End Stage Renal Disease: Less than 15 mL/min/1.73 square meters Performed By: #### C BC, ADIFF, ANEU, TROPHS, CMP, GFR #### [address] [address] GFR Non- 70 ml/min/1.73sqm Normal [facility] ([place]) Comment on above: Result Comment: GFR Population mean for , Non- Americans Ages 20-29 = 116 mL/min/1.73 sq.m. Ages 30-39 = 107 mL/min/1.73 sq.m. Ages 40-49 = 99 mL/min/1.73 sq.m. Ages 50-59 = 93 mL/min/1.73 sq.m. Ages 60-69 = 85 mL/min/1.73 sq.m. Ages 70+ = 75 mL/min/1.73 sq.m. Chronic Kidney Disease: Less than 60 mL/min/1.73 square meters End Stage Renal Disease: Less than 15 mL/min/1.73 square meters Performed By: #### C BC, ADIFF, ANEU, TROPHS, CMP, GFR #### [place] [address] .NEUABSon 08-06-2021 Neutrophil, Absolute 5.80 10 3/mcL Normal 2.85-6.16 A [facility] ([place]) Comment on above: Performed By: #### C BC, ADIFF, ANEU, TROPHS, CMP, GFR #### [place] [address] .Urinalysis Microscopic (AO) on 08-06-2021 UA Bacteria Trace Abnormal [facility] ([place]) Comment on above: Performed By: #### U A, UAMICAO #### [place] [address] UA Mucous 2+ /hpf Normal [facility] ([place]) Comment on above: Performed By: #### U A, UAMICAO #### [place] [address] UA RBC 0-5 Abnormal None Seen [facility] ([place]) Comment on above: Performed By: #### U A, UAMICAO #### [address] [address] UA Squam Epithelial None Seen Normal None Seen [facility] ([place]) Comment on above: Performed By: #### U A, UAMICAO #### [place] [address] UA WBC 0-5 Abnormal None Seen [facility] ([place]) Comment on above: Performed By: #### U A, UAMICAO #### [address] [address] BMPon 08-06-2021 BUN/Creatinine Ratio 15 ratio Normal 7-27 [facility] ([place]) Comment on above: Performed By: #### C BC, ADIFF, ANEU, TROPHS, CMP, GFR #### [address] [address] Calcium [Mass/Vol] 8.5 mg/dL Normal 8.4-10.2 [facility] ([place]) Comment on above: Performed By: #### C BC, ADIFF, ANEU, TROPHS, CMP, GFR #### [address] [address] Chloride [Moles/Vol] 102 mmol/L Normal 98-107 [facility] ([place]) Comment on above: Performed By: #### C BC, ADIFF, ANEU, TROPHS, CMP, GFR #### [place] [id number] CO2 [Moles/Vol] 23 mmol/L Normal 22-29 [facility] ([place]) Comment on above: Performed By: #### C BC, ADIFF, ANEU, TROPHS, CMP, GFR #### [address] [address] Creatinine [Mass/Vol] 1.09 mg/dL Normal 0.70-1.30 [facility] ([place]) Comment on above: Performed By: #### C BC, ADIFF, ANEU, TROPHS, CMP, GFR #### [address] [address] Electrolyte Balance 13.0 mEq/L Normal 4.0-15.0 [facility] ([place]) Comment on above: Performed By: #### C BC, ADIFF, ANEU, TROPHS, CMP, GFR #### [address] [address] Glucose [Mass/Vol] 116 mg/dL High 70-105 [facility] ([place]) Comment on above: Performed By: #### C BC, ADIFF, ANEU, TROPHS, CMP, GFR #### [address] [address] Potassium [Moles/Vol] 3.7 mmol/L Normal 3.5-5.1 [facility] ([place]) Comment on above: Performed By: #### C BC, ADIFF, ANEU, TROPHS, CMP, GFR #### [address] [address] Sodium [Moles/Vol] 138 mmol/L Normal 136-145 [facility] ([place]) Comment on above: Performed By: #### C BC, ADIFF, ANEU, TROPHS, CMP, GFR #### [address] [address] Urea nitrogen [Mass/Vol] 16 mg/dL Normal 7-18 [facility] ([place]) Comment on above: Performed By: #### C BC, ADIFF, ANEU, TROPHS, CMP, GFR #### [address] [address] CBCon 08-06-2021 Erythrocyte distribution width (RBC) [Ratio] 13.8 % Normal 11.5-14.5 [facility] ([place]) Comment on above: Performed By: #### C BC, ADIFF, ANEU, TROPHS, CMP, GFR #### [address] [address] Hematocrit (Bld) [Volume fraction] 46.8 % Normal 42.0-52.0 [facility] ([place]) Comment on above: Performed By: #### C BC, ADIFF, ANEU, TROPHS, CMP, GFR #### [address] [address] Hgb 16.2 G/dL Normal 14.0-18.0 [facility] ([place]) Comment on above: Performed By: #### C BC, ADIFF, ANEU, TROPHS, CMP, GFR #### [address] [address] MCH (RBC) [Entitic mass] 31.0 pg Normal 27.0-31.2 [facility] ([place]) Comment on above: Performed By: #### C BC, ADIFF, ANEU, TROPHS, CMP, GFR #### [place] [id number] MCHC 34.6 G/dL Normal 31.8-35.4 [facility] ([place]) Comment on above: Performed By: #### C BC, ADIFF, ANEU, TROPHS, CMP, GFR #### [address] [address] MCV (RBC) [Entitic vol] 89.6 fL Normal 80.0-94.0 [facility] ([place]) Comment on above: Performed By: #### C BC, ADIFF, ANEU, TROPHS, CMP, GFR #### [address] [address] Platelet 227 10 3/mcL Normal 130-400 [facility] ([place]) Comment on above: Performed By: #### C BC, ADIFF, ANEU, TROPHS, CMP, GFR #### [address] [address] Platelet mean volume (Bld) [Entitic vol] 8.1 fL Normal 7.4-10.4 [facility] ([place]) Comment on above: Performed By: #### C BC, ADIFF, ANEU, TROPHS, CMP, GFR #### [address] [address] RBC 5.22 10 6/mcL Normal 4.04-6.13 [facility] ([place]) Comment on above: Performed By: #### C BC, ADIFF, ANEU, TROPHS, CMP, GFR #### [place] [address] WBC 8.50 10 3/mcL Normal 4.60-10.80 [facility] ([place]) Comment on above: Performed By: #### C BC, ADIFF, ANEU, TROPHS, CMP, GFR #### [place] [id number] CMPon 08-06-2021 Albumin Level 4.2 G/dL Normal 3.5-5.0 [facility] ([place]) Comment on above: Performed By: #### C BC, ADIFF, ANEU, TROPHS, CMP, GFR #### [address] [address] Albumin/Globulin [Mass ratio] 1.2 {ratio} Normal 1.1-2.5 [facility] ([place]) Comment on above: Performed By: #### C BC, ADIFF, ANEU, TROPHS, CMP, GFR #### [address] [address] ALP [Catalytic activity/Vol] 138 U/L High 40-135 [facility] ([place]) Comment on above: Performed By: #### C BC, ADIFF, ANEU, TROPHS, CMP, GFR #### [address] [address] ALT [Catalytic activity/Vol] 83 U/L High 16-63 [facility] ([place]) Comment on above: Performed By: #### C BC, ADIFF, ANEU, TROPHS, CMP, GFR #### [address] [address] AST [Catalytic activity/Vol] 56 U/L High 10-40 [facility] ([place]) Comment on above: Performed By: #### C BC, ADIFF, ANEU, TROPHS, CMP, GFR #### [address] [address] Bili Total 0.5 mg/dL Normal 0.2-1.0 [facility] ([place]) Comment on above: Result Comment: Use of this assay is not recommended for patients undergoing treatment with eltrombopag due to the potential for falsely elevated results. Performed By: #### C BC, ADIFF, ANEU, TROPHS, CMP, GFR #### [address] [address] BUN/Creatinine Ratio 14 ratio Normal 7-27 [facility] [place] Comment on above: Performed By: #### C BC, ADIFF, ANEU, TROPHS, CMP, GFR #### [address] [address] Calcium [Mass/Vol] 9.1 mg/dL Normal 8.4-10.2 [facility] ([place] Comment on above: Performed By: #### C BC, ADIFF, ANEU, TROPHS, CMP, GFR #### [address] [address] Chloride [Moles/Vol] 96 mmol/L Low 98-107 [facility] ([place] Comment on above: Performed By: #### C BC, ADIFF, ANEU, TROPHS, CMP, GFR #### [place] [id number] CO2 [Moles/Vol] 25 mmol/L Normal 22-29 [facility] ([place] Comment on above: Performed By: #### C BC, ADIFF, ANEU, TROPHS, CMP, GFR #### [place] [address] Creatinine [Mass/Vol] 1.24 mg/dL Normal 0.70-1.30 [facility] ([place] Comment on above: Performed By: #### C BC, ADIFF, ANEU, TROPHS, CMP, GFR #### [address] [address] Electrolyte Balance -5.0 mEq/L Low 4.0-15.0 [facility] ([place] Comment on above: Performed By: #### C BC, ADIFF, ANEU, TROPHS, CMP, GFR #### [address] [address] Globulin 3.5 G/dL Normal [facility] ([place] Comment on above: Performed By: #### C BC, ADIFF, ANEU, TROPHS, CMP, GFR #### [address] [address] Glucose [Mass/Vol] 120 mg/dL High 70-105 [facility] ([place] Comment on above: Performed By: #### C BC, ADIFF, ANEU, TROPHS, CMP, GFR #### [address] [address] Potassium [Moles/Vol] 3.8 mmol/L Normal 3.5-5.1 [facility] ([place] Comment on above: Performed By: #### C BC, ADIFF, ANEU, TROPHS, CMP, GFR #### [address] [address] Sodium [Moles/Vol] 116 mmol/L Critically abnormal 136-145 [facility] ([place] Comment on above: Performed By: #### C BC, ADIFF, ANEU, TROPHS, CMP, GFR #### [place] [address] Total Protein 7.7 G/dL Normal 6.4-8.2 [facility] ([place] Comment on above: Performed By: #### C BC, ADIFF, ANEU, TROPHS, CMP, GFR #### [place] [address] Urea nitrogen [Mass/Vol] 17 mg/dL Normal 7-18 [facility] ([place] Comment on above: Performed By: #### C BC, ADIFF, ANEU, TROPHS, CMP, GFR #### [place] [address] [id number] 08-06-2021 Date of Onset [id number] Invalid Interpretation Code [facility] ([place] Comment on above: Performed By: #### C BC, ADIFF, ANEU, TROPHS, CMP, GFR #### [place] [address] Employed in Healthcare [facility] ([place] Comment on above: Performed By: #### C BC, ADIFF, ANEU, TROPHS, CMP, GFR #### [place] [address] First Test Unknown [facility] ([place] Comment on above: Performed By: #### C BC, ADIFF, ANEU, TROPHS, CMP, GFR #### [place] [address] Hospitalized [facility] [place] Comment on above: Performed By: #### C BC, ADIFF, ANEU, TROPHS, CMP, GFR #### [place] [address] ICU No [facility] ([place] Comment on above: Performed By: #### C BC, ADIFF, ANEU, TROPHS, CMP, GFR #### [address] [address] Not [facility] ([place] Comment on above: Performed By: #### C BC, ADIFF, ANEU, TROPHS, CMP, GFR #### [place] [address] Resides in Congregate Care Setting No [facility] ([place] Comment on above: Performed By: #### C BC, ADIFF, ANEU, TROPHS, CMP, GFR #### [address] [address] SARS-CoV-2 (COVID-19) RNA KELLY+probe Ql (Unsp spec) Negative Normal Negative [facility] ([place] Comment on above: Performed By: #### C BC, ADIFF, ANEU, TROPHS, CMP, GFR #### [place] [address] SARS-CoV-2 (COVID-19) RNA KELLY+probe Ql (Unsp spec) [facility] ([place] Comment on above: Result Comment: Nega tive results do not preclude SARS-CoV-2 infection and should not be used as the sole basis for patient management decisions. Negative results must be combined with clinical observations, patient history, and epidemiological information. There is a risk of false negative values resulting from improperly collected, transported, or handled specimens. There is a risk of false negative values due to the presence of sequence variants in the pathogen targets of the assay, procedural errors, amplification inhibitors in specimens, or inadequate numbers of organisms for amplification. CHUN SARS-CoV-2 Assay is a Real-Time reverse-transcriptase polymerase chain reaction (RT-PCR) based qualitative in vitro diagnostic test intended for the qualitative detection of nucleic acid from the SARS-CoV-2 in nasopharyngeal swab specimens collected from individuals suspected of COVID-19 by their healthcare provider. Testing is limited to laboratories certified under the Clinical Laboratory Improvement Amendments of 1988 (CLIA), 42 U.S.C. ?263a, to perform moderate and high complexity tests. COVID-19 Int Performed By: #### C BC, ADIFF, ANEU, TROPHS, CMP, GFR #### Alexsandra Marcell [address], [place] [address] Symptomatic as Defined by CDC Yes Normal [facility] ([place] Comment on above: Performed By: #### C BC, ADIFF, ANEU, TROPHS, CMP, GFR #### Alexsandra Marcell [address] [place], [place] [address] CT HEAD OR BRAIN W/O CONTRAS Ton 08-06-2021 CT HEAD OR BRAIN W/O CONTRAST ORIGINAL EXAMINATION: CT OF THE HEAD WITHOUT CONTRAST 08/06/2021 6:05 am TECHNIQUE: CT of the head was performed without the administration of intravenous contrast. Dose modulation, iterative reconstruction, and/or weight based adjustment of the mA/kV was utilized to reduce the radiation dose to as low as reasonably achievable. COMPARISON: None. HISTORY: ORDERING SYSTEM PROVIDED HISTORY: Reason for Exam: pain/headache FINDINGS: BRAIN/VENTRICLES: There is no acute intracranial hemorrhage, mass effect or midline shift. No abnormal extra-axial fluid collection. The alvarez-white differentiation is maintained without evidence of an acute infarct. There is no evidence of hydrocephalus. ORBITS: The visualized portion of the orbits demonstrate no acute abnormality. SINUSES: The visualized paranasal sinuses and mastoid air cells demonstrate no acute abnormality. SOFT TISSUES/SKULL: No acute abnormality of the visualized skull or soft tissues. IMPRESSION: No visible acute intracranial abnormality. Preliminary Report was Dictated by a Resident RECOMMENDATIONS: Unavailable Interpreted by: Rashad Arellano MD Preliminary Report By: Noemi Maldonado Electronically signed By Rashad Arellano MD Dictated Date: 08/06/2021 6:08:47 AM Prelim Date: 08/06/2021 6:10:42 AM Sign Date: 08/06/2021 6:28:46 AM Ordering Provider: MELLISSA MARTE Normal [facility] ([place]) DIMERon 08-06-2021 D-Dimer <200 Normal 0-230 [facility] ([place] Comment on above: Result Comment: The result of the D-Dimer test should be evaluated in the context of all the clinical and laboratory data available. In those instances where the laboratory result does not agree with the clinical evaluation, additional tests should be performed accordingly. If the D-Dimer result is used to exclude DVT or PE, the recommended cutoff value is less than 230 ng/mL. The D-Dimer result should not be used alone to rule in DVT/PE, but should be used in conjunction with a clinical pretest probability (PTP)assessment model to exclude venous thromboembolism (VTE) in outpatients suspected of deep venous thrombosis (DVT) and pulmonary embolism (PE). Performed By: #### D KANDICE #### [place] [address] TROPHSon 08-06-2021 Troponin I High Sensitivity 6.3 ng/L Normal 0.0-76.2 [facility] ([place] Comment on above: Performed By: #### C BC, ADIFF, ANEU, TROPHS, CMP, GFR #### [place] [address] UAon 08-06-2021 Color (U) Allyson Normal [facility] ([place] Comment on above: Performed By: #### U A, UAMICAO #### [place] [address] Glucose (U) [Mass/Vol] Negative Normal Negative [facility] ([place] Comment on above: Performed By: #### U A, UAMICAO #### [place] [id number] Ketones Ql (U) 40 mg/dL Abnormal Negative [facility] ([place] Comment on above: Performed By: #### U A, UAMICAO #### [place] [address] UA Appear Slightly Cloudy Abnormal Clear [facility] ([place] Comment on above: Performed By: #### U A, UAMICAO #### [place] [address] UA Bili Small Abnormal Negative [facility] ([place] Comment on above: Performed By: #### U A, UAMICAO #### [address] [address] UA Blood Negative Normal Negative [facility] ([place] Comment on above: Performed By: #### U A, UAMICAO #### [address] [address] UA Leuk Est Negative Normal Negative [facility] ([place] Comment on above: Performed By: #### U A, UAMICAO #### [address] [address] UA Nitrite Negative Normal Negative [facility] ([place] Comment on above: Performed By: #### U A, UAMICAO #### [address] [address] UA pH 5.5 Normal 5.0 - 8.0 [facility] ([place] Comment on above: Performed By: #### U A UAMICAO #### [place] [id number] UA Protein 30 mg/dL Normal Negative [facility] ([place] Comment on above: Performed By: #### U A UAMICAO #### [place] [address] UA Spec Grav >=1.030 Abnormal 1.015-1.025 [facility] ([place] Comment on above: Performed By: #### U A UAMICAO #### [address] [address] UA Specimen Type Clean Catch Normal [facility] ([place] Comment on above: Performed By: #### U A, UAMICAO #### [place] [id number] UA Urobilinogen 0.2 E.U./dL Normal 0.2-1.0 [facility] ([place] Comment on above: Performed By: #### U A, UAMICAO #### [place] [id number] XR CHEST 1 VIEWon 08-06-2021 XR CHEST 1 VIEW ORIGINAL EXAMINATION: ONE XRAY VIEW OF THE CHEST 08/06/2021 6:04 am COMPARISON: None. HISTORY: ORDERING SYSTEM PROVIDED HISTORY: Reason for Exam: SOB/cough/fever FINDINGS: Cardiomediastinal silhouette is within normal limits. No large dense consolidation, vascular congestion, pneumothorax, or large pleural effusion. No acute osseous abnormality. IMPRESSION: No acute radiographic findings. I have personally reviewed the images of this examination and agree with the resident's findings and interpretation. Interpreted by: Rashad Arellano MD Preliminary Report By: Noemi Maldonado Electronically signed By Rashad Arellano MD Dictated Date: 08/06/2021 6:08:02 AM Prelim Date: 08/06/2021 6:08:36 AM Sign Date: 08/06/2021 6:27:28 AM Ordering Provider: MELLISSA MARTE [facility] ([place] Acetaminophen LevelOrdered B y: Robert Valdez on 01-24-2021 Acetaminophen [Mass/Vol] ug/mL [facility] Acetaminophen LevelOrdered B y: Noemi Abdullahi on 01-24-2021 Acetaminophen [Mass/Vol] 5.5 ug/mL [facility] Acetaminophen [Mass/Vol]Orde red By: Robert Valdez on 01-24-2021 Interpretation and review of laboratory results Normal [facility] Acetaminophen [Mass/Vol]Orde red By: Noemi Abdullahi on 01-24-2021 Interpretation and review of laboratory results Normal [facility] BLOOD GAS, VBG WITH FULL SMALL ELOrdered By: Noemi Abdullahi on 01-24-2021 Base excess Calc (BldV) [Moles/Vol] 2.1 mmol/L High [facility] Calcium.ionized [Mass/Vol] 4.4 mg/dL Low 4.5 - 5.3 mg/dL [facility] Carboxyhemoglobin (BldA) [Mass fraction] 5.4 High <=1.5 % of total Hb [facility] Comment on above: Reference Ranges: Suburban Non-smokers: <1.5% Smokers: 1.5-5.0% Heavy Smokers: 5.0-9.0% CO2 (BldV) [Partial pressure] 41.1 mm[Hg] [facility] Glucose [Mass/Vol] 160 mg/dL High 65 - 99 mg/dL [facility] HCO3 (Bld) [Moles/Vol] 26.2 mmol/L 24.0 - 28.0 mmol/L [facility] Hematocrit (BldA) [Volume fraction] 51.3 % 41.0 - 53.0 % [facility] Hemoglobin (Bld) [Mass/Vol] 16.8 g/dL 13.5 - 17.5 g/dL [facility] Interpretation and review of laboratory results Abnormal [facility] Lactate [Moles/Vol] 2.0 mmol/L 0.6 - 2. 0 mmol/L [facility] Methemoglobin (BldA) [Mass fraction] 0.6 % 0.0 - 2.0 % [facility] Oxygen (BldV) [Partial pressure] 33 mm[Hg] [facility] Oxygen saturation in Venous blood 68.9 % 40.0 - 70.0 % [facility] Oxyhemoglobin (BldA) [Mass fraction] 64.8 % No established reference range [facility] pH (BldV) 7.42 [pH] [facility] Potassium [Moles/Vol] 3.8 mmol/L 3.5 - 5.1 mmol/L [facility] Sodium [Moles/Vol] 141 mmol/L 135 - 145 mmol/L [facility] Basic metabolic 2000 panelOr dered By: Noemi Abdullahi on 01-24-2021 Anion gap [Moles/Vol] 19 mmol/L 10 - 2 0 mmol/L [facility] Calcium [Mass/Vol] 9.4 mg/dL 8.4 - 10. 2 mg/dL [facility] Chloride [Moles/Vol] 100 mmol/L 98 - 10 8 mmol/L [facility] Creatinine [Mass/Vol] 0.87 mg/dL 0.50 - 1.30 [facility] GFR/1.73 sq M.predicted CKD-EPI (S/P/Bld) [Vol rate/Area] 118 >=60 mL/min/1.73 m2 [facility] Glucose [Mass/Vol] 159 mg/dL High 65 - 99 mg/dL [facility] HCO3 [Moles/Vol] 23 mmol/L 21 - 32 mmol/L [facility] Potassium [Moles/Vol] 3.7 mmol/L 3.5 - 5.1 mmol/L [facility] Sodium [Moles/Vol] 138 mmol/L 135 - 145 mmol/L [facility] Urea nitrogen [Mass/Vol] 17 mg/dL 8 - 25 mg/dL [facility] Urea nitrogen/Creatinine [Mass ratio] 19.5 mg/mg [facility] The eGFR should be used for monitoring renal function only and not for medication dosing. [facility] CBC WITH AUTO DIFFERENTIALOr dered By: Noemi Abdullahi on 01-24-2021 Basophils (Bld) [#/Vol] 0.07 10*3/uL [facility] Basophils/100 WBC (Bld) 0.5 % [facility] Eosinophils (Bld) [#/Vol] 0.31 10*3/uL [facility] Eosinophils/100 WBC (Bld) 2.1 % [facility] Erythrocyte distribution width (RBC) [Entitic vol] 12.4 % 11.6 - 14.8 % [facility] Hematocrit (Bld) [Volume fraction] 47.8 % 41.0 - 53.0 % [facility] Hemoglobin (Bld) [Mass/Vol] 16.5 g/dL 13.5 - 17.5 g/dL [facility] Immature granulocytes (Bld) [#/Vol] 0.12 10*3/uL [facility] Immature granulocytes/100 WBC (Bld) 0.80 % [facility] Comment on above: The IG parameter is the percentage of metamyelocytes, myelocytes and promyelocytes. An immature granulocyte count (IG) of 1% or more suggests the possibility of infection, an IG count of 3% is very likely related to an infection. Interpretation and review of laboratory results Abnormal [facility] Lymphocytes (Bld) [#/Vol] 1.91 10*3/uL [facility] Lymphocytes/100 WBC (Bld) 13.2 % [facility] MCH (RBC) [Entitic mass] 31.2 pg 26.0 - 34.0 pg [facility] MCHC (RBC) [Mass/Vol] 34.5 g/dL 31.0 - 37.0 g/dL [facility] MCV (RBC) [Entitic vol] 90.4 fL 80.0 - 100.0 fL [facility] Monocytes (Bld) [#/Vol] 0.96 10*3/uL High [facility] Monocytes/100 WBC (Bld) 6.6 % [facility] Neutrophils (Bld) [#/Vol] 11.12 10*3/uL High [facility] Neutrophils/100 WBC (Bld) 76.8 % [facility] Nucleated RBC (Bld) [#/Vol] 0.00 10*3/uL [facility] Nucleated RBC/100 WBC (Bld) [Ratio] 0.0 % [facility] Platelet mean volume (Bld) [Entitic vol] 9.7 fL 9.4 - 12.4 fL [facility] Platelets (Bld) [#/Vol] 307 10*3/uL [facility] RBC (Bld) [#/Vol] 5.29 10*6/uL [facility] WBC (Bld) [#/Vol] 14.49 10*3/uL [facility] COVID-19, MOLECULARon 2020 SARS-CoV-2 (COVID-19) RNA KELLY+probe Ql (Unsp spec) Not detected Normal Not Detected [facility] Comment on above: Order Comment: This test was performed under the FDA's Emergency Use Authorization (EUA). Testing was performed using the Gerry Hernandez SARS-CoV-2 RT-PCR AND Influenza A/B Nucleic Acid Test on the Hernandez Rekha System. This test has not been approved for use in asymptomatic patients and its performance in this patient population has not been evaluated. Negative results do not rule out the presence of SARS-CoV-2, influenza A, and/or influenza B. Fact sheets for the EUA can be found at the following links: For Healthcare Providers: https://www.fda.gov/media/732606/download For Patients: https://www.fda.gov/media/934956/download Performed By: #### L [id number] #### [facility] [address], [place] [address] Sina Hardy M.D. [id number] DRUGS OF ABUSE SCREEN, URINE Ordered By: Noemi Abdullahi on 01-24-2021 Amphetamines Ql (U) Not detected None Detected [facility] Comment on above: Urine Amphetamine Cu toff: < 1000 ng/mL = None Detected Barbiturates Screen Ql (U) Not detected None Detected [facility] Comment on above: Urine Barbiturates C utoff: < 200 ng/mL = None Detected Benzodiazepines Ql (U) Not detected None Detect ed [facility] Comment on above: Urine Benzodiazepine Cutoff: < 200 ng/mL = None Detected Buprenorphine Ql (U) Not detected None Detected [facility] Comment on above: Urine Buprenorphine Cutoff: < 5 ng/mL = None Detected Cannabinoids Screen Ql (U) Not detected None Detected [facility] Comment on above: Urine Cannabinoids C utoff: < 50 ng/mL = None Detected Cocaine Ql (U) Not detected None Detected [facility] Comment on above: Urine Cocaine Cutoff : < 300 ng/mL = None Detected fentaNYL+Norfentanyl Screen Ql (U) Not detected None Detected [facility] Comment on above: Urine Fentanyl Cutof f: < 1 ng/mL = None Detected Interpretation and review of laboratory results Abnormal [facility] Methadone Screen Ql (U) Not detected None Detected [facility] Comment on above: Urine Methadone Cuto ff: < 300 ng/mL = None Detected Opiates Screen Ql (U) Positive Abnormal None Detected [facility] Comment on above: Urine Opiates Cutoff : < 300 ng/mL = None Detected oxyCODONE Ql (U) Not detected None Detected [facility] Comment on above: Urine Oxycodone Cuto ff: < 100 ng/mL = None Detected Screen results should be used for treatment purposes only. Specimen will be kept for 2 weeks, if the sample is adequate. Confirmation testing can be initiated by calling the lab within 2 weeks. [facility] ECG 12-LEADOrdered By: Noemi Abdullahi on 01-24-2021 Noemi Abdullahi II, MD 01/24/2021 4:31 AM ECG 12 Lead Date/Time: 01/24/2021 3:37 AM Performed by: Noemi Abdullahi II, MD Authorized by: Noemi Abdullahi II, MD Interpreted by ED attending physician Rhythm: sinus tachycardia BPM: 107 Conduction: incomplete RBBB ST Segments: ST segments normal T Flattening: V2 Clinical impression: non-specific ECG and sinus tachycardia [facility] Hepatic function 1999 panelO rdered By: Robert Valdez on 01-24-2021 Albumin [Mass/Vol] 4.0 g/dL 3.2 - 5.2 g/dL [facility] ALP [Catalytic activity/Vol] 113 U/L 40 - 140 U/L [facility] ALT [Catalytic activity/Vol] 45 U/L High 0 - 40 U/L [facility] AST [Catalytic activity/Vol] 27 U/L 0 - 45 U/L [facility] Bilirubin [Mass/Vol] 0.4 mg/dL 0.0 - 1 .3 mg/dL [facility] Bilirubin.conjugated [Mass/Vol] 0.2 mg/dL 0.0 - 0.4 mg/dL [facility] Interpretation and review of laboratory results Abnormal [facility] Protein [Mass/Vol] 6.6 g/dL 6.0 - 8.0 g/dL [facility] Hepatic function 1999 panelO rdered By: Noemi Abdullahi on 01-24-2021 Albumin [Mass/Vol] 4.5 g/dL 3.2 - 5.2 g/dL [facility] ALP [Catalytic activity/Vol] 126 U/L 40 - 140 U/L [facility] ALT [Catalytic activity/Vol] 52 U/L High 0 - 40 U/L [facility] AST [Catalytic activity/Vol] 35 U/L 0 - 45 U/L [facility] Bilirubin [Mass/Vol] 0.3 mg/dL 0.0 - 1 .3 mg/dL [facility] Bilirubin.conjugated [Mass/Vol] 0.1 mg/dL 0.0 - 0.4 mg/dL [facility] Interpretation and review of laboratory results Abnormal [facility] Protein [Mass/Vol] 7.3 g/dL 6.0 - 8.0 g/dL [facility] INR Coag (PPP) [Relative ever e]Ordered By: Robert Valdez on 01-24-2021 Interpretation and review of laboratory results Abnormal [facility] PT Coag (PPP) [Time] 14.5 s High [facility] During the induction phase of oral anticoagulation, the INR may not reflect the anticoagulation status of the patient. Therapeutic ranges for INR's are: Most clinical situations: INR 2.0-3.0 Mechanical Prosthetic Valve: INR 2.5-3.5 Critical: INR >5.0 [facility] No Panel InformationOrdered By: Robert Valdez on 01-24-2021 [facility] No Panel InformationOrdered By: Noemi Abdullahi on 01-24-2021 Interpretation and review of laboratory results Abnormal [facility] PT/INROrdered By: Robert carmen on 01-24-2021 INR Coag (PPP) [Relative time] 1.2 {INR} High [facility] SARS-CoV-2 (COVID-19) RdRp g jayshree KELLY+probe Ql (Resp)Ordered By: Axel Davis on 01-24-2021 Interpretation and review of laboratory results Normal [facility] SARS-CoV-2 (COVID-19) RNA KELLY+probe Ql (Resp) Not detected Not Detected [facility] This test was performed under the FDA's Emergency Use Authorization (EUA). Testing was performed using the Gerry Hernandez SARS-CoV-2 RT-PCR & Influenza A/B Nucleic Acid Test on the Hernandez Rekha System. This test has not been approved for use in asymptomatic patients and its performance in this patient population has not been evaluated. Negative results do not rule out the presence of SARS-CoV-2, influenza A, and/or influenza B. Fact sheets for the EUA can be found at the following links: For Healthcare Providers: https://www.fda.gov /media/362477/downl oad For Patients: https://www.fda.gov /media/975254/downl oad [facility] Salicylate LevelOrdered By: Noemi Abdullahi on 01-24-2021 Salicylates [Mass/Vol] 6.8 mg/dL Low 10.0 - 20.0 mg/dL [facility] URINALYSISOrdered By: Noemi pierce on 01-24-2021 Bacteria Auto Ql (U) None Seen None Se en /hpf [facility] Clarity Refractometry automated (U) Clear Clear [facility] Color (U) Yellow Colorless, Yellow [facility] Glucose Auto test strip (U) [Mass/Vol] 50 Abnormal Negative mg/dL [facility] Ketones (U) [Mass/Vol] 20 mg/dL Abnormal Negat toribio mg/dL [facility] Leukocyte esterase Auto test strip Ql (U) Negative Negative [facility] h pH (U) 6.0 [pH] [facility] Specific gravity (U) [Rel density] 1.024 [facility] UrinalysisOrdered By: Noemi pierce on 01-24-2021 Bilirubin Ql (U) Negative Negative [facility] th Hemoglobin Auto test strip Ql (U) Small Abnormal Negative [facility] Interpretation and review of laboratory results Abnormal [facility] Mucus Auto (Urine sed) [#/Area] Rare None Seen, Rare /lpf [facility] Nitrite Auto test strip Ql (U) Negative Negative [facility] Protein (U) [Mass/Vol] Negative Negat toribio mg/dL [facility] RBC Auto (Urine sed) [#/Area] 24 High [facility] Urobilinogen (U) [Mass/Vol] mg/dL <2.0 mg/dL [facility] WBC Auto (Urine sed) [#/Area] 1 [facility] Microscopic examination is performed on all urinalysis samples and only positive findings are reported. The test for blood on the chemical analytic portion of urinalysis may also be positive due to hemoglobinuria and myoglobinuria and if red blood cells are present they are quantified by microscopic examination. [facility] XR Chest PA and Lateralon IMPRESSION: No acute radiographic abnormality. Skinner Pelts: JAIDEN Transcribe Date/Time: Oct 09 2020 8:57A Dictated by : PATO CRAIG MD This examination was interpreted and the report reviewed and electronically signed by: PATO CRAIG MD on Oct 09 2020 8:58AM [facility] [place] DIVISION OF RADIOLOGY * * *Final Report* * * DATE OF EXAM: Oct 09 2020 8:54AM WOX [id number] - XR CHEST 2V FRONTAL/LAT / PROCEDURE REASON: Cough with hemoptysis * * * * Physician Interpretation * * * * EXAMINATION: CHEST RADIOGRAPH (2 VIEW FRONTAL & LATERAL) CLINICAL HISTORY: Cough with hemoptysis MQ: XC2_6 EXAM DATE/TIME: 10/09/2020 8:54 AM COMPARISON: Chest x-ray on 05/31/2011. RESULT: Lines, tubes, and devices: None. Lungs and pleura: No consolidation. No lung mass. No pleural effusion. No pneumothorax. Cardiomediastinal silhouette: Normal cardiomediastinal silhouette. Bones and soft tissues: Unremarkable. DIVISION OF RADIOLOGY Provider, [facility] [place] - 10/09/2020 * * *Final Report* * * DATE OF EXAM: Oct 09 2020 8:54AM WOX [id number] - XR CHEST 2V FRONTAL/LAT / PROCEDURE REASON: Cough with hemoptysis * * * * Physician Interpretation * * * * EXAMINATION: CHEST RADIOGRAPH (2 VIEW FRONTAL & LATERAL) CLINICAL HISTORY: Cough with hemoptysis MQ: XC2_6 EXAM DATE/TIME: 10/09/2020 8:54 AM COMPARISON: Chest x-ray on 05/31/2011. RESULT: Lines, tubes, and devices: None. Lungs and pleura: No consolidation. No lung mass. No pleural effusion. No pneumothorax. Cardiomediastinal silhouette: Normal cardiomediastinal silhouette. Bones and soft tissues: Unremarkable. IMPRESSION IMPRESSION: No acute radiographic abnormality. Skinner Pelts: JAIDEN Transcribe Date/Time: Oct 09 2020 8:57A Dictated by : PATO CRAIG MD This examination was interpreted and the report reviewed and electronically signed by: PATO CRAIG MD on Oct 09 2020 8:58AM EST [facility] Radiology Study observation (narrative) [facility] XR Chest PA and LateralOrder ed By: [facility] Provider on 10-09-2020 [facility] Vital Signs Date Time Vital Sign Value Performing Clinician Facility 03-22-2025 08:59-0400 Body height 175.3 cm Guy Tomlin DO Work Phone: [facility] 03-22-2025 08:59-0400 Body mass index (BMI) [Ratio] 29.53 kg/m2 Guy Tomlin DO Work Phone: [facility] 03-22-2025 08:59-0400 Body temperature 97.81 [degF] Guy Star DO Work Phone: [facility] 03-22-2025 08:59-0400 Body weight 90.72 kg Guybritni Tomlin DO Work Phone: [facility] 03-22-2025 08:59-0400 Diastolic blood pressure 91 mm[Hg] Guy Star DO Work Phone: [facility] 03-22-2025 08:59-0400 Heart rate 96 /min Guy Star DO Work Phone: [facility] 03-22-2025 08:59-0400 Respiratory rate 16 /min Guy Star DO Work Phone: [facility] 03-22-2025 08:59-0400 SaO2% (BldA) [Mass fraction] 99 % Guy Star DO Work Phone: [facility] 03-22-2025 08:59-0400 Systolic blood pressure 140 mm[Hg] Guy Star DO Work Phone: [facility] 10-13-2023 06:39-0400 Diastolic blood pressure 90 mm[Hg] Guy Star DO Work Phone: [facility] 10-13-2023 06:39-0400 Heart rate 114 /min Guy Cantunde DO Work Phone: [facility] 10-13-2023 06:39-0400 Respiratory rate 18 /min Guy Tomlin DO Work Phone: [facility] 10-13-2023 06:39-0400 SaO2% (BldA) [Mass fraction] 97 % Guy Tomlin DO Work Phone: [facility] 10-13-2023 06:39-0400 Systolic blood pressure 120 mm[Hg] Guy Lemtunde DO Work Phone: [facility] 10-13-2023 05:26-0400 Body height 175.3 cm Guy Tomlin DO Work Phone: [facility] 10-13-2023 05:26-0400 Body mass index (BMI) [Ratio] 33.23 kg/m2 Guy Tomlin DO Work Phone: [facility] 10-13-2023 05:26-0400 Body temperature 98.4 [degF] Guy Tomlin DO Work Phone: [facility] 10-13-2023 05:26-0400 Body weight 102.06 kg Guy Tomlin DO Work Phone: [facility] 10-03-2023 08:30-0400 Diastolic blood pressure 71 mm[Hg] Guy Tomlin DO Work Phone: [facility] 10-03-2023 08:30-0400 Heart rate 86 /min Guy Tomlin DO Work Phone: [facility] 10-03-2023 08:30-0400 Respiratory rate 16 /min Guy Tomlin DO Work Phone: [facility] 10-03-2023 08:30-0400 SaO2% (BldA) [Mass fraction] 97 % Guy Tomlin DO Work Phone: [facility] 10-03-2023 08:30-0400 Systolic blood pressure 121 mm[Hg] Guy Star DO Work Phone: [facility] 10-03-2023 07:26-0400 Body height 175.3 cm Guy Tomlin DO Work Phone: [facility] 10-03-2023 07:26-0400 Body mass index (BMI) [Ratio] 32.49 kg/m2 Guy Tomlin DO Work Phone: [facility] 10-03-2023 07:26-0400 Body temperature 97.9 [degF] Guy Tomlin DO Work Phone: [facility] 10-03-2023 07:26-0400 Body weight 99.79 kg Guy Tomlin DO Work Phone: [facility] 09-03-2023 15:41-0500 Body height 172.72 cm [facility] 09-03-2023 15:41-0500 Body mass index (BMI) [Ratio] 31.9 kg/m2 [facility] 09-03-2023 15:41-0500 Body temperature 97.8 [degF] [facility] 09-03-2023 15:41-0500 Body weight 95.25 kg [facility] 09-03-2023 15:41-0500 Diastolic blood pressure 100 mm[Hg] [facility] 09-03-2023 15:41-0500 Heart rate 113 /min [facility] 09-03-2023 15:41-0500 Respiratory rate 16 /min [facility] 09-03-2023 15:41-0500 SaO2% (BldA) [Mass fraction] 100 % [facility] 09-03-2023 15:41-0500 Systolic blood pressure 154 mm[Hg] [facility] 12-31-2022 14:11-0400 Body height 175.2 cm Ernestina Podlogar OPTHALMIC TECH.PALM GATHERER Work Phone: [facility] 12-31-2022 14:11-0400 Body weight 113.4 kg Ernestina Podlogar OPTHALMIC TECH.PALM GATHERER Work Phone: [facility] 12-31-2022 14:11-0400 Diastolic blood pressure 84 mm[Hg] Ernestina Podlogar OPTHALMIC TECH.PALM GATHERER Work Phone: [facility] 12-31-2022 14:11-0400 Heart rate 100 /min Ernestina Podlogar OPTHALMIC TECH.PALM GATHERER Work Phone: [facility] 12-31-2022 14:11-0400 Respiratory rate 18 /min Ernestina Podlogar OPTHALMIC TECH.PALM GATHERER Work Phone: [facility] 12-31-2022 14:11-0400 SaO2% (BldA) [Mass fraction] 97 % Ernestina Podlogar OPTHALMIC TECH.PALM GATHERER Work Phone: [facility] 12-31-2022 14:11-0400 Systolic blood pressure 136 mm[Hg] Ernestina Podlogar OPTHALMIC TECH.PALM GATHERER Work Phone: [facility] 08-17-2022 06:23-0500 Body height 172.72 cm [facility] 08-17-2022 06:23-0500 Body mass index (BMI) [Ratio] 37 kg/m2 [facility] 08-17-2022 06:23-0500 Body temperature 96.5 [degF] [facility] 08-17-2022 06:23-0500 Body weight 110.5 kg [facility] 08-17-2022 06:23-0500 Diastolic blood pressure 99 mm[Hg] [facility] 08-17-2022 06:23-0500 Heart rate 132 /min [facility] 08-17-2022 06:23-0500 Respiratory rate 20 /min [facility] 08-17-2022 06:23-0500 SaO2% (BldA) [Mass fraction] 99 % [facility] 08-17-2022 06:23-0500 Systolic blood pressure 156 mm[Hg] [facility] 08-05-2022 13:31-0500 Body temperature 98.71 [degF] Lay BEARDEN Work Phone: [facility] 08-05-2022 13:31-0500 Body weight 113.13 kg Lay BEARDEN Work Phone: [facility] 08-05-2022 13:31-0500 Diastolic blood pressure 90 mm[Hg] Krislyn Aberegg PA Work Phone: [facility] 08-05-2022 13:31-0500 Heart rate 78 /min Krislyn Aberegg PA Work Phone: [facility] 08-05-2022 13:31-0500 Respiratory rate 18 /min Krislyn Aberegg PA Work Phone: [facility] 08-05-2022 13:31-0500 SaO2% (BldA) [Mass fraction] 98 % Krislyn Aberegg PA Work Phone: [facility] 08-05-2022 13:31-0500 Systolic blood pressure 136 mm[Hg] Krislyn Aberegg PA Work Phone: [facility] 01-24-2021 10:10-0400 Diastolic blood pressure 102 mm[Hg] Noemi Abdullahi II, MD Work Phone: [facility] 01-24-2021 10:10-0400 Respiratory rate 20 /min Noemi Abdullahi II, MD Work Phone: [facility] 01-24-2021 10:10-0400 SaO2% (BldA) [Mass fraction] 98 % Noemi Abdullahi II, MD Work Phone: [facility] 01-24-2021 10:10-0400 Systolic blood pressure 144 mm[Hg] Noemi Abdullahi II, MD Work Phone: [facility] 01-24-2021 04:17-0400 Heart rate 105 /min Noemi Abdullahi II, MD Work Phone: [facility] 01-24-2021 03:27-0400 Body height 180.3 cm Noemi Abdullahi II, MD Work Phone: [facility] 01-24-2021 03:27-0400 Body mass index (BMI) [Ratio] 34.87 kg/m2 Noemi Abdullahi II, MD Work Phone: [facility] 01-24-2021 03:27-0400 Body temperature 97.39 [degF] Noemi Abdullahi II, MD Work Phone: [facility] 01-24-2021 03:-040 Body weight 113.4 kg Noemi Abdullahi II, MD Work Phone: [facility] Encounters Encounter Date Encounter Type Care Provider Facility Start: 03-22-2025 End: 03-22-2025 Emergency department patient visit Guy Tomlin DO Work Phone: [facility] Emergency Medicine Comment on above: Pain, dental (Primar y Dx) Start: 05-25-2024 End: 05-25-2024 Subsequent hospital visit by physician [facility] EXTERNAL FILM [facility]IRTUAL Comment on above: Arrived Start: 05-25-2024 End: 05-25-2024 ambulatory [facility] Start: 05-03-2024 ambulatory [facility] Start: 03-03-2024 End: 03-03-2024 Subsequent hospital visit by physician Aayush Marreroy100 X-Ray [facility] Comment on above: Labral tear of shoul columba, left, initial encounter Start: 03-03-2024 End: 03-03-2024 ambulatory [facility] Start: 03-03-2024 End: 03-03-2024 Encounter for other preprocedural examination [facility] Start: 03-03-2024 End: 03-03-2024 Office outpatient visit 25 minutes Theresa Landry MD Work Phone: [facility] Comment on above: Pre-op testing Start: 03-03-2024 End: 03-03-2024 Patient encounter status Theresa Landry MD Work Phone: [facility] Start: 02-17-2024 End: 02-17-2024 ambulatory [facility] Start: 01-05-2024 End: 01-05-2024 ambulatory [facility] Start: 12-31-2023 End: 12-31-2023 Subsequent hospital visit by physician Aayush Hansen [facility] Comment on above: Sprain of left shoul columba, unspecified shoulder sprain type, initial encounter Start: 12-09-2023 End: 12-09-2023 ambulatory [facility] Start: 12-09-2023 End: 12-09-2023 Office outpatient visit 15 minutes Anat Jacome OPTHALMIC TECH-Sharetribe Work Phone: [facility] Comment on above: Sprain of left shoul columba, unspecified shoulder sprain type, initial encounter (Primary Dx) Start: 10-28-2023 End: 10-28-2023 ambulatory [facility] Start: 10-28-2023 End: 10-28-2023 Office outpatient visit 25 minutes Anat Jacome OPTHALMIC TECH-Sharetribe Work Phone: [facility] Comment on above: Sprain of left shoul columb[place], unspecified shoulder sprain type, initial encounter (Primary Dx); Acute pain of left shoulder Start: 10-14-2023 End: 10-14-2023 Office outpatient new 45 minutes Anat Jacome OPTHALMIC TECH-Sharetribe Work Phone: [facility] Comment on above: Sprain of left shoul columba, unspecified shoulder sprain type, initial encounter (Primary Dx) Start: 10-14-2023 End: 10-14-2023 ambulatory [facility] Start: 10-13-2023 End: 10-13-2023 Emergency department patient visit Guy Tomlin DO Work Phone: [facility] Emergency Medicine Comment on above: Rotator cuff injury, initial encounter (Primary Dx) Start: 10-03-2023 End: 10-03-2023 Subsequent hospital visit by physician Aayush Shearer [facility] Comment on above: Arrived Start: 10-03-2023 End: 10-03-2023 Emergency department patient visit Guy Tomlin DO Work Phone: [facility] Medicine Comment on above: Chest pain, unspecif ied type (Primary Dx) Start: 09-08-2023 Encounter for [facility] adult medical examination without abnormal findings [facility] Start: 09-03-2023 End: 09-03-2023 Emergency department patient visit Dong Whitaker Facility:[facility] Start: 09-03-2023 Patient encounter status [facility] Start: 09-03-2023 End: 09-03-2023 Emergency department patient visit [facility] Work Phone: Start: 01-26-2023 End: 01-27-2023 ambulatory PAMELA DE LEON Facility:[facility] Start: 01-21-2023 Telephone encounter Pablo De Leon MD Work Phone: [facility] Comment on above: Results Start: 01-19-2023 End: 01-19-2023 ambulatory ERNESTINA DE SOUZALOGSHRUTI Facility:[facility] Start: 01-02-2023 [facility] Work Phone: Neurology Comment on above: HSAT Check In (Adult ) Start: 12-31-2022 End: 12-31-2022 Patient encounter procedure Ernestina Méndez APRN.PALM GATHERER Work Phone: [facility] Comment on above: Encounter for medica l examination to establish care (Primary Dx); Special screening examination for viral disease; Screening for HIV (human immunodeficiency virus); Daytime somnolence; Snoring; Fatigue, unspecified type; Alcohol use disorder Start: 12-31-2022 End: 12-31-2022 Patient encounter status Ernestina Méndez APRN.PALM GATHERER Work Phone: [facility] Start: 08-17-2022 End: 08-17-2022 Emergency department patient visit [facility] Start: 08-06-2022 Telephone encounter Viji hernandez PA-C Work Phone: [facility] Comment on above: Results Start: 08-05-2022 End: 08-05-2022 Patient encounter procedure Lay BEARDEN Work Phone: [facility] Comment on above: Acute cough (Primary Dx); URI, acute; Acute otitis media, right Start: 01-24-2021 End: 01-24-2021 Emergency department patient visit ROBERT VALDEZ [facility] Start: 01-24-2021 End: 01-24-2021 Emergency department patient visit Noemi Abdullahi MD Work Phone: [facility] Emergency Department Start: 10-09-2020 End: 10-09-2020 Subsequent hospital visit by physician Xr [facility] Anastasia Work Phone: Radiology Comment on above: Cough with hemoptysi s [R04.2] Start: 06-29-2018 End: 06-29-2018 Emergency department patient visit NOEMI GANN [facility] Start: 02-07-2011 Patient encounter status Parker hernandezbritni lazarus BEARDEN Work Phone: [facility] Work Phone: Procedures Date Procedure Procedure Detail Performing Clinician Start: 05-25-2024 US Abdomen Theresa ascencio MD Work Phone: Start: 01-05-2024 Follow-up visit Follow-up ANAT JACOME Start: 12-31-2023 Mri any jt upper ext remity w/o contrast matrl Anat Jacome OPTHALMIC TECH-PALM GATHERER Work Phone: Start: 10-28-2023 Arthrocentesis aspir &/inj major jt/bursa w/o us Anat Jacome OPTHALMIC TECH-PALM GATHERER Work Phone: Start: 10-13-2023 Radex shoulder compl ete minimum 2 views Guy Tomlin DO Work Phone: Start: 10-03-2023 Ecg routine ecg w/le ast 12 lds trcg only w/o i&r Guy Tomlin DO Work Phone: Start: 10-03-2023 Radiologic exam ches t single view Guy Tomlin DO Work Phone: Start: 10-03-2023 End: 10-03-2023 Comprehensive metabolic panel Guy Tomlin DO Work Phone: Start: 10-03-2023 Troponin I.cardiac p antonio - Serum or Plasma by High sensitivity method Guy Tomlin DO Work Phone: Start: 01-24-2021 Acetaminophen blood measurement Robert Valdez DO Work Phone: Start: 01-24-2021 Hepatic function panel Robert Valdez DO Work Phone: Start: 01-24-2021 Prothrombin time Mio Valdez DO Work Phone: Start: 01-24-2021 SARS-CoV-2 (COVID-19 ) RdRp gene [Presence] in Respiratory specimen by KELLY with probe detection Axel Davis MD Work Phone: Start: 01-24-2021 Gases blood ph direc t vivian xcpt pulse oximitry Noemi Abdullahi MD Work Phone: Start: 01-24-2021 Drug tst prsmv instr mnt chem analyzers pr date Noemi Abdullahi MD Work Phone: Start: 01-24-2021 Urnls dip stick/tabl et reagent auto microscopy Noemi Abdullahi MD Work Phone: Start: 01-24-2021 Acetaminophen blood measurement Noemi Abdullahi MD Work Phone: Start: 01-24-2021 Basic metabolic pane l calcium total Noemi Abdullahi MD Work Phone: Start: 01-24-2021 Salicylate blood measurement Noemi Abdullahi MD Work Phone: Start: 01-24-2021 Ecg routine ecg w/le ast 12 lds w/i&r Noemi Abdullahi MD Work Phone: Start: 10-09-2020 Radiologic exam ches t 2 views Viji Warner PA-C Work Phone: Plan of Treatment Date Care Activity Detail Author Start: 2053 RSV patient s and/or patients aged 60+ years (1 - 1-dose 60+ series) RSV patients and/or patients aged 60+ years (1 - 1-dose 60+ series) [facility] Start: 10-24-2043 Zoster Vaccines (1 of 2) Zoster Vacc domitila (1 of 2) [facility] Start: 08-17-2032 DTaP/Tdap/Td Vaccine s (7 - Td or Tdap) DTaP/Tdap/Td Vaccines (7 - Td or Tdap) [facility] Start: 08-17-2032 Urine microalbumin profile DTaP,Tdap,Td Vaccine (7 - Td or Tdap) [facility] Start: 03-20-2025 COVID-19 Vaccine ( season) COVID-19 Vaccine ( season) [facility] Start: 03-20-2025 Influenza vaccination Influenza Vacc ine (#1) [facility] Start: 06-28-2024 End: 06-28-2024 Patient encounter procedure 06/28/2024 8:00 AM EST Office Visit [facility] [address] [place] [phone] Theresa Landry MD [address] [place] [id number] [facility] Start: 06-20-2024 End: 06-20-2024 Admission to same day surgery center 06/20/2024 11:40 AM EST - 06/20/2024 2:00 PM EST Surgery [facility] OR [address] [place] [phone] Theresa Landry MD [address] [place] [address] [employer] Arthroscopy Shoulder [01918 (CPT )] [facility] OR Comment on above: [employer] Arthr oscopy Shoulder [23029 (CPT )] Start: 06-20-2024 End: 06-20-2024 Arthroscopy shoulder surgical capsulorrhaphy [employer] Arthrosc[employer] Shoulder Tear of left glenoid labrum, initial encounter 06/20/2024 11:40 AM EST Virtual [facility] [place] Start: 06-20-2024 Subsequent hospital visit by physician 06/20/2024 10:10 AM EST Hospital Encounter [facility] OR [address] [place] [address] Theresa Landry MD [address] [place] [id number] [facility] OR Start: 06-13-2024 End: 06-13-2024 Patient encounter procedure 06/13/2024 8:00 AM EST Office Visit [facility] [address] [place] [id number] Anat Jacome, OPTHALMIC TECH-PALM GATHERER [address] [facility], [address] [place] [phone] [facility] Start: 05-10-2024 End: 05-10-2024 Patient encounter procedure 05/10/2024 8:00 AM EDT Office Visit [facility] [address] [place] [phone] Theresa Landry MD [address] [place], [id number] Start: 03-20-2024 Covid-19 Vaccine ( season) Covid-19 Vaccine ( season) [facility] Start: 03-20-2024 Influenza vaccination [facility] Start: 01-05-2024 End: 01-05-2024 Patient encounter procedure 01/05/2024 9:00 AM EDT Office Visit [facility] [address] [place] [phone] Anat Jacome, OPTHALMIC TECH-PALM GATHERER [address] [facility], [address] [place] [address] [facility] Start: 01-01-2024 COVID-19 VACCINE (#1) COVID-19 VACCI NE (#1) [facility] Comment on above: Postponed from 04/24 (Declined at this time) Start: 01-01-2024 PNEUMOCOCCAL (1 - PCV) PNEUMOCOCCAL (1 - PCV) [facility] Comment on above: Postponed from 10/23 (Declined at this time) Start: 12-09-2023 End: 12-08-2024 MR Shoulder - left WO contrast MR shoulder left wo IV contrast Imaging Routine Sprain of left shoulder, unspecified shoulder sprain type, initial encounter Expected: 12/09/2023, Expires: 12/08/2024 [facility] Service Area Work Phone: Comment on above: Expected: 12/09/2023 , Expires: 12/08/2024 Start: 12-09-2023 End: 12-09-2023 Patient encounter procedure 12/09/2023 9:30 AM EDT Office Visit [facility] [address] [place] [phone] Anat Jacome, OPTHALMIC TECH-PALM GATHERER [address] [facility], [address] [place] [address] [facility] Start: 10-28-2023 End: 10-28-2023 Patient encounter procedure 10/28/2023 8:45 AM EDT Office Visit [facility] [address] [place] [phone] Anat Jacome, OPTHALMIC TECH-PALM GATHERER [address] [facility], [address] [place] [address] [facility] Start: 09-03-2023 [facility] Start: 03-20-2023 COVID-19 Vaccine ( season) COVID-19 Vaccine ( season) [facility] Start: 03-20-2023 Influenza vaccination [facility] Start: 12-31-2022 End: 03-02-2023 CBC W Auto Differential panel - Blood CBC + DIFF Lab Routine Encounter for medical examination to establish care Expected: 12/31/2022, Expires: 03/02/2023 [facility] Work Phone: Comment on above: Expected: 12/31/2022 , Expires: 03/02/2023 Start: 12-31-2022 End: 03-02-2023 Comprehensive metabolic 2000 panel - Serum or Plasma COMP METABOLIC PANEL Lab Routine Encounter for medical examination to establish care Expected: 12/31/2022, Expires: 03/02/2023 [facility] Work Phone: Comment on above: Expected: 12/31/2022 , Expires: 03/02/2023 Start: 12-31-2022 End: 03-02-2023 Hepatitis C virus Ab [Presence] in Serum HEP C AB IA W/CONF SCRN Lab Routine Special screening examination for viral disease Expected: 12/31/2022, Expires: 03/02/2023 [facility] Work Phone: Comment on above: Expected: 12/31/2022 , Expires: 03/02/2023 Start: 12-31-2022 End: 03-02-2023 HIV 1+2 Ab [Presence] in Serum or Plasma by Immunoassay HIV 1 2 COMBO(AG/AB),WITH REFLEX TO DIFFERENTIATION Lab Routine Screening for HIV (human immunodeficiency virus) Expected: 12/31/2022, Expires: 03/02/2023 [facility] Work Phone: Comment on above: Expected: 12/31/2022 , Expires: 03/02/2023 Start: 12-31-2022 End: 03-02-2023 Lipid 1996 panel - Serum or Plasma LIPID PANEL BASIC Lab Routine Encounter for medical examination to establish care Expected: 12/31/2022, Expires: 03/02/2023 [facility] Work Phone: Comment on above: Expected: 12/31/2022 , Expires: 03/02/2023 Start: 12-31-2022 End: 03-02-2023 Thyrotropin [Units/volume] in Serum or Plasma TSH BLD Lab Routine Fatigue, unspecified type Expected: 12/31/2022, Expires: 03/02/2023 [facility] Work Phone: Comment on above: Expected: 12/31/2022 , Expires: 03/02/2023 Start: 08-05-2022 End: 08-19-2022 Influenza virus A and B RNA and SARS-CoV-2 (COVID-19) N gene panel - Respiratory specimen by KELLY with probe detection [facility] Work Phone: Comment on above: Expected: 08/05/2022 , Expires: 08/19/2022 Start: 03-20-2022 Influenza vaccination INFLUENZA (#1) [facility] Start: 2020 HPV Vaccines (1 - 3- dose standard series) HPV Vaccines (1 - 3-dose standard series) [facility] Start: 2012 Pneumococcal Vaccine : Pediatrics and At-Risk Adult Patients (1 of 2 - PCV) Pneumococcal Vaccine: Pediatrics and At-Risk Adult Patients (1 of 2 - PCV) [facility] [facility] Start: 10-24-2011 Anxiety Screening Anxiety Screening [facility] Start: 10-24-2011 HEPATITIS C SCREENING HEPATITIS C [facility] Start: 10-24-2011 Hepatitis C screening Hepatitis C [facility] Start: 10-24-2011 HIV SCREENING HIV SCREENING [facility] Start: 2006 Varicella vaccination Varicell a Vaccines (1 of 2 - 13+ 2-dose series) [facility] Start: 2004 Urine microalbumin profile DTAP,TDAP,TD (6 - Tdap) [facility] Start: 10-24-1999 PNEUMOCOCCAL (1 - PCV) PNEUMOCOCCAL (1 - PCV) [facility] Start: 10-24-1999 Pneumococcal vaccination Pneum ococcal Vaccine (1 of 2 - PCV) [facility] Start: 10-24-1999 Pneumococcal Vaccine : Pediatrics (0 to 5 Years) and At-Risk Patients (6 to 64 Years) (1 - PCV) Pneumococcal Vaccine: Pediatrics (0 to 5 Years) and At-Risk Patients (6 to 64 Years) (1 - PCV) [facility] Start: 10-24-1999 Pneumococcal Vaccine : Pediatrics (0 to 5 Years) and At-Risk Patients (6 to 64 Years) (1 of 2 - PCV) Pneumococcal Vaccine: Pediatrics (0 to 5 Years) and At-Risk Patients (6 to 64 Years) (1 of 2 - PCV) [facility] Start: 04-04-1999 Varicella vaccination Varicell a Vaccines (1 of 2 - 2-dose childhood series) [facility] Start: 04-24-1994 COVID-19 VACCINE (#1) COVID-19 VACCI NE (#1) [facility] Start: 1993 HIV screening HIV Screening [facility] Start: 1993 Lipid panel Lipid Panel [facility] Start: 1993 Yearly Adult Physical Yearly Adult P hysical [facility] End: 10-03-2023 ECG 12 lead [facility] Service Area Work Phone: Comment on above: Every 1 hour for 2 O ccurrences starting 10/03/2023 until 10/03/2023 As needed until disc ontinued starting 10/03/2023 End: 12-31-2023 HOME SLEEP APNEA TEST (HSAT) HOME SLEEP APNEA TEST (HSAT) Procedures Routine Daytime somnolence Snoring 1 Occurrences starting 12/31/2022 until 12/31/2023 [facility] Work Phone: Comment on above: 1 Occurrences starti ng 12/31/2022 until 12/31/2023 Patient Education [facility] Work Phone: Patient referral [facility] Work Phone: US Abdomen Point of Care Ul trasound Imaging Routine Pre-op testing Ordered: 03/03/2024 [facility] Work Phone: Comment on above: Ordered: 03/03/2024 End: 03-03-2024 XR Shoulder - left 2 Views [facility] Work Phone: Comment on above: Once for 1 Occurrenc es starting 03/03/2024 until 03/03/2024 [facility] Immunizations Immunization Date Immunization Notes Care Provider Manohar arrington 08-17-2022 tetanus toxoid, redu jimbo diphtheria toxoid, and acellular pertussis vaccine, adsorbed [facility] 02-19-2000 hepatitis B vaccine, pediatric or pediatric/adolescent dosage Lay BEARDEN Work Phone: [facility] 08-22-1999 hepatitis B vaccine, pediatric or pediatric/adolescent dosage Krislyn Aberegg PA Work Phone: [facility] 04-04-1999 hepatitis B vaccine, pediatric or pediatric/adolescent dosage Krislyn Aberegg PA Work Phone: [facility] 03-07-1999 diphtheria, tetanus toxoids and acellular pertussis vaccine Krislyn Aberegg PA Work Phone: [facility] 03-07-1999 measles, mumps and rubella virus vaccine Krislyn Aberegg PA Work Phone: [facility] 03-07-1999 trivalent poliovirus vaccine, live, oral Krislyn Aberegg PA Work Phone: [facility] 04-11-1997 diphtheria, tetanus toxoids and acellular pertussis vaccine Krislyn Aberegg PA Work Phone: [facility] 04-11-1997 measles, mumps and rubella virus vaccine Krislyn Aberegg PA Work Phone: [facility] 04-11-1997 trivalent poliovirus vaccine, live, oral Krislyn Aberegg PA Work Phone: [facility] 08-14-1994 DTP-Haemophilus influenzae type b conjugate vaccine Krislyn Aberegg PA Work Phone: [facility] 03-21-1994 DTP-Haemophilus influenzae type b conjugate vaccine Krislyn Aberegg PA Work Phone: [facility] 03-21-1994 trivalent poliovirus vaccine, live, oral Krislyn Aberegg PA Work Phone: [facility] 02-07-1994 DTP-Haemophilus influenzae type b conjugate vaccine Krislyn Aberegg PA Work Phone: [facility] 02-07-1994 trivalent poliovirus vaccine, live, oral Krislyn Aberegg PA Work Phone: [facility] Payers Date Payer Category Payer Self-pay [id number] 2023 Medicaid (Managed Care) [id number]. [id number] 2023 Unknown [facility] [id number] [place]23-Present [address] [place] [address] [id number] 2022 Unknown [id number] 2019 Medicaid [facility] [facility] MEDICAID [employer] [id number] 2019-Present [id number] 2019 Medicaid [id number] 2019 Medicaid [id number] 1993 Unknown [id number] 1993 Unknown [id number] 1244 1993 Unknown [id number] 124 1993 Unknown [id number] 1243 1993 Unknown [id number] 1243 1993 Unknown [id number] 124 1993 Unknown [id number] 1244 1993 Unknown [id number] 1244 1993 Unknown [id number]. 1243 1993 Unknown [id number] [id number]. 1243 Unknown [facility] [place] [id number] Unknown [id number] Social History Date Type Detail Facility Start: 03-22-2010 End: 03-22-2025 Tobacco smoking status NHIS Current every day smoker [facility] Start: 01-24-2021 End: 10-30-2023 Cigarettes smoked current (pack per day) - Reported [facility] Start: 06-29-2018 End: 01-24-2021 Tobacco use and exposure Never used [facility] Start: 01-24-2021 End: 03-22-2025 Alcohol intake Current drinker of alcohol (finding) [facility] Start: 01-24-2021 Alcohol Comment a pint a day [facility] Start: 1995 Sex Assigned At Not on file O [facility] Start: 09-09-2020 End: 03-03-2024 Exposure to SARS-CoV-2 (event) Not sure [facility] Start: 03-22-2010 History of tobacco use Cigarette Smo ker [facility] Start: 10-09-2020 End: 07-30-2021 Alcohol intake Current non-drinker of alcohol (finding) [facility] Start: 08-08-2010 End: 12-31-2022 Tobacco Comment states smokes just over 1/2 pack per day [facility] Start: 06-29-2018 Alcohol Comment rare [place] [facility] Start: 08-17-2022 End: 09-03-2023 Tobacco smoking status NHIS Unknown if ever smoked [facility] Start: 02-05-2019 With Family [facility] Start: 1995 Sex Assigned At Male [facility] Start: 12-31-2022 Alcohol Comment 4-5 days per w [employer]- drinks vodka [facility] Start: 12-31-2022 End: 10-30-2023 Tobacco use panel [facility] Start: 06-14-2022 PHQ2 Score 0 [facility] Start: 10-13-2023 End: 03-22-2025 Tobacco use and exposure Former smokeless tobacco user [facility] Work Phone: Start: 03-22-2025 Alcohol Comment "couple times per week", "half a pint" per time [facility] Work Phone: Medical Equipment Procedure Code Equipment Code Equipment Origin al Text Equipment Identifier Dates Appendectomy, laparoscopic 45mm Standard Reload FDA Start: 04-05-2021 Appendectomy, laparoscopic 45mm Standard Reload FDA Start: 04-05-2021 Appendectomy, laparoscopic Ligation clip, synthetic polymer, non-bioabsorbable [id number] FDA Start: 04-05-2021 Appendectomy, laparoscopic 45mm Standard Reload FDA Start: 04-05-2021 Appendectomy, laparoscopic 45mm Standard Reload FDA Start: 04-05-2021 Functional Status Date Assessment Result Facility 03-22-2025 [facility] s everity rating scale screener - recent [C-SSRS] [facility] Work Phone: Clinical Notes 10-09-2020 to 03-22-2025 Guy Tomlin, - 03/22/2025 9:05 AM EDTCkatarina Tomlin, DO - 03/22/2025 9:05 AM EDTAssessment & Plan Note - Theresa Landry MD - 03/03/2024 2:02 PM EDT Note Date & Type Note Facility 03-22-2025 Physician Emergency department Note HPI Chief Complaint Patient presents with Dental Pain Pt arrived with c/o left upper tooth pain that started two nights ago. Pt states he has had two caps placed on this tooth previously. Pt currently sees [facility] in [place], [place]. Pt states last repair was early 2023. Pt denies any trouble breathing or fever. Limitations to History: None HPI: 29-year-old male presents with concern for left upper dental pain. States this began over the past 2 days. Previously had His Teeth Placed Approximately Year and a Half Ago by Dentist in [place]. Denies Any Fever, Chills, Nausea, Vomiting, Trauma. Additional History Obtained from: Significant other at the bedside. Physical Exam: VS: As documented in the triage note and EMR flowsheet from this visit were reviewed. Appearance: Alert. cooperative, in no acute distress. Skin: Intact, dry skin, no lesions, rash, petechiae or purpura. Eyes: PERRLA, EOMs intact, Conjunctiva pink with no redness or exudates. HENT: Normocephalic, atraumatic. Nares patent. Discoloration to the left posterior most tooth without evidence of periapical abscess. Neck: Supple, without meningismus. Trachea at midline. No lymphadenopathy. Psychiatric: Appropriate mood and affect. Patient History Medical History[1] Surgical History[2] Family History[3] Social History[4] Physical Exam ED Triage Vitals [03/22/25 0859] Temperature Heart Rate Respirations BP 36.6 C (97.8 F) 96 16 (!) 140/91 Pulse Ox Temp Source Heart Rate Source Patient Position 99 % Temporal Monitor Sitting BP Location FiO2 (%) Left arm -- Physical Exam ED Course & MDM Diagnoses as of 03/22/25 0905 Pain, dental No data recorded Medical Decision Making Medical Decision Making: Patient appears well and nontoxic. No evidence of abscess. Patient will be treated with intramuscular Toradol. Will be given oral ketorolac and penicillin VK for home. Advised on follow-up with dentist. Stable at time of discharge. Differential Diagnoses Considered: Toe pain, dental abscess, dental carry Escalation of Care: Appropriate for discharge and follow-up with dentist. Procedure Procedures [1] Past Medical History: Diagnosis Date Anxiety [2] No past surgical history on file. [3] No family history on file. [4] Social History Tobacco Use Smoking status: Every Day Current packs/day: 1.00 Average packs/day: 1 pack/day for 15.0 years (15.0 ttl pk-yrs) Types: Cigarettes Start date: 03/22/2010 Smokeless tobacco: Former Vaping Use Vaping status: Never Used Substance Use Topics Alcohol use: Yes Comment: "couple times per week", "half a pint" per time Drug use: Yes Frequency: 4.0 times per week Types: Marijuana Guy Tomlin DO 03/22/25906 T [facility] Work Phone: 03-22-2025 Emergency department Note HPI Chief Complaint Patient presents with Dental Pain Pt arrived with c/o left upper tooth pain that started two nights ago. Pt states he has had two caps placed on this tooth previously. Pt currently sees [facility] in [place], [place]. Pt states last repair was early 2023. Pt denies any trouble breathing or fever. Limitations to History: None HPI: 29-year-old male presents with concern for left upper dental pain. States this began over the past 2 days. Previously had His Teeth Placed Approximately Year and a Half Ago by Dentist in [facility]. Denies Any Fever, Chills, Nausea, Vomiting, Trauma. Additional History Obtained from: Significant other at the bedside. Physical Exam: VS: As documented in the triage note and EMR flowsheet from this visit were reviewed. Appearance: Alert. cooperative, in no acute distress. Skin: Intact, dry skin, no lesions, rash, petechiae or purpura. Eyes: PERRLA, EOMs intact, Conjunctiva pink with no redness or exudates. HENT: Normocephalic, atraumatic. Nares patent. Discoloration to the left posterior most tooth without evidence of periapical abscess. Neck: Supple, without meningismus. Trachea at midline. No lymphadenopathy. Psychiatric: Appropriate mood and affect. Patient History Medical History[1] Surgical History[2] Family History[3] Social History[4] Physical Exam ED Triage Vitals [03/22/25 0859] Temperature Heart Rate Respirations BP 36.6 C (97.8 F) 96 16 (!) 140/91 Pulse Ox Temp Source Heart Rate Source Patient Position 99 % Temporal Monitor Sitting BP Location FiO2 (%) Left arm -- Physical Exam ED Course & MDM Diagnoses as of 03/22/25 0905 Pain, dental No data recorded Medical Decision Making Medical Decision Making: Patient appears well and nontoxic. No evidence of abscess. Patient will be treated with intramuscular Toradol. Will be given oral ketorolac and penicillin VK for home. Advised on follow-up with dentist. Stable at time of discharge. Differential Diagnoses Considered: Toe pain, dental abscess, dental carry Escalation of Care: Appropriate for discharge and follow-up with dentist. Procedure Procedures [1] Past Medical History: Diagnosis Date Anxiety [2] No past surgical history on file. [3] No family history on file. [4] Social History Tobacco Use Smoking status: Every Day Current packs/day: 1.00 Average packs/day: 1 pack/day for 15.0 years (15.0 ttl pk-yrs) Types: Cigarettes Start date: 03/22/2010 Smokeless tobacco: Former Vaping Use Vaping status: Never Used Substance Use Topics Alcohol use: Yes Comment: "couple times per week", "half a pint" per time Drug use: Yes Frequency: 4.0 times per week Types: Marijuana Guy Tomlin DO 03/22/25 0907 documented in this encounter [facility] Work Phone: 03-03-2024 Evaluation + Plan note Associated Problem(s): Labral tear of shoulder, left, initial encounter Assessment: Status post anterior dislocation of the left shoulder with an MRI defined Bankart lesion. The patient continues to have instability. He comes in today to discuss treatment options. 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 Plan: I discussed the risks and benefits of labral reconstruction with the patient. He has had a busy time in his business cycle. He states he could not stop for surgery at this point. He does attest that he is having minimal instability with his renovation activities. He is avoiding overhead activity. He would like to proceed with surgery and wants to schedule for 06/06/2024 when his business is naturally diminished because of the weather. I went through the risks and benefits of the proposed procedure including the risk of waiting. He understands this he is willing to go forward with the planned surgery but continues to desire a delay. He will follow-up in April for his preoperative testing. He will continue to do the home exercise program. He understands that if he has instability episodes and wants to accelerate his surgery he just has to call the office and we will try to do that for him. He will avoid activities that might aggravate. I showed him the provocative position of abduction and external rotation. He understands this. 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 The patient continues to have instability. He comes in today to discuss treatment options. 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 Plan: I discussed the risks and benefits of labral reconstruction with the patient. He has had a busy time in his business cycle. He states he could not stop for surgery at this point. He does attest that he is having minimal instability with his renovation activities. He is avoiding overhead activity. He would like to proceed with surgery and wants to schedule for 06/06/2024 when his business is naturally diminished because of the weather. I went through the risks and benefits of the proposed procedure including the risk of waiting. He understands this he is willing to go forward with the planned surgery but continues to desire a delay. He will follow-up in April for his preoperative testing. He will continue to do the home exercise program. He understands that if he has instability episodes and wants to accelerate his surgery he just has to call the office and we will try to do that for him. He will avoid activities that might aggravate. I showed him the provocative position of abduction and external rotation. He understands this. 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 The patient continues to have instability. He comes in today to discuss treatment options. 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 Plan: I discussed the risks and benefits of labral reconstruction with the patient. He has had a busy time in his business cycle. He states he could not stop for surgery at this point. He does attest that he is having minimal instability with his renovation activities. He is avoiding overhead activity. He would like to proceed with surgery and wants to schedule for 06/06/2024 when his business is naturally diminished because of the weather. I went through the risks and benefits of the proposed procedure including the risk of waiting. He understands this he is willing to go forward with the planned surgery but continues to desire a delay. He will follow-up in April for his preoperative testing. He will continue to do the home exercise program. He understands that if he has instability episodes and wants to accelerate his surgery he just has to call the office and we will try to do that for him. He will avoid activities that might aggravate. I showed him the provocative position of abduction and external rotation. He understands this. Subjective Patient ID: Indira Paiz is a 28 y.o. male. Chief Complaint: Pain of the Left Shoulder Last Surgery: No surgery found Last Surgery Date: No surgery found HPI 28-year-old male who has an unstable left shoulder and an MRI showing a Bankart. 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 He asked if we could do the surgery in mid May. I explained the risks and benefits of the proposed procedure and the risk of delay he understands this and he is willing to proceed with Bankart reconstruction in mid May. OBJECTIVE: ORTHO EXAM Left shoulder: Inspection: Skin healthy to gross inspection No ecchymosis, no edema, no gross atrophy Palpation: Acromioclavicular joint no tenderness Biceps tendon/ groove animal tenderness Anterior Acromial Bursal Area minimal tenderness Cervical spine no tenderness ROM: Forward Flexion 130 degrees active External Rotation 60 degrees at 90 degrees abduction Internal Rotation 60 degrees at 90 degrees abduction With abduction to 90 and external rotation past 45 he starts to get apprehension. Strength: 4+/5 Supraspinatus isolation- resisted elevation 5 -/5 Infraspinatus isolation- ER 5/5 Subscapularis- IR Negative lift off test Negative Spurling s test Positive Neer and Hawking s test Negative Speed's test Negative Inferior Sulcus Positive anterior Apprehension Full unrestricted motion at Elbow/Wrist/Hand Neurovascular exam normal distally IMAGE RESULTS: Point of Care Ultrasound These images are not reportable by radiology and will not be interpreted by Radiologists. ULTRASOUND Procedures Orders Placed This Encounter Point of Care Ultrasound documented in this encounter [facility] Work Phone: 12-10-2023 Evaluation + Plan note Associated Problem(s): Sprain of shoulder, left We discussed symptom control with prescription naproxen twice daily with food, OTC Tylenol per package directions, ice, activity modification. Requesting MRI due to continued symptoms with multiple conservative measures attempted. Plan to follow-up here after MRI for result review and treatment plan. Patient and family in agreement with plan of care. Continue 10 pound lifting restriction with the left arm as tolerated This note was generated using [employer] software. It may contain errors in wording, punctuation or spelling. [facility] Work Phone: 12-10-2023 Miscellaneous Notes Associated Problem(s): Sprain of shoulder, left We discussed symptom control with prescription naproxen twice daily with food, OTC Tylenol per package directions, ice, activity modification. Requesting MRI due to continued symptoms with multiple conservative measures attempted. Plan to follow-up here after MRI for result review and treatment plan. Patient and family in agreement with plan of care. Continue 10 pound lifting restriction with the left arm as tolerated This note was generated using [employer] software. It may contain errors in wording, punctuation or spelling. documented in this encounter [facility] Work Phone: 12-09-2023 History of Present illness Narrative Subjective Patient ID: Indira Paiz is a 28 y.o. male. Chief Complaint Patient presents with Left Shoulder - Follow-up, Pain Patient had cortisone in 10/28/2023, He states that he did get some relief for a little bit. He still has pain and lack of ROM. Left Shoulder Hilario is a pleasant 27-year-old gentleman presenting for follow-up visit L shoulder pain that occurred on 10/12/2023 when patient attempted to do a back flip off a trampoline. Aggravating symptoms include pulling motion, lifting a bucket pushing trunk down on vehicle, overhead motion and work overhead. Patient rotates Tylenol, Aleve and/or Advil on as needed basis with some symptom improvement. Patient did attend PT eval visit, states was given home exercises which he does most days of the week. Patient did recently have a popping episode with trying to pull his trunk down on his vehicle and then symptoms lasted the entire day. 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 Denies any numbness tingling. Patient is right-hand dominant. DOI 10/12/2023. To date patient has attempted OTC medications, prescription prednisone and Vistaril from ED visit, cortisone injection, PT and home exercises with some improvements but continues with troublesome symptoms with reaching, lifting and overhead work. Denies any prior injuries. Review of Systems Constitutional: Negative. HENT: Negative. Respiratory: Negative. Cardiovascular: Negative. Endocrine: Negative. Musculoskeletal: Positive for arthralgias. Skin: Negative. Neurological: Negative. Hematological: Negative. Psychiatric/Behavioral: Negative. Objective Left Shoulder Exam Tenderness The patient is experiencing tenderness in the biceps tendon and acromioclavicular joint. Range of Motion Active abduction: 140 External rotation: 40 Forward flexion: 160 Tests Cross arm: positive Sulcus: present Other Erythema: absent Sensation: normal Pulse: present Comments: Positive Neer's test, positive Yergason. Positive aggravation of symptoms with rotator cuff testing continues. Full range of motion of neck in all directions with no shoulder pain aggravation. Full ROM of distal joints with no sx aggravation, distal motor and sensory intact, cap refill at 2 seconds. Image Results: XR shoulder left 2+ views Narrative: STUDY: Shoulder Radiographs; 10/13/2023 5:57 AM. INDICATION: Fall with pain. COMPARISON: None Available. ACCESSION NUMBER(S): [id number] ORDERING CLINICIAN: GUY TOMLIN TECHNIQUE: Five views of the left shoulder. FINDINGS: No humeral fracture or dislocation. No clavicular fracture or dislocation identified. No fracture of the scapula is identified. No adjacent rib fracture. The visualized portions of the adjacent lung is clear. Impression: No findings of an acute process. Signed by Reggie Barnes MD Assessment/Plan Problem List Items Addressed This Visit ICD-10-CM Sprain of shoulder, left - Primary S43.402A We discussed symptom control with prescription naproxen twice daily with food, OTC Tylenol per package directions, ice, activity modification. Requesting MRI due to continued symptoms with multiple conservative measures attempted. Plan to follow-up here after MRI for result review and treatment plan. Patient and family in agreement with plan of care. Continue 10 pound lifting restriction with the left arm as tolerated This note was generated using [employer] software. It may contain errors in wording, punctuation or spelling. Relevant Orders MR shoulder left wo IV contrast documented in this encounter [facility] Work Phone: 10-28-2023 Evaluation + Plan note Associated Problem(s): Sprain of shoulder, left We discussed symptom control with prescription naproxen twice daily with food, OTC Tylenol per package directions, ice, activity modification. Cortisone injection was administered today, patient tolerated well with positive lidocaine suppression. Formal PT x 6 weeks for strengthening and range of motion. Will plan on seeing back in 6 weeks for reevaluation. If symptoms continue or worsen, we will evaluate for advanced imaging. Patient and family in agreement with plan of care. Recommended 10 pound lifting restriction with the left arm and advance as tolerated once working with PT. This note was generated using [employer] software. It may contain errors in wording, punctuation or spelling. [facility] Work Phone: 10-28-2023 Miscellaneous Notes Associated Problem(s): Sprain of shoulder, left We discussed symptom control with prescription naproxen twice daily with food, OTC Tylenol per package directions, ice, activity modification. Cortisone injection was administered today, patient tolerated well with positive lidocaine suppression. Formal PT x 6 weeks for strengthening and range of motion. Will plan on seeing back in 6 weeks for reevaluation. If symptoms continue or worsen, we will evaluate for advanced imaging. Patient and family in agreement with plan of care. Recommended 10 pound lifting restriction with the left arm and advance as tolerated once working with PT. This note was generated using [employer] software. It may contain errors in wording, punctuation or spelling. documented in this encounter [facility] Work Phone: 10-28-2023 History of Present illness Narrative Associated Order(s): L Inj/Asp: L subacromial bursa Subjective Patient ID: Indira Paiz is a 28 y.o. male. Chief Complaint Patient presents with Left Shoulder - Follow-up, Pain Patient states his shoulder is better, but still has some pain and "popping" when he raises his arm straight above his head. He states the pain does at times radiate down his arm toward his elbow. He states it is still painful to lay on his left shoulder to try sleep. Left Shoulder Hilario is a pleasant 27-year-old gentleman presenting for follow-up visit L shoulder pain that occurred on 10/12/2023 when patient attempted to do a back flip off a trampoline while intoxicated, landed on partially outstretched arm jamming up towards shoulder area. Patient currently taking naproxen on as needed basis with good symptom control. Aggravating symptoms include pulling motion, pushing trunk down on vehicle. Reports approximately 50% improvement after taking prednisone burst from last visit. Patient describes a "clunking" sensation with reaching backwards. When this occurs, he is sore for a few hours after the events. 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 Denies any numbness tingling. Patient is right-hand dominant. Denies any prior injuries. Review of Systems Constitutional: Negative. HENT: Negative. Respiratory: Negative. Cardiovascular: Negative. Endocrine: Negative. Musculoskeletal: Positive for arthralgias. Skin: Negative. Neurological: Negative. Hematological: Negative. Psychiatric/Behavioral: Negative. Objective Left Shoulder Exam Tenderness The patient is experiencing tenderness in the biceps tendon and acromioclavicular joint. Range of Motion Active abduction: 140 External rotation: 30 Forward flexion: 150 Tests Cross arm: positive Sulcus: present Other Erythema: absent Sensation: normal Pulse: present Comments: Positive Neer's test, positive Yergason. Positive aggravation of symptoms with rotator cuff testing during today's visit. Full range of motion of neck in all directions with no shoulder pain aggravation. Full ROM of distal joints with no sx aggravation, distal motor and sensory intact, cap refill at 2 seconds. Image Results: XR shoulder left 2+ views Narrative: STUDY: Shoulder Radiographs; 10/13/2023 5:57 AM. INDICATION: Fall with pain. COMPARISON: None Available. ACCESSION NUMBER(S): [id number] ORDERING CLINICIAN: GUY TOMLIN TECHNIQUE: Five views of the left shoulder. FINDINGS: No humeral fracture or dislocation. No clavicular fracture or dislocation identified. No fracture of the scapula is identified. No adjacent rib fracture. The visualized portions of the adjacent lung is clear. Impression: No findings of an acute process. Signed by Reggie Barnes MD Patient ID: Indira Paiz is a 28 y.o. male. L Inj/Asp: L subacromial bursa on 10/28/2023 9:38 AM Indications: pain and joint swelling Details: 22 G needle, posterior approach Medications: 40 mg triamcinolone acetonide 40 mg/mL Outcome: tolerated well, no immediate complications We discussed risk and benefits of cortisone injection, patient wishes to proceed via verbal consent. Skin was prepped with Betadine, vapo coolant spray and alcohol. Administered injection of 40 mg Kenalog, 3 cc 1% lidocaine and 3 cc of 0.25% bupivacaine. Patient tolerated injection well with lidocaine suppression. No active bleeding, bandage applied to site. Procedure, treatment alternatives, risks and benefits explained, specific risks discussed. Consent was given by the patient. Immediately prior to procedure a time out was called to verify the correct patient, procedure, equipment, technical support agent and site/side marked as required. Patient was prepped and draped in the usual sterile fashion. Assessment/Plan Encounter Diagnoses: Problem List Items Addressed This Visit ICD-10-CM Sprain of shoulder, left - Primary S43.402A We discussed symptom control with prescription naproxen twice daily with food, OTC Tylenol per package directions, ice, activity modification. Cortisone injection was administered today, patient tolerated well with positive lidocaine suppression. Formal PT x 6 weeks for strengthening and range of motion. Will plan on seeing back in 6 weeks for reevaluation. If symptoms continue or worsen, we will evaluate for advanced imaging. Patient and family in agreement with plan of care. Recommended 10 pound lifting restriction with the left arm and advance as tolerated once working with PT. This note was generated using Dragon software. It may contain errors in wording, punctuation or spelling. Other Visit Diagnoses Codes Acute pain of left shoulder M25.512 Relevant Orders Referral to Physical Therapy documented in this encounter [facility] Work Phone: 10-14-2023 Evaluation + Plan note Associated Problem(s): Sprain of shoulder, left We discussed symptom control with prednisone burst x 5 days, OTC Tylenol per package directions, may resume naproxen dosing twice daily after completing prednisone. Encouraged to take as directed for 3 days with food, then decrease to as needed basis. Rest, ice, elevate and sling with bolster as needed with weight bearing activity, off with rest and sleep. Encouraged to come out of the sling every 1-2 hours with gentle range of motion of the shoulder. Work note provided for no weightbearing of the left arm. Plan will be to follow-up here in approximately 2 weeks, sooner for changes or concerns. Patient in agreement with plan of care. This note was generated using [employer] software. It may contain errors in wording, punctuation or spelling. [facility] Work Phone: 10-14-2023 Miscellaneous Notes Associated Problem(s): Sprain of shoulder, left We discussed symptom control with prednisone burst x 5 days, OTC Tylenol per package directions, may resume naproxen dosing twice daily after completing prednisone. Encouraged to take as directed for 3 days with food, then decrease to as needed basis. Rest, ice, elevate and sling with bolster as needed with weight bearing activity, off with rest and sleep. Encouraged to come out of the sling every 1-2 hours with gentle range of motion of the shoulder. Work note provided for no weightbearing of the left arm. Plan will be to follow-up here in approximately 2 weeks, sooner for changes or concerns. Patient in agreement with plan of care. This note was generated using [employer] software. It may contain errors in wording, punctuation or spelling. documented in this encounter [facility] Work Phone: 10-14-2023 History of Present illness Narrative Subjective Patient ID: Indira Paiz is a 27 y.o. male. Chief Complaint Patient presents with Left Shoulder - Pain Lt shoulder fell off of trampoline 10-12-23 HPI Hilario is a pleasant 27-year-old gentleman presenting for NPV L shoulder pain that occurred on 10/12/2023 when patient attempted to do a back flip off a trampoline while intoxicated, landed on partially outstretched arm jamming up towards shoulder area. Patient was seen in the ED and advised to follow-up here in orthopedics. Patient is taking naproxen and Tylenol with a little bit of relief. No sling attempted. Patient did ice 3 times since the injury with no improvements. Denies any prior injuries. Symptoms are aggravated with dangling, lifting and moving it. Only improvement is not moving or using his arm. Patient is right-hand dominant. Review of Systems Constitutional: Negative. HENT: Negative. Respiratory: Negative. Cardiovascular: Negative. Endocrine: Negative. Musculoskeletal: Positive for arthralgias. Skin: Negative. Neurological: Negative. Hematological: Negative. Psychiatric/Behavioral: Negative. Objective Left Shoulder Exam Tenderness The patient is experiencing tenderness in the biceps tendon and acromioclavicular joint. Range of Motion Active abduction: 70 Forward flexion: 90 Tests Cross arm: positive Other Sensation: normal Pulse: present Comments: Small amount of swelling noticed to the anterior shoulder region, positive painful to touch and movement. Patient is not tender over the clavicle or anterior chest wall, no pain over the scapula, upper trap or posterior shoulder region. Full range of motion of neck in all directions with no shoulder pain aggravation. Patient with difficulty securing upper arm against body due to increased pain. Full ROM of distal joints with no sx aggravation, distal motor and sensory intact, cap refill at 2 seconds. Image Results: XR shoulder left 2+ views Narrative: STUDY: Shoulder Radiographs; 10/13/2023 5:57 AM. INDICATION: Fall with pain. COMPARISON: None Available. ACCESSION NUMBER(S): [id number] ORDERING CLINICIAN: GUY TOMLIN TECHNIQUE: Five views of the left shoulder. FINDINGS: No humeral fracture or dislocation. No clavicular fracture or dislocation identified. No fracture of the scapula is identified. No adjacent rib fracture. The visualized portions of the adjacent lung is clear. Impression: No findings of an acute process. Signed by Reggie Barnes MD Assessment/Plan Encounter Diagnoses: Problem List Items Addressed This Visit ICD-10-CM Sprain of shoulder, left - Primary S43.402A We discussed symptom control with prednisone burst x 5 days, OTC Tylenol per package directions, may resume naproxen dosing twice daily after completing prednisone. Encouraged to take as directed for 3 days with food, then decrease to as needed basis. Rest, ice, elevate and sling with bolster as needed with weight bearing activity, off with rest and sleep. Encouraged to come out of the sling every 1-2 hours with gentle range of motion of the shoulder. Work note provided for no weightbearing of the left arm. Plan will be to follow-up here in approximately 2 weeks, sooner for changes or concerns. Patient in agreement with plan of care. This note was generated using [employer] software. It may contain errors in wording, punctuation or spelling. Relevant Medications predniSONE (Deltasone) 20 mg tablet Other Relevant Orders Follow Up In Orthopaedic Surgery documented in this encounter [facility] Work Phone: 10-13-2023 Emergency department Note Medical Decision Making X-rays of the left shoulder were negative for acute abnormality. Went to talk to the patient about his x-ray results and he indicates to me that he has difficulty with abduction of the left shoulder which is concerning for possible rotator cuff injury. I did have a discussion with patient concerning this possibility offered him a sling which she wanted. I then provided him a prescription for Naprosyn referral to see Dr. Landry orthopedic surgeon. The patient apparently then left before he could get the sling applied to his arm. Emergency Medicine Transition of Care Note. I received Indira Paiz in signout from Dr. Tomlin. Please see the previous ED provider note for all HPI, PE and MDM up to the time of signout at 0700. This is in addition to the primary record. In brief Indira Paiz is an 27 y.o. male presenting for Chief Complaint Patient presents with Fall Pt stated he fell off of the trampoline yesterday. Pt is c/o left shoulder pain. Pt also injured his left thumb, and lip. At the time of signout we were awaiting: X-ray results of the left shoulder. Final diagnoses: [S46.009A] Rotator cuff injury, initial encounter Procedure Procedures DO Fortunato Cullen DO 10/13/23801 documented in this encounter [facility] Work Phone: 10-13-2023 Physician Emergency department Note Medical Decision Making X-rays of the left shoulder were negative for acute abnormality. Went to talk to the patient about his x-ray results and he indicates to me that he has difficulty with abduction of the left shoulder which is concerning for possible rotator cuff injury. I did have a discussion with patient concerning this possibility offered him a sling which she wanted. I then provided him a prescription for Naprosyn referral to see Dr. Landry orthopedic surgeon. The patient apparently then left before he could get the sling applied to his arm. Emergency Medicine Transition of Care Note. I received Indira Paiz in signout from Dr. Tomlin. Please see the previous ED provider note for all HPI, PE and MDM up to the time of signout at 0700. This is in addition to the primary record. In brief Indira Paiz is an 27 y.o. male presenting for Chief Complaint Patient presents with Fall Pt stated he fell off of the trampoline yesterday. Pt is c/o left shoulder pain. Pt also injured his left thumb, and lip. At the time of signout we were awaiting: X-ray results of the left shoulder. Final diagnoses: [S46.009A] Rotator cuff injury, initial encounter Procedure Procedures DO Fortunato Cullen DO 10/13/23801 [facility] Work Phone: 09-03-2023 Discharge summary Note Date/Time September 03, 2023 4:17pm [facility] Medical Records Department [address] [place] [address] Emergency Department Summary 09/03/23 MR#: [id number] Acct: [id number] Name: INDIRA PAIZ Rep #:[id number] : 1995 27 From: Dong Whitaker MD PCP: Care Physician,No Primary Status :REG ER Location: ED HPI History of Present Illness Chief Complaint: Substance Abuse Informant: patient Associated Symptoms Associated Symptoms: Negative for vomiting*, diarrhea*, fever* or change in mental status Narrative Narrative: 27-year-old male history of alcohol abuse for last 4 years drinks about a pint of either vodka or whiskey a day. Just went through detox a month ago near [facility]. He is currently staying in a male snf house cold pathway which is associated with [facility]. He was told to come to the ER today. He denies any complaints. He denies any nausea or vomiting. Patient is not looking for inpatient detox. Prior similar symptoms: Yes Recent Illness/Hospitalization: Yes PFSH PFSH Home Medications NK 04/05/21 [History Last Taken Unknown] Allergy/AdvReac Type Severity Reaction Status Date / Time sulfamethoxazole Allergy Other Verified 09/03/23 15:41 [From Bactrim] trimethoprim [From Bactrim] Allergy Other Verified 09/03/23 15:41 Surgical History History of appendectomy Social History Smoking Status: Current every day smoker tobacco type: cigarettes ROS ROS ED ROS Narrative Denies recent illness. Review of Systems ROS Unobtainable: Denies due to encephalopathy Constitutional Constitutional ED: Denies chills or fever(s) Eyes Eyes: Denies blurry vision ENT ENT ED: Denies ear pain Cardiovascular Cardiovascular: Denies chest pain Respiratory/Chest Respiratory/Chest: Denies cough Gastrointestinal Gastrointestinal: Denies abdominal pain, diarrhea, nausea or vomiting Genitourinary Genitourinary ED: Denies dysuria Musculoskeletal Musculoskeletal: Denies arthralgias Integumentary Denies abscess Neurologic Neurologic: Denies headache(s) Psychiatric Psychiatric: Denies anxiety Endocrine Endocrinology: Denies cold intolerance Hematologic/Lymphatic Hematologic/Lymphatic: Denies easy bleeding, easy bruising or lymphadenopathy Allergic/Immunologic Allergic/Immunologic ED: Denies mouth swelling, tongue swelling or urticaria EXAM Physical Exam Narrative Exam Narrative: Well-appearing 18-year-old male vital signs stable afebrile. He does not look septic guys he is in no distress. He was sitting in a chair when I walked in the room. H EENT exam unremarkable. Moist membranes. Neck nontender no lymphadenopathy. Lungs clear to auscultation bilaterally. Heart regular rhythmrate about 100 no murmur. Chest wall nontender. Abdomen soft nontender. Moving all 4 extremities. Nontender no edema. Back nontender. Neurologically is awake and alert with no focal motor deficits. Answering questions and following commands. Const Vital Signs: 09/03/23 15:41 Temperature 97.8 F Temperature Source Temporal Pulse Rate 113 H Respiratory Rate 16 Blood Pressure 154/100 H Blood Pressure Mean 118 Pulse Ox 100 Oxygen Delivery Method Room Air Positive well nourished and well developed; Negative for obese, cachectic, contractures or unkempt General Appearance ED: well developed and NAD; Negative for unkempt, cachectic, contractures or pallor Nutritional Appearance: Negative for cachectic or obese HEENT Reports moist mucous membranes; Denies dry mucous membranes atraumatic; Negative for trauma or tenderness Mouth ED: No dry mucous membranes Mouth: No dry mucous membranes Eyes PERRL and EOMs intact bilaterally General Eye ED: Negative for pale conjunctiva or scleral icterus Neck no lymphadenopathy, supple and no JVD Thyroid: Negative for tender Lymph Lymphatic: no lymphadenopathy noted; Negative for lymphadenopathy Chest Wall inspection of chest normal and palpation of chest normal Chest: Negative for other Resp normal respiratory effort and clear to auscultation bilaterally Effort and Inspection: Negative for retractions Auscultation: Negative for rales, rhonchi or wheezes Cardio regular rate, regular rhythm, S1 normal heart sound, S2 normal heart sound and no murmurs Rate: Negative for bradycardia or tachycardic Rhythm: Negative for abnormal rhythm Bruits: Negative for other GI soft to palpation, non-tender, non-distended and no masses Inspection: Negative for abdominal distention Palpation: Negative for tender or guarding Back/Spine no CVA tenderness General Back: Negative for CVA tenderness Cervical Spine: Negative for cervical spine tenderness Thoracic Spine / Upper Back: Negative for thoracic spinal tenderness Lumbar Spine / Lower Back: Negative for lumbar spinal tenderness Coccyx: Negative for swelling Extremity General Extremety ED: Negative for edema or tenderness General Extremity: Negative for edema Neuro oriented x3 and CN's II-XII intact bilaterally Sensorium / Orientation: alert, oriented to person, oriented to place and oriented to time; Negative for confused, lethargic or stuporous Speech: speech normal Motor Exam: strength 5/5 throughout Psych mental status grossly normal and thought process normal Appearance: Negative for unkempt Attitude: No belligerent, No agitated and No aggressive Mood & Affect: Negative for depressed, anxious or tearful Skin General Skin Exam: Negative for jaundice or pallor Lesions: no lesions Rashes: no rashes Trauma: Negative for abrasion or laceration MDM MDM MDM Narrative Medical decision making narrative: 27-year-old male history of alcohol abuse stated snf house. I believe he isjust getting medical clearance because he does not want inpatient admission for detox and just had that a month ago. Her nurse spoke to the patient's snf house. They sent him in for detox. [facility] not want inpatient detox. He will do this at home. If he stays sober for 3 days able taking back at the [facility]. I again went and saw the patient he is stable. Offered him admission but he defers. Discharge Plan Triage Chief Complaint: Substance Abuse ED Provider: Dong Whitaker Dx/Rx/DC Orders Clinical Impression: Encounter for medical clearance for patient hold, History of alcohol abuse Instructions: ED Alcohol Abuse Prescriptions: No Action NK Primary Care Provider: Care Physician,No Primary Referrals: Care Physician,No Primary [Primary Care Provider] - Activity Restrictions/Additional Instructions: Follow-up with [facility] for outpatient alcohol abuse counseling. Return if you are feeling worse. Disposition Disposition: Home, Self Care What to do if you have Problems For any increased pain, shortness of breath, bleeding, nausea or vomiting, chestpain, or any unexpected problems, contact your Primary Care Provider. Call [facility] ([phone]) or report to the closest Emergency Room. Call 911 if necessary. 09/03/23 1632 <Electronically signed by Dong Whitaker MD> Cosigner Signature (if applicable): CC: No Primary Care Physician ~ Signed [facility] Work Phone: 1(191) 689-973007-13-2023 NoteHNO ID: [id number] Author: Jose Juan Haney Service: ? Author Type: ? Type: Progress Notes Filed: 01/29/2023 12:49 PM Note Text: Sleep Study Check-In Documentation Date: January 29, 2023 Name: Indira Paiz Comments: HST was returned in working order with all sleep questionnaires [facility] History of Present illness Narrative* Jose Juan Haney - 01/29/2023 12:48 PM EDT Sleep Study Check-In Documentation Date: January 29, 2023 Name: Indira Paiz Comments: HST was returned in working order with all sleep questionnaires Jose Juan Haney * Sepideh Amaya - 01/23/2023 2:50 PM EDT [facility]# [id number] , date shipped out 01/26/23 Tracking mailout: [id number] Tracking return: [id number] * Olivier Chamberlain III, PhD - 01/05/2023 9:59 AM EDT January 05, 2023 Standing PSG Orders signed in the last 90 days None Future PSG Orders signed in the last 90 days Ordered Auth. provider HOME SLEEP APNEA TEST (HSAT) [[id number]] 12/31/22 Ernestina Méndez APRN.[employer] Assoc. diagnoses: Daytime somnolence [R40.0], Snoring [R06.83] Q: Indications: A: Obstructive sleep apnea Q: STOP-BANG conditions - Select All That Apply: A: GENDER = male A2: BMI > 35 kg/m2 A3: SNORINGthat is loud or disruptive A4: TIREDNESS, fatigue or sleepiness during the day A5: OBSERVED sleep apnea Q: Current use of supplemental oxygen during sleep period?: A: No All Prior Sleep Studies (past 365 days) Some values may be hidden. Unless noted otherwise, only the newest values recorded on each date aredisplayed. Sleep Studies HOME SLEEP APNEA TEST (HSAT) Future Expected: Expires: 12/31/23 BMI Readings from Last 2 Encounters: 12/31/22 : 36.94 kg/m 08/05/22 : 35.79 kg/m PAST MEDICAL HISTORY Diagnosis Date Chicken pox History of multiple concussions MRSA infection Shingles The medical record was reviewed to determine if the proposed sleep study conforms to the AASM Practice Parameters for the Indications for Polysomnography and Related Procedures, or if the sleep studyis indicated for other reasons. Indications for study: FARHAT suspected without comorbid medical or sleep disorders Sleep study to be performed: Home Sleep Apnea Test (HSAT) Special instructions: None-follow laboratory protocol [facility] Staff Note: I have read the above protocol, edited as needed, and agree to the plan. Olivier Chamberlain III, PhD 3:55 PM, 01/05/2023 * Anastacia Arellano - 01/02/2023 8:31 AM EDT January 02, 2023 An order has been received for Home Sleep Apnea Test (HSAT) from mayra Sorensen. [facility] Staff. Visit prep complete. Comments :No The sleep study is scheduled for 01/27. Insurance: [facility] / Plan: [facility] MEDICAID / Product Type: Medicaid / Payer/Plan Subscr Sex Relation Sub. Ins. ID Effective Group Num 1. GUERO CABRERA* INDIRA PAIZ 1995 Male Self [id number] 11/19/22 [address] Manpreetguerrero Arellano documented in this encounterDunlap [facility]07-07-2023 NoteHNO ID: [id number] Author: Sepideh Amaya Service: ? Author Type: ? Type: Progress Notes Filed: 01/29/2023 12:49 PM Note Text: Nomad# [id number] , date shipped out 01/26/23 Tracking mailout: [id number] Tracking return: [id number]07-06-2023 Miscellaneous Notes* Telephone Encounter - Pilo Santoyo Ma - 01/22/2023 2:17 PM EDT Patient notified via siXist. * Telephone Encounter - Cari Matthews LPN - 01/21/2023 4:47 PM EDT Patient telephoned on both numbers, no VM setup. Please try back later. Cari Matthews LPN * Telephone Encounter - Cari Matthews LPN - 01/21/2023 4:46 PM EDT ----- Message from Ernestina Méndez APRN.CNP sent at 01/21/2023 11:03 AM EDT ----- A1c in normal range. Ernestina Méndez APRN.PALM GATHERER documented in this encounterDunlap Memorial Hospital06-19-2023 NoteHNO ID: [id number] Author: Olivier Chamberlain III, PhD Service: ? Author Type: Physician Type: Progress Notes Filed: 01/29/2023 12:49 PM Note Text: January 05, 2023 Standing PSG Orders signed in the last 90 days None Future PSG Orders signed in the last 90 days Ordered Auth. provider HOME SLEEP APNEA TEST (HSAT) [[id number]] 12/31/22 Ernestina Méndez APRN.PALM GATHERER Assoc. diagnoses: Daytime somnolence [R40.0], Snoring [R06.83] Q: Indications: A: Obstructive sleep apnea Q: STOP-BANG conditions - Select All That Apply: A: GENDER = male A2: BMI > 35 kg/m2 A3: SNORING that is loud or disruptive A4: TIREDNESS, fatigue or sleepiness during the day A5: OBSERVED sleep apnea Q: Current use of supplemental oxygen during sleep period?: A: No All Prior Sleep Studies (past 365 days) Some values may be hidden. Unless noted otherwise, only the newest values recorded on each date are displayed. Sleep Studies HOME SLEEP APNEA TEST (HSAT) Future Expected: Expires: 12/31/23 BMI Readings from Last 2 Encounters: 12/31/22 : 36.94 kg/m? 08/05/22 : 35.79 kg/m? PAST MEDICAL HISTORY Diagnosis Date Chicken pox History of multiple concussions MRSA infection Shingles The medical record was reviewed to determine if the proposed sleep study conforms to the AASM Practice Parameters for the Indications for Polysomnography and Related Procedures, or if the sleep study is indicated for other reasons. Indications for study: FARHAT suspected without comorbid medical or sleep disorders Sleep study to be performed: Home Sleep Apnea Test (HSAT) Special instructions: None-follow laboratory protocol [facility] Staff Note: I have read the above protocol, edited as needed, and agree to the plan. Olivier Chamberlain III, PhD 3:55 PM, 01/05/2023[facility]06-16-2023 NoteHNO ID: [id number] Author: Anastacia Arellano Service: ? Author Type: ? Type: Progress Notes Filed: 01/29/2023 12:49 PM Note Text: January 02, 2023 An order has been received for Home Sleep Apnea Test (HSAT) from Dr. Ernestina Méndez, a B. [facility] Staff. Visit prep complete. Comments :No The sleep study is scheduled for 7/11. Insurance: [place] [facility] [place] [facility] / Product Type: Medicaid / Payer/Plan Subscr Sex Relation Sub. Ins. ID Effective Group Num 1. CARESADIE ME* INDIRA PAIZ 1995 Male Self [id number] [birth year] [address] Anastacia ArellanoThe [facility]06-16-2023 NoteHNO ID: [id number] Author: Ernestina Méndez APRN.CNP Service: ? Author Type: Nurse Practitioner Type: Progress Notes Filed: 01/02/2023 6:47 AM Note Text: Opened to place order. Ernestina Méndez APRN.CNPThe [facility]06-14-2023 History of Present illness Narrative* Ernestina Méndez APRN.CNP - 12/31/2022 2:10 PM EDT 12/31/2022 Patient presents with: Establish Care SUBJECTIVE: This is a 27 year old, accompanied by ezekiel, that is here today for Above Complaints. Reports a hard time sleeping. Reports he drink a lot to help him sleep. Also take OTC sleep aid to help fall asleep. Jairo reports he stop breathing at night when sleeping. Reports he snores loudly when on his back. He admits to often feeling fatigued throughout the day Admits to 4-8 shots of vodka 4-5 days a week. Has thought about cutting down. 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 ALCOHOL USE/ABUSE CAGE ASSESSMENT Two or More Affirmative Responses Suggest a Client is a Problem Drinker. - Have you felt the need to cut down on your drinking? Yes - Do you feel annoyed by people complaining about your drinking? Yes - Do you ever feel guilty about your drinking? Yes - Do you ever drink an eye-english composition instructor in the morning to relieve shakes? No Past medical, surgical, family, social hx, medications, allergies and health maintenance reviewed and updated PAST MEDICAL HISTORY Diagnosis Date Chicken pox ALLERGIES Bactrim [Sulfamethoxazole-Trimethoprim] and Trimethoprim MEDICATIONS Current Outpatient Medications Medication Sig albuterol HFA (PROAIR HFA) 90 mcg/actuation inhaler Inhale 2 Puffs as instructed every 6 hours as needed. No current facility-administered medications for this visit. Medications and allergies reviewed by this provider. SOCIAL HISTORY Social History Tobacco Use Smoking status: Every Day Packs/day: 1.00 Years: 5.00 Pack years: 5.00 Types: Cigarettes Smokeless tobacco: Never Tobacco comments: states smokes just over 1/2 pack per day Vaping Use Vaping Use: Never used Substance Use Topics Alcohol use: No Comment: rare Drug use: No Frequency: 1.0 times per week Comment: marijuana REVIEW OF SYSTEMS GENERAL: No weight loss, malaise or fevers HEENT: Negative for frequent or significant headaches, No changes in hearing or vision, no nose bleeds or other nasal problems NECK: Negative for lumps, goiter, pain and significant neck swelling RESPIRATORY: Negative for cough, hemoptysis, wheezing, COPD, dyspnea. Admits to shortness of breath CARDIOVASCULAR: Negative for chest pain, leg swelling, hypertension, CHF or palpitations GI: No nausea, vomiting, or diarrhea : No history of dysuria, frequency or incontinence MUSCULOSKELETAL: Negative for joint pain or swelling, back pain or muscle pain SKIN: Negative for lesions, rash, and itching PSYCH: See HPI HEMATOLOGY/LYMPHOLOGY: Negative for prolonged bleeding, bruising easily or swollen nodes ENDOCRINE: Negative for cold or heat intolerance, polyuria, polydipsia and goiter NEURO: No history of headaches, syncope, paralysis, seizures or tremors All other reviewed and negative other than HPI. OBJECTIVE: BP 136/84 Pulse 100 Resp 18 Ht 175.2 cm (5' 8.98") Wt 113.4 kg (250 lb) SpO2 97% BMI 36.94 kg/m . Vital signs reviewed by this provider. APPEARANCE Well appearing, alert, in no acute distress, well-hydrated, well nourished. EYES conjunctiva and sclera normal. EARS External ears normal, canals clear NECK Supple, no adenopathy; thyroid symmetric, normal size, no bruits HEART RRR with normal S1 and S2, no murmurs, no gallops, no JVD appreciated LUNG clear to auscultation. No wheezes, rhonchi or rales ABDOMEN bowel sounds normoactive, no bruits, soft, non-tender, non-distended, without organomegaly or palpable masses EXTREMITIES Extremities normal, No deformities, No skin discoloration, and No edema SKIN Skin color, texture, turgor normal, no suspicious rashes or lesions to exposed skin COVID-19 VACCINE(1) Never done PNEUMOCOCCAL(1 - PCV) Never done DTAP,TDAP,TD(6 - Tdap) due on 2004 HEPATITIS C SCREENING Never done HIV SCREENING Never done INFLUENZA(Season Ended) due on 03/20/2023 HEPATITIS B Completed ASSESSMENT/PLAN: 1. Encounter for medical examination to establish care - ICD9: V70.9, ICD10: Z00.00 (primary diagnosis) - Counseled on healthy diet and regular exercise - Discussed need for and benefit of weight loss. BMI 36.94 kg/(m^2) - Smoking cessation encouraged; discussed risks to health and quitting strategies. Patient is not ready to quit - Follow up for annual exam in one year - COMP METABOLIC PANEL - LIPID PANEL BASIC - CBC + DIFF 2. Special screening examination for viral disease - ICD9: V73.99, ICD10: Z11.59 - HEP C AB IA W/CONF SCRN 3. Screening for HIV (human immunodeficiency virus) - ICD9: V73.89, ICD10: Z11.4 - HIV 1 2 COMBO(AG/AB),WITH REFLEX TO DIFFERENTIATION 4. Daytime somnolence - ICD9: 780.54, ICD10: R40.0 - possible related to sleep apnea - HOME SLEEP APNEA TEST (HSAT) 5. Snoring - ICD9: 786.09, ICD10: R06.83 - possible related to sleep apnea - HOME SLEEP APNEA TEST (HSAT) 6. Fatigue, unspecified type - ICD9: 780.79, ICD10: R53.83 - possible related to sleep apnea - TSH BLD 7. Alcohol use disorder - ICD9: V49.89, ICD10: F10.90 - patient aware of 180 if he desires to seek treatment. Also discussed if desires he may go to [facility] for detox, verbalizes understanding Ernestina Méndez APRN.PALM GATHERER Prescription instructions reviewed with patient as applicable. Patient advised if symptoms do not improve or if symptoms worsen sooner, to contact their primary care physician. Potential red flag symptoms discussed with the patient. Reviewed appropriate action plan to take if red flag symptoms occur. Patient agreeable to treatment plan. I spent a total of 40 minutes on the date of the service which included preparing to see the patient, [id number] patient care, completing clinical documentation, obtaining and/or reviewing separately obtained history, performing a medically appropriate examination, counseling and educating the pat ient/family/caregiver, and ordering medications, tests, or procedures. documented in this encounterDunlap [facility] Hospital01-18-2023 Miscellaneous Notes* Telephone Encounter - Michaela Faith LPN - 08/06/2022 4:56 PM EST Spoke with pt and information listed below given. Pt verbalizes understanding. Phone number is correct. Michaela Faith LPN * Telephone Encounter - Betsy Pena - 08/06/2022 7:37 AM EST Unable to reach patient. Mailbox full/Mailbox not set up/ Number incorrect. Restrictions on line can not leave message. Please try again later. Betsy Pena * Telephone Encounter - Viji Warner PA-C - 08/06/2022 7:26 AM EST Let patient know their covid19/influenza test was negative. documented in this encounterDunlap Memorial Hospital01-17-2023 History of Present illness Narrative* SULEIMAN Dee - 08/05/2022 1:50 PM EST This note was created using Orbsterriter. Subjective Indira Paiz is a 26 year old male. HPI 26-year-old male presents for URI symptoms and left ear pain. Patient states he started gettingcongestion, ear pain, cough and sore throat about 3 days ago. No sick contacts. No fevers. States mainly his pain is in the right ear. He denies any vomiting or diarrhea. Has not tested himself for COVID. PAST MEDICAL HISTORY Diagnosis Date Chicken pox PAST SURGICAL HISTORY Procedure Laterality Date LAPAROSCOPIC APPENDECTOMY 04/05/2021 Dr. Escobar ALLERGIES Bactrim [Sulfamethoxazole-Trimethoprim] and Trimethoprim MEDICATIONS albuterol HFA (PROAIR HFA) 90 mcg/actuation inhaler Inhale 2 Puffs as instructed every 6 hours as needed. amoxicillin (AMOXIL) 875 mg tablet Take 1 tablet by mouth twice daily for 7 days. FAMILY HISTORY Problem Relation Age of Onset Psychiatry Mother depression Alcohol/Drug Father Psychiatry Sister bipolar Social History Tobacco Use Smoking status: Every Day Packs/day: 1.00 Years: 5.00 Pack years: 5.00 Types: Cigarettes Smokeless tobacco: Never Tobacco comments: states smokes just over 1/2 pack per day Vaping Use Vaping Use: Never used Substance Use Topics Alcohol use: No Comment: rare Drug use: No Frequency: 1.0 times per week Comment: marijuana ' Review of Systems Constitutional: Negative for chills and fever. HENT: Positive for congestion, ear pain and sore throat. Respiratory: Positive for cough. Negative for shortness of breath. Gastrointestinal: Negative for diarrhea and vomiting. Objective BP 136/90 Pulse 78 Temp 37.1 C (98.7 F) (Tympanic) Resp 18 Wt 113.1 kg (249 lb 6.4 oz) SpO2 98% BMI 35.79 kg/m Physical Exam Vitals and nursing note reviewed. Constitutional: General: He is not in acute distress. Appearance: Normal appearance. He is not toxic-appearing. HENT: Right Ear: Tympanic membrane and ear canal normal. Left Ear: Tympanic membrane is erythematous and bulging. Nose: Nose normal. Mouth/Throat: Mouth: Mucous membranes are moist. Pharynx: No oropharyngeal exudate. Eyes: Conjunctiva/sclera: Conjunctivae normal. Cardiovascular: Rate and Rhythm: Normal rate and regular rhythm. Pulmonary: Effort: Pulmonary effort is normal. Breath sounds: Normal breath sounds. Skin: General: Skin is warm and dry. Neurological: Mental Status: He is alert. Assessment and Plan ASSESSMENT/PLAN: 1. Acute cough - ICD9: 786.2, ICD10: R05.1 (primary diagnosis) - COVID WITH FLUA+B, ROUTINE -Out of window for Tamiflu. 2. URI, acute - ICD9: 465.9, ICD10: J06.9 - Discussed viral etiology and rationale for treatment. - Symptomatic treatment with prn analgesia - Supportive care with fluids and rest -COVID/flu pending. Out of window for Tamiflu 3. Acute otitis media, right - ICD9: 382.9, ICD10: H66.91 - Will begin treatment with Amoxicillin Diagnosis and treatment plan were discussed and questions were answered to the patient's satisfaction. Pt acknowledged understanding of concepts and follow up plan. Specific signs and symptoms that would indicate the need for higher level of care were discussed in detail warranting prompt ER evaluation. SULEIMAN Dee documented in this encounterDunlap [facility] Hospital07-08-2021 Hospital course Narrative * Reggie Gray PALM GATHERER - 01/24/2021 10:35 AM EDT [facility] DISCHARGE SUMMARY Indira Paiz Admitted: 01/24/2021 Discharge Date: 01/24/21 PCP Handoff Recommended Outpatient Testing: Please follow up with a PCP regarding your elevated blood pressure and blood sugars. Results Pending At Discharge: None Clinical Summary Indira Paiz is a 25 y.o. male patient with no significant medical history presents with accidental acetaminophen overdose Accidental Acetaminophen Overdose Acetaminophen level of 5.5, but unclear significance with repeated ingestion over > 24h ALT mildly increased at 52 trended to 45 (possible Etoh consumption in past day) Poison control contacted from ED and recommending N-acetylcysteine NAC infusion ordered in ED - Continued on admission Repeat 4h acetaminophen level <5.0 Repeat INR 1.2 Poison control contacted and given updated laboratory values and agreed no longer needing N-acetylcysteine (stopped) Patient reports feeling well and no longer feels like he needs to be in hospital - will DC Elevated Blood Pressures BP's as high as 160's/100's Patient denies taking any antihypertensives Hasn't seen a PCP in several years Patient informed to follow up w/ a PCP regarding these values Elevated Blood Sugars Patient found to have blood sugars as high as 159 Denies any history of Diabetes or being on medication for sugar control Advised to follow up with a PCP regarding these values Dental caries Will benefit from outpatient resources for extraction Patient given resources for Dentist in [facility] area Obesity BMI 34.87 Advised weight loss Discharge Medications Discharge Medications Medications To Continue Details HYDROcodone-acetaminophen 5-325 mg per tablet Commonly known as: NORCO Take 1 tablet by mouth every 8 (eight) hours as needed for pain . penicillin v potassium 500 MG tablet Commonly known as: VEETID Take 500 mg by mouth 4 (four) times a day . Physician(s) Follow Up: Family Doctor Schedule an appointment as soon as possible for a visit in 1 week(s) Please establish yourself with a family doctor for evaluation of blood pressures and blood sugars. Pamela De Leon MD [phone] [phone] Follow up in 3 day(s) Call to establish with primary care physician Condition at Discharge: Good Disposition: Home On day of discharge, I performed a final bedside evaluation including a physical exam. I reviewed discharge recommendations with the patient in person. Patient instructions, including activity, were given to the patient/family at discharge. Time spent on discharge: > 30 minutes Completed by: Reggie Gray on 01/24/21, 10:35 AM documented in this [id number] Emergency department Note* Marya Lundberg RN - 01/24/2021 9:41 AM EDT Per poison control-patient does not need acetadote. * Noemi Abdullahi II, MD - 01/24/2021 4:42 AM EDT PCP - Physician No Chief Complaint Patient presents with Drug Overdose HPI, MDM, & ED COURSE The patient is a 25-year-old male who comes to the emergency department with concern for an accidental medication overdose. The patient states that he went to another emergency department yesterday complaining of pain in a tooth in the left lower jaw. He says he was prescribed penicillin and hydroco done/acetaminophen. He says the tooth has been hurting and so bad he has taken more of the medications than prescribed, as well as taking some OTC medications. He tells me that he took 7 or 8 tabletsof penicillin, 8-10 hydrocodone, 15 Naprosyn, and 15 Excedrin Extra Strength. This evening, he began to experience palpitations and nausea, so he called the poison center who advised him to come to the ER for evaluation. On examination, the patient appears quite anxious and has a heart rate running at about 130 as I speak with him. He acknowledges that he is very worried about having taken too much medication. He is not vomiting. He does not display any lethargy, confusion, or other altered mentation. I contacted the poison center to seek their advice as the patient reports to me a fairly high quantity of acetaminophen adjusted, though occurring over several hours, so not easy to flat finisher by laboratory levels. They tell me that when he contacted the poison center, he reported taking 10 to 20 tablets of 500 mg acetaminophen. I am not sure if that is in addition to these other medications, or if perhaps he is con fusing the Excedrin and acetaminophen. In any event, the poison center is recommending that we go ahead and start Acetadote. Lab studies available thus far do not show any concerning metabolic acidosis or alkalosis related to the potential aspirin ingestion. His EKG does not show any concerning QRSor QTC interval abnormalities. Some lab studies are still pending, but after my conversation with the poison center, I went ahead and contacted the hospitalist to arrange admission. CRITICAL CARE:Time spent evaluating, stabilizing, reassessing the patient, and discussing care withother treating providers totals 35 minutes, exclusive of any separately billable procedures or discussion with family members, except as necessary to obtain pertinent medical information. COVID-19 Precautions: Due to the current coronavirus pandemic, appropriate precautions were maintained through the entirety of the patient encounter. An N95 mask and gloves were worn at all times when assessing the patient, and additional protective barriers (including a face shield and gown) were worn during any invasive procedures. Physical contact during the examination was kept to the minimumnecessary. IMPRESSION 1. Polysubstance overdose, accidental or unintentional, initial encounter 2. Odontalgia 3. Anxiety about health 4. Tachycardia Review of Systems All systems reviewed and negative except as mentioned in HPI or as noted below: Constitutional: Unintended weight loss NO Eyes: Visual dimming NO ENT: Frequent epistaxis NO Respiratory: Apnea spells NO CV: Syncope NO GI: Abdominal distension NO : Enuresis NO Heme: Unexplained bruising NO Endocrine: Heat intolerance NO Neuro: Tremor NO NURSING NOTE AND VITAL SIGNS REVIEWED Past Medical History History reviewed. No pertinent past medical history. Past Surgical History History reviewed. No pertinent surgical history. Family History History reviewed. No pertinent family history. Social History Social History Tobacco Use Smoking status: Current Every Day Smoker Packs/day: 1.00 Smokeless tobacco: Never Used Substance Use Topics Alcohol use: Yes Comment: a pint a day Drug use: Yes Types: Marijuana Allergies Allergies Allergen Reactions Bactrim [Sulfamethoxazole-Trimethoprim] Medications Indira Paiz Home Medication Instructions Prior to Surgery CATRACHO:[id number] Printed on:01/24/21 044 Medication Information Take last dose on Take the morning of surgery Comment(s) HYDROcodone-acetaminophen (NORCO) 5-325 mg per tablet Take 1 tablet by mouth every 8 (eight) hours as needed for pain . penicillin v potassium (VEETID) 500 MG tablet Take 500 mg by mouth 4 (four) times a day . Physical Exam Initial Vital Signs BP (!) 160/97 Pulse (!) 105 Temp 97.4 F (36.3 C) (Oral) Resp (!) 19 Ht 5' 11" Wt 113.4 kg(250 lb) SpO2 97% BMI 34.87 kg/m Vital Signs During ED Visit (as charted by nursing) Patient Vitals for the past 24 hrs: BP Temp Temp src Pulse Resp SpO2 Height Weight 01/24/21 0417 (!) 160/97 (!) 105 (!) 19 97 % 01/24/21 0327 (!) 157/117 97.4 F (36.3 C) Oral (!) 106 (!) 20 98 % 5' 11" 113.4 kg (250 lb) 01/24/21 0308 5' 1" 112.9 kg (249 lb) Physical Exam Vitals reviewed. Constitutional: General: He is not in acute distress. Appearance: He is well-developed and overweight. He is not toxic-appearing. HENT: Head: Normocephalic and atraumatic. Eyes: Conjunctiva/sclera: Conjunctivae normal. Pupils: Pupils are equal, round, and reactive to light. Neck: Trachea: No tracheal deviation. Cardiovascular: Rate and Rhythm: Regular rhythm. Tachycardia present. Heart sounds: Normal heart sounds. Pulmonary: Effort: Pulmonary effort is normal. No respiratory distress. Breath sounds: Normal breath sounds. No stridor. Abdominal: General: Bowel sounds are normal. Palpations: Abdomen is soft. Musculoskeletal: General: Normal range of motion. Skin: General: Skin is warm and dry. Neurological: Mental Status: He is alert and oriented to person, place, and time. Cranial Nerves: No cranial nerve deficit. Motor: No tremor. Psychiatric: Mood and Affect: Mood is anxious. Behavior: Behavior normal. Thought Content: Thought content normal. Judgment: Judgment normal. Labs Reviewed URINALYSIS - Abnormal; Notable for the following components: Result Value Glucose, Urine 50 (*) Ketones, Urine 20 (*) Blood, Urine Small (*) RBCs, Urine 24 (*) All other components within normal limits Narrative: Microscopic examination is performed on all urinalysis samples and only positive findings are reported. The test for blood on the chemical analytic portion of urinalysis may also be positive due to hemoglobinuria and myoglobinuria and if red blood cells are present they are quantified by microscopic examination. BLOOD GAS, VBG WITH FULL PANEL - Abnormal; Notable for the following components: Base Excess, Ralph 2.1 (*) Carboxyhemoglobin 5.4 (*) Ionized Calcium 4.4 (*) Glucose 160 (*) All other components within normal limits CBC WITH AUTO DIFFERENTIAL - Abnormal; Notable for the following components: WBC 14.49 (*) Neutrophils Abs 11.12 (*) Monocytes Abs 0.96 (*) All other components within normal limits COVID-19, MOLECULAR CBC AND DIFFERENTIAL Narrative: The following orders were created for panel order CBC and Differential. Procedure Abnormality Status --------- ------ CBC Auto Differential[[id number]] Abnormal Final result Please view results for these tests on the individual orders. BASIC METABOLIC PANEL SALICYLATE LEVEL ACETAMINOPHEN LEVEL DRUGS OF ABUSE SCREEN, URINE HEPATIC FUNCTION PANEL Radiographic Imaging (if any) During ED Visit No orders to display Medications Ordered/Given During ED Visit Medications sodium chloride 0.9% (NS) bolus 1,000 mL (1,000 mL Intravenous New Bag 01/24/21 0351) acetylcysteine (ACETADOTE) 15 g in dextrose (D5W) 5% 200 mL IVPB (has no administration in time range) Followed by acetylcysteine (ACETADOTE) 5 g in dextrose (D5W) 5% 500 mL IVPB (has no administration in time range) Followed by acetylcysteine (ACETADOTE) 10 g in dextrose (D5W) 5% 1,000 mL IVPB (has no administration in time range) benzocaine 20 % jelly (has no administration in time range) Procedures (Please note that portions of this note may have been completed with a voice recognition software.) Noemi Abdullahi II, MD 01/24/21 0447 * John Nguyen RN - 01/24/2021 3:31 AM EDT Pt arrives at the ED with complaint of not feeling right because of all the medication he has taken. Pt states he was seen for his tooth abscess and was prescribed penicillin and hydrocodone. Pt states that over the last 24 hours he has taken 6 of each and now feels jittery, and slightly confused. Pt is alert and oreinted x4, pt is breathing easy and unlabored. documented in this [id number] Miscellaneous Notes* Quick Note - Devin Chen MD - 01/24/2021 9:00 AM EDT Patient seen and examined. No new complaints. Discharge home. Needs to establish with PCP in [place] for elevated BP and elevated glucose. Also follow with Dentist after discharge. * ED Update Note - Rocio Schaffer MD - 01/24/2021 5:40 AM EDT Tylenol level came back at 5.5. Discussed the case with Dr. Hubbard and Ema the pharmacist. Discussed deseeding the Acetadote but opted to keep the Acetadote with a repeat Tylenol level in 4 hours.Patient still admitted to [facility]. Rocio Schaffer MD 01/24/21 * ED Procedure Note - Noemi Abdullahi II, MD - 01/24/2021 4:31 AM EDT Associated Order(s): ECG 12 Lead ECG 12 Lead Date/Time: 01/24/2021 3:37 AM Performed by: Noemi Abdullahi II, MD Authorized by: Noemi Abdullahi II, MD Interpreted by ED attending physician Rhythm: sinus tachycardia BPM: 107 Conduction: incomplete RBBB ST Segments: ST segments normal T Flattening: V2 Clinical impression: non-specific ECG and sinus tachycardia documented in this [id number] History and physical note* Robert Valdez DO - 01/24/2021 6:11 AM EDT [facility] HISTORY AND PHYSICAL Patient Name: Indira Paiz : 1995 MR #: [id number] Admit Date: [id number] Physicians: Physician No (Family); No ref. provider found (Referring) Indira Paiz is a 25 y.o. male patient with no significant medical history presents with accidental acetaminophen overdose Accidental Acetaminophen Overdose Acetaminophen level of only 5.5, but unclear significance with repeated ingestion over > 24h ALT mildly increased at 52 Poison control contacted from ED and recommending N-acetylcysteine NAC infusion ordered from ED, will continue Check repeat 4h acetaminophen level for trend Repeat LFTs and check INR Dental caries Will benefit from outpatient resources for extraction Admitted From: Home Medication Reconciliation: Verified Code Status: Full Code Quality Measures DVT Prophylaxis: Lovenox Moise Catheter: None Chief Complaint accidental acetaminophen overdose History of Present Illness Patient is a 25-year-old male who presents to the ED with chief complaint of accidental acetaminophen overdose. Patient reportedly took a combination of approximately 10 [place] and 15 Excedrin extra strength as well as 8 tablets of his penicillin prescription and 15 naproxen. He denies any intention with regard to self-harm. States that worsening of his dental pain prompted him to continue taking extra doses of all of his medications. He expresses frustration that his standard dentist which are covered by his Medicaid product are unable to address his infected wisdomtooth and states that he was given a referral for an oral surgeon, but was told that it would cost him ~$500 [id number] because his insurance would not be accepted. There was additionally a concern that he may have taken additional 500 mg acetaminophen pills based on when the patient had actually contacted poison control himself, but it remains unclear whether he was referring to an ingredientof his Excedrin or whether these were additional. He does endorse some nausea as well as jitteriness. We discussed that the sensation of jitteriness may relate to the caffeine component if one of thethings he took was that Excedrin products including caffeine. He states his nausea is improving with treatment in the ED including IV fluids. Denies fevers, chills, or known sick contacts. Edison hung is pending from the ED. Past Medical History History reviewed. No pertinent past medical history. Past Surgical History History reviewed. No pertinent surgical history. Family History No known family history of liver disease. Social History Social History Tobacco Use Smoking Status Current Every Day Smoker Packs/day: 1.00 Smokeless Tobacco Never Used Social History Substance and Sexual Activity Alcohol Use Yes Comment: a pint a day Social History Substance and Sexual Activity Drug Use Yes Types: Marijuana Allergy Information I have reviewed the patient's allergies. Bactrim [sulfamethoxazole-trimethoprim] Home Medications Home medications were reviewed. Review Of Systems All systems have been reviewed and are negative except as noted in HPI or below Physical Examination BP (!) 160/97 Pulse (!) 105 Temp 97.4 F (36.3 C) (Oral) Resp (!) 19 Ht 5' 11" Wt 113.4 kg(250 lb) SpO2 97% BMI 34.87 kg/m General Appearance: alert, well appearing, and in no acute distress HEENT: Head- normocephalic; Eyes- PERRLA, EOMI; Ears- external auditory canals clear, hearing intact; Nose- no nasal discharge; Throat- oropharynx normal Cardiovascular: regular rate and rhythm; normal S1, S2; no murmurs, rubs, clicks or gallops; no peripheral edema Respiratory: lungs clear to auscultation; without wheezes, rales or rhonchi Abdomen: soft, non-tender, non-distended; positive bowel sounds Neurological: alert, oriented x 3, normal speech; no focal findings or movement disorder noted Musculoskeletal: no significant deformity or tenderness to palpation Skin: normal coloration, texture and turgor; no lesions or eruptions Psych: normal mood and affect Laboratory and Additional Data Reviewed Laboratory 01/24/21 6:27 AM Radiology 01/24/21 6:27 AM Cardiology 01/24/21 6:27 AM Medications 01/24/21 6:27 AM Transcriptions 01/24/21 6:27 AM documented in this [id number] Hospital Discharge instructions * Discharge Instr - AVS First Page* Robert Valdez DO - 01/24/2021 6:07 AM EDT [facility] [address] [place] [id number] Emergency, Walk-In Sliding fee scale. First come, first seen basis. Thursday, Thursday, , Thursday - 8:30 a.m. - 1:30 p.m. Thursday - 9:30 a.m. - 1:30 p.m. [facility] [address] [place] [phone] Fillings, exams, cleanings, extractions (no wisdom teeth), front root canals. Sliding fee scale based on income. Bring 2 current pay stubs, current electric, gas, or phone bill with picture ID. Emergency walk-in time is 7:45 AM daily, Thursday-Thursday. Emergencies are treated on the first come first serve basis. [facility] [address] [place] [phone] Fillings, exams, cleanings, extractions (no wisdom teeth), front root canals. Sliding fee scale basedon income. Bring 2 current pay stubs, current electric, gas, or phone bill with picture ID. By appointment only. Emergency appointments available. [facility] [address] [place] [address] Extractions only. $10 donation per extraction requested. First come, first seen on Thursday. Doors open at 5 p.m. [facility] [address] [address] [address] [place] [address] Dental exams, fillings, extractions, and cleanings. Call onFridays to make an appointment for a later date. [employer] Sliding fee scale. Call for application. [address] [phone] Hours: Tuesdays 11am-7pm and 9am-5pm - And - [address] [place], [place] Hours: Wednesdays 11am-7pm, Fridays 7:30am-4:30pm and Saturdays 8am-2pm General Family Dentistry Dr. Ricky Huber, DDS [address] [place] [address] *Free transportation to and from our office using qualifyor Transportation [employer] [facility] [address] [place], [place] [id number] Limited dental services available to [facility] medical patients. Sliding Fee based on income for the uninsured. Dental minimum fee is $ 20.00. [facility] [address] - [address] Dental Care Services in [facility] General family dentistry Cleanings Restorations Extractions Dental diagnostic X-rays Dental Services provided in [facility] at the [facility] location only. Silvia Garnica [facility] [address], [place] - [phone] Routine dental exams including x-rays, cleanings, fillings and some (limited) extractions. Generally, we will not do wisdom teeth extractions. No bridgework, orthodontics or dentures. Hours: Every . Patients need to call & schedule an appointment Walk-ins will be seen ifspots are available. You must sign in between 5:30 & 6 pm. For appointments, call on Fridays ONLY between 9 and 9:45 am. For information only, leave a message at , ext. 1840 [facility] [address] [facility] - [address] Hours: 7:45 am Thursday - Emergency walk in available. Bring household income, residency and ID. Fees start at $40 with proof, $279 without proof. [place] [phone] Hours: Thursday - Thursday, 8:30 a.m. to 5 p.m. By Appointment Only, No Walk-ins * Attachments The following attachments cannot be sent through Care Everywhere. * Hypertension (Trinidadian) * Hypertension: General Info (Trinidadian) * Prediabetes (Trinidadian) documented in this [id number] History of Present illness Narrative* Amalia Wood)Amber - 10/09/2020 8:40 AM EDT Radiology Service Progress Note PATIENT NAME: Indira Paiz DATE OF SERVICE: October 09, 2020 TIME: 8:47 AM PATIENT IDENTITY VERIFICATION COMPLETED USING TWO (2) IDENTIFIERS: Name and Date of confirmedby patient verbally. FALL SCREENING: Has the patient had 2 falls in the last year or 1 fall with injury or currently using an Ambulatory Assistive Device (Walker, Cane, Wheelchair, Crutches, etc.)? No PATIENT GENDER DATA: Male PATIENT RELEVANT IMPLANT DATA REVIEWED: Yes RADIOLOGY DEPARTMENT: General X-ray: Exam(s) Completed: Chest X-Ray PERIPHERAL IV DATA: Not applicable SIGNED BY: RT Candi October 09, 2020 8:47 AM documented in this encounterDunlap [facility] HospitalDischar summary Author Dr. Graves [facility] August 17, 2022 6:51am Note Date/Time August 17, 2022 6 :29am [facility] Medical Records Department [address] [place] [address] Emergency Department Summary 08/17/22 MR#: [id number] Acct: [id number] Name: INDIRA PAIZ Rep #:[id number] : 1995 26 From: Geoff Palm PCP: Care Physician,No Primary Status :PRE ER Location: ED HPI History of Present Illness Chief Complaint: Laceration Informant: patient Narrative Narrative: InPresents laceration left arm midnight. States he was drinking in his garage he was locked out he threw a rock through his window reached in and when he cut his arm. Tetanus unknown. No anticoagulation medicines. Bleeding controlled. States it was not intentional. Tetanus Immunization: Unknown PFSH PFSH Home Medications NK 04/05/21 [History Last Taken Unknown] Allergy/AdvReac Type Severity Reaction Status Date / Time sulfamethoxazole Allergy Other Verified 04/05/21 14:25 [From Bactrim] trimethoprim [From Bactrim] Allergy Other Verified 04/05/21 14:25 Surgical History History of appendectomy Social History Smoking Status: Current every day smoker tobacco type: cigarettes ROS ROS ED Constitutional Constitutional ED: Denies chills, fever(s) or sweats Eyes Eyes: Denies change in vision ENT ENT ED: Denies dysphagia or sore throat Cardiovascular Cardiovascular: Denies chest pain, leg edema, palpitations or racing heartbeat Respiratory/Chest Respiratory/Chest: Denies cough, dyspnea or dyspnea on exertion Gastrointestinal Gastrointestinal: Denies abdominal pain, diarrhea, nausea or vomiting Genitourinary Genitourinary ED: Denies dysuria, hematuria or urinary frequency Musculoskeletal Musculoskeletal: Denies back pain, extremity pain or neck pain Integumentary Reports wounds; Denies rash Neurologic Neurologic: Denies headache(s), paresthesias or weakness EXAM Physical Exam Const Vital Signs: 08/17/22 06:23 Temperature 96.5 F L Temperature Source Oral Pulse Rate 132 H Respiratory Rate 20 H Blood Pressure 156/99 H Blood Pressure Mean 118 Pulse Ox 99 Oxygen Delivery Method Room Air Positive well nourished and well developed General Appearance ED: well developed and NAD HEENT Reports moist mucous membranes normocephalic and atraumatic Eyes PERRL, EOMs intact bilaterally and conjunctivae normal General Eye ED: Yes normal appearance of both eyes Neck no lymphadenopathy and supple General: Negative for tenderness Chest Wall Chest: Negative for tenderness Resp normal respiratory effort and normal air movement Effort and Inspection: symmetric chest movement; Negative for respiratory distress Cardio regular rate, regular rhythm and no murmurs Rate: tachycardic Peripheral Pulses: pulses 2+ throughout GI normal to inspection, nondistended, normoactive bowel sounds and non-tender Palpation: Negative for guarding or rebound tenderness present Back/Spine no CVA tenderness and no thoracic nor lumbar tenderness Extremity Extremity Narrative: Full range of motion distal digits. See below for wound. General Extremety ED: Negative for edema or tenderness General Extremity: Negative for edema Neuro oriented x3 and no sensory deficits noted Sensorium / Orientation: awake and alert Skin Skin Narrative: Left forearm: Volar aspect: 3 cm superficial laceration proximally additional total of 7 cm with distally linear laceration however subcutaneous exposure on 4cm in the middle section. There is no tendon or muscle exposure. Subcutaneous exposure. There is no active bleeding. Dried blood around the wound. MDM MDM MDM Narrative Medical decision making narrative: Patient laceration forearm accidental from glass. There is no deep cuts. Tetanus is updated. Laceration repaired in the mid section of the wound where therewas subcutaneous exposure total 4 sutures. Wound care discussed with the patient. Discussed superficial lacerations will repair fine by secondary healing. He is given outpatient follow-up for suture removal. All questions were answered. Procedure note: Laceration repair. Verbal consent. Normal sterile conditions. Total of 4 cc 1% lidocaine used for local analgesia of the subcutaneous wound exposure. Wound was copiously flushed with normal saline using wet gauze. A total of 4, 4- 0 nylon simple interrupted sutures used for close approximation ofthe wound. Bacitracin placed dressing placed by myself. Patient tolerated procedure well. Discharge Plan Triage Chief Complaint: Laceration ED Provider: Geoff Graves Dx/Rx/DC Orders Clinical Impression: Laceration of forearm, left, Tetanus toxoid vaccination administered at currentvisit Instructions: Tdap Vaccine, ED Laceration: All Closures Prescriptions: No Action NK Primary Care Provider: Care Physician,No Primary Referrals: Cris Oviedo [Non-Staff] - 10-14 Days suture removal Care Physician,No Primary [Primary Care Provider] - Disposition Disposition: Home, Self Care What to do if you have Problems For any increased pain, shortness of breath, bleeding, nausea or vomiting, chestpain, or any unexpected problems, contact your Primary Care Provider. Call [facility] ([phone]) or report to the closest Emergency Room. Call 911 if necessary. 08/17/22 0651 <Electronically signed by Geoff Palm> Cosigner Signature (if applicable): CC: No Primary Care Physician ~ Signed [facility] Work Phone: Evaluation note* Diagnosis Tylenol overdose, accidental or unintentional, initial encounter- Primary Polysubstance overdose, accidental or unintentional, initial encounter Odontalgia Unspecified disorder of the teeth and supporting structures Anxiety about health Tachycardia Unspecified tachycardia documented [facility] this encounter [facility]* Diagnosis Acute cough- Primary URI, acute Acute upper respiratory infections of unspecified site Acute otitis media, right Unspecified otitis media documented in this encounter [facility] HospitalEvalusaint [facility] noteNo assessment information availableWSt. Francis Hospital Work Phone: Evaluation note* Diagnosis Encounter for medical examination to establish care- Primary Special screening examination for viral disease Special screening examination for unspecified viral disease Screening for HIV (human immunodeficiency virus) Special screening examination for other specified viral diseases Daytime somnolence Hypersomnia, unspecified Snoring Other dyspnea and respiratory abnormality Fatigue, unspecified type Alcohol use disorder documented in this encounter [facility] note* Diagnosis Chest pain, unspecified type- Primary documented in this encounter [facility] Work Phone: Evaluation note* Diagnosis Rotator cuff injury, initial encounter- Primary documented in this encounter [facility] Work Phone: Evaluation note* Diagnosis Sprain of left shoulder, unspecified shoulder sprain type, initial encounter- Primary documented in this encounter [facility] Work Phone: Evaluation note* Diagnosis Sprain of left shoulder, unspecified shoulder sprain type, initial encounter- Primary Acute pain of left shoulder documented in this encounter [facility] Work Phone: Evaluation note* Diagnosis Sprain of left shoulder, unspecified shoulder sprain type, initial encounter- Primary documented in this encounter [facility] Work Phone: Evaluation note* Diagnosis Sprain of left shoulder, unspecified shoulder sprain type, initial encounter documented in this encounter [facility] Work Phone: Evaluation note* Diagnosis Cough with hemoptysis Other hemoptysis documented in this encounter [facility]* Diagnosis Sprain of left shoulder, unspecified shoulder sprain type, initial encounter- Primary Sprain of left shoulder, unspecified shoulder sprain type, initial encounter- Primary Acute pain of left shoulder Sprain of left shoulder, unspecified shoulder sprain type, initial encounter- Primary Sprain of left shoulder, unspecified shoulder sprain type, initial encounter- Primary Labral tear of shoulder, left, initial encounter Pre-op testing Unspecified pre-operative examination documented in this encounter [facility] Work Phone: Evaluation note* Diagnosis Sprain of left shoulder, unspecified shoulder sprain type, initial encounter- Primary Sprain of left shoulder, unspecified shoulder sprain type, initial encounter- Primary Acute pain of left shoulder Sprain of left shoulder, unspecified shoulder sprain type, initial encounter- Primary Sprain of left shoulder, unspecified shoulder sprain type, initial encounter- Primary Labral tear of shoulder, left, initial encounter Pre-op testing Unspecified pre-operative examination Labral tear of shoulder, left, initial encounter documented in this encounter [facility] Work Phone: Evaluation note* Diagnosis Sprain of left shoulder, unspecified shoulder sprain type, initial encounter- Primary Sprain of left shoulder, unspecified shoulder sprain type, initial encounter- Primary Acute pain of left shoulder Sprain of left shoulder, unspecified shoulder sprain type, initial encounter- Primary Sprain of left shoulder, unspecified shoulder sprain type, initial encounter- Primary Labral tear of shoulder, left, initial encounter Pre-op testing Unspecified pre-operative examination Pain, dental- Primary documented in this encounter [facility] Work Phone: Hospital Discharge instructions Additional Instructions Follow-up with 180 for outpatient alcohol abuse counseling. Return if you are feeling worse.[facility] Work Phone: Hospital Discharge instructions* Attachments The following attachments cannot be sent through Care Everywhere. * Chest Pain Discharge Instructions (Trinidadian) documented in this [facility]UnPaul[facility] Work Phone: Hospital Discharge instructions* Attachments The following attachments cannot be sent through Care Everywhere. * Rotator Cuff Injury Discharge Instructions (Trinidadian) * How to Use a Shoulder Sling ED (Trinidadian) documented in this [facility]UnPaul[facility] Work Phone: Hospital Discharge instructions* Attachments The following attachments cannot be sent through Care Everywhere. * Dental pain ED discharge instructions (Trinidadian) documented in this encounterUnPaul[facility] Work Phone: Reason for referral (narrative)* Diagnostic Procedure Only (Routine) - Pending Review Specialty Diagnoses / Procedures Referred By Bisi t Referred To Contact [facility] Diagnoses Daytime somnolence Snoring Procedures HOME SLEEP APNEA TEST (HSAT) SLEEP STD AIRFLOW HRT RATE&O2 SAT EFFORT UNATT Ernestina Médnez APRN.CNP [address] [place] [address] [address] [place] [address] Referral ID Status Reason Start Date Expiration Date Visits Requested Visits Authorized [id number] Pending Review Auto-Generat ed Referral 12/31/2022 12/31/2023 1 1 [facility] for referral (narrative)* Consultation (Routine) - Authorized Specialty Diagnoses / Procedures Referred By Contveronica t Referred To Contact Family Medicine / Primary Care Guy Tomlin DO [address] [place] [address] Department [place] [address] Referral ID Status Reason Start Date Expiration Date Visits Requested Visits Authorized [id number] Authorized Specialty Services Required 10/03/2023 10/02/2024 1 1 [facility] Work Phone: Reason for referral (narrative)* Consultation (Emergency) - Authorized Specialty Diagnoses / Procedures Referred By Contac t Referred To Contact Orthopaedic Surgery / Orthopedic Surgery Fortunato Singleton DO [address] [place] [address] Referral ID Status Reason Start Date Expiration Date Visits Requested Visits Authorized [id number] Authorized Specialty Services Required 10/13/2023 10/12/2024 1 1 * Consultation (Routine) - Authorized Specialty Diagnoses / Procedures Referred By Contac t Referred To Contact Family Medicine / Primary Care Fortunato Singleton DO [address] [place] [address] Referral ID Status Reason Start Date Expiration Date Visits Requested Visits Authorized [id number] Authorized Specialty Services Required 10/13/2023 10/12/2024 1 1 [facility] Work Phone: Reaqxr for referral (narrative)* Consultation (Routine) - Authorized Specialty Diagnoses / Procedures Referred By Contac t Referred To Contact Orthopaedic Surgery / Orthopedic Surgery Diagnoses Sprain of left shoulder, unspecified shoulder sprain type, initial encounter Procedures Follow Up In Orthopaedic Surgery Anat Jacome, OPTHALMIC TECH-PALM GATHERER [address] [facility], [address] [address] Referral ID Status Reason Start Date Expiration Date V isits Requested Visits Authorized [id number] Authorized 10/14/2023 10/13/2024 1 1 T [facility] Work Phone: [id number] for referral (narrative)* Consultation (Routine) - Authorized Specialty Diagnoses / Procedures Referred By Contac t Referred To Contact Orthopaedic Surgery / Orthopedic Surgery Diagnoses Sprain of left shoulder, unspecified shoulder sprain type, initial encounter Procedures Follow Up In Orthopaedic Surgery Anat Jacome, OPTHALMIC TECH-PALM GATHERER [address] [place] [facility], [address] [place] [address] Referral ID Status Reason Start Date Expiration Date V isits Requested Visits Authorized [id number] Authorized 10/28/2023 10/27/2024 1 1 * Consultation (Routine) - Pending Review Specialty Diagnoses / Procedures Referred By Bisi joel Referred To Contact Physical Therapy Diagnoses Acute pain of left shoulder Anat Jacome APRN-PALM GATHERER [address] [place] [facility], [address] [place] [address] Referral ID Status Reason Start Date Expiration Date Visits Requested Visits Authorized [id number] Pending Review Specialty Services Required 10/28/2023 10/27/2024 1 1 [facility] Work Phone: Summary Purpose Family History No Family History Records FoundNo Family History Records FoundNo Family History Records FoundNo Family History Records FoundNo Family History Records FoundNo Family History Records FoundNo Family History Records FoundNo Family History Records FoundNo Family History Records Found Advance Directives No Advanced Directives Records FoundDocuments on File Type Date Recorded 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 Advance Directives and Livin g Will 01/24/2021 4:04 AM Latest Code Status on File Code Status Date Activated Date Inactivated Comments Full Code 01/24/2021 6:10 AM 01/24/2021 1:15 PM Advance Directive Response Recorded Date/ Time Living Will No August 17 6:27am Power of Scientific Advisor No August 17, 2022 6:27am Advance Directive Response Recorded Date/ Time Living Will No September 03 024 4:36pm Power of Scientific Advisor No September 03, 2023 4:36pm Health Concerns Infection Onset Date Last Indicated Resolved Time COVID-19 Rule-Out 08/05/2022 08/05/2022 Infection Onset Date Last Indicated Resolved Time COVID-19 Rule-Out 08/05/2022 08/05/2022 08/06/2022 1:59 AM EST Chief Complaint and Reason for Visit Chief Complaint left arm laceration Chief Complaint ETOH Reason for Referral Specialty Diagnoses / Procedures Referred By Contac t Referred To Contact Radiology Diagnoses Sprain of left shoulder, unspecified shoulder sprain type, initial encounter Procedures MR shoulder left wo IV contrast Anat Jacome, OPTHALMIC TECH-PALM GATHERER [address] [place] [facility], [facility] [address] [place] [address] [address] Referral ID Status Reason Start Date Expiration Date Visits Requested Visits Authorized [id number] Pending Review Perform Procedure 12/09/2023 12/08/2024 1 1 Specialty Diagnoses / Procedures Referred By Contac t Referred To Contact Radiology Diagnoses Labral tear of shoulder, left, initial encounter Procedures XR shoulder left 2+ views Theresa Landry MD [address] [place] [facility] [address] [place] [address] Referral ID Status Reason Start Date Expiration Date Visits Requested Visits Authorized [id number] Authorized Perform Procedure 02/15/2024 02/14/2025 1 1 Additional Source Comments (unrecognized sect ion and content) No Status Records FoundNo Status Records FoundNo Status Records FoundNo Status Records FoundNo Status Records FoundNo Status Records FoundNo Status Records FoundNo Status Records FoundNo Status Records Found INFORMATION SOURCE (unrecogn ized section and content) DATE CREATED AUTHOR 07/01/2018 [facility] DATE CREATED AUTHOR AUTHOR'S ORGANIZ ATION 01/25/2021 [facility] DATE CREATED AUTHOR AUTHOR'S ORGANIZ ATION 08/22/2021 [facility] DATE CREATED AUTHOR AUTHOR'S ORGANIZ ATION 09/15/2023 [facility] DATE CREATED AUTHOR AUTHOR'S ORGANIZ ATION 10/07/2023 [facility] DATE CREATED AUTHOR AUTHOR'S ORGANIZ ATION 01/02/2024 [facility] DATE CREATED AUTHOR AUTHOR'S ORGANIZ ATION 05/26/2024 [facility] DATE CREATED AUTHOR AUTHOR'S ORGANIZ ATION 06/04/2024 [facility] DATE CREATED AUTHOR AUTHOR'S ORGANIZ ATION 03/29/2025 [facility] Reason for Visit (unrecogniz ed section and content) Reason Comments Drug Overdose Status Reason Specialty Diagnoses / Procedures Referre d By Contact Referred To Contact Diagnoses Tylenol overdose, accidental or unintentional, initial encounter Reason Comments Ear Pain Pt reported bilatear l ear pain, decreased hearing, throat pain , x3 days. Reason Comments Results Reason Comments Establish Care Reason Comments HSAT Check In (Adult) Reason Comments Chest Pain Amb to ED with repor t of CP/heaviness the last 3 mornings. He reports that this am was the worst. Also reports that he feels gaggy. Denies any recent cough, cold or illness. EKG done at Reason Comments Fall Pt stated he fell of f of the trampoline yesterday. Pt is c/o left shoulder pain. Pt also injured his left thumb, and lip. Reason Comments Pain Lt shoulder fell off of trampoline 10-12-23 Reason Comments Follow-up Patient states his s houlder is better, but still has some pain and "popping" when he raises his arm straight above his head. He states the pain does at times radiate down his arm toward his elbow. He states it is still painful to lay on his left shoulder to try sleep. Pain Patient states his s houlder is better, but still has some pain and "popping" when he raises his arm straight above his head. He states the pain does at times radiate down his arm toward his elbow. He states it is still painful to lay on his left shoulder to try sleep. Reason Comments Follow-up Patient had cortison e in 10/28/2023, He states that he did get some relief for a little bit. He still has pain and lack of ROM. Pain Patient had cortison e in 10/28/2023, He states that he did get some relief for a little bit. He still has pain and lack of ROM. Specialty Diagnoses / Procedures Referred By Contac t Referred To Contact Orthopaedic Surgery / Orthopedic Surgery Diagnoses Sprain of left shoulder, unspecified shoulder sprain type, initial encounter Procedures Follow Up In Orthopaedic Surgery Anat Jacome, OPTHALMIC TECH-PALM GATHERER [address] [place] [facility], [address] [place] [address] Referral ID Status Reason Start Date Expiration Date V isits Requested Visits Authorized [id number] Authorized 10/28/2023 10/27/2024 1 1 Specialty Diagnoses / Procedures Referred By Contac t Referred To Contact Radiology Diagnoses Sprain of left shoulder, unspecified shoulder sprain type, initial encounter Procedures MR shoulder left wo IV contrast Anat Jacome, OPTHALMIC TECH-PALM GATHERER [address] [place] [facility], [address] [place] [id number] [address] Referral ID Status Reason Start Date Expiration Date Visits Requested Visits Authorized [id number] Pending Review Perform Procedure 12/09/2023 12/08/2024 1 1 Reason Comments Pain Specialty Diagnoses / Procedures Referred By Contac t Referred To Contact Radiology Diagnoses Labral tear of shoulder, left, initial encounter Procedures XR shoulder left 2+ views Theresa Landry MD [address] [place] [facility] [address] [place] [id number] Referral ID Status Reason Start Date Expiration Date Visits Requested Visits Authorized [id number] Authorized Perform Procedure 02/15/2024 02/14/2025 1 1 Reason Comments Dental Pain Pt arrived with c/o left upper tooth pain that started two nights ago. Pt states he has had two caps placed on this tooth previously. Pt currently sees [facility] in [place], [place]. Pt states last repair was early 2023. Pt denies any trouble breathing or fever. Scheduled Active and Recently Administ ered Medications (unrecognized section and content) Medication Order 01/22/2021 01/23/2021 01/24/2021 acetylcysteine (ACETADOTE) 15 g in dextrose (D5W) 5% 200 mL IVPB (COMPLETED) 15 g, Intravenous, at 200 mL/hr, Once, On Dafne 01/24/21 at 0545, For 1 dose, Infuse over 1 hour (Loading Dose). Program in [facility] as 1st phase/bag 603 (New Bag - Prov ider: Chris Longoria RN)0629 (Paused - Provider: Chris Longoria RN - Comment: Pt with N/V/D.)0629 (Stopped - Provider: Marya Lundberg RN) enoxaparin (LOVENOX) syringe 40 mg 40 mg, Subcutaneous, Daily, First dose on Dafne 01/24/21 at 0900, Administer in abdomen unless otherwise directed by prescriber. Notify physician if patient refuses., Indication: VTE Prophylaxis 0900 (Due) sodium chloride (PF) (NS) flush 5 mL(Linked Group 1) 5 mL, Intravenous, Every 8 hours scheduled, First dose on Dafne 01/24/21 at 0755, Saline lock 0755 (Due) sodium chloride 0.9% (NS) bolus 1,000 mL (COMPLETED) 1,000 mL, Intravenous, at 983.6 mL/hr, Once, On Dafne 01/24/21 at 0325, For 1 dose 0351 (New Bag - Prov ider: John Nguyen RN)0452 (Stopped - Provider: John Nguyen RN) PRN Medication Order 01/22/2021 01/23/2021 01/24/2021 benzocaine 20 % jelly Mouth/Throat, 4 times daily PRN, mild pain, Starting on Dafne 01/24/21 at 0438 melatonin Tab 5 mg 5 mg, Oral, Nightly PRN, Sleep, Starting on Dafne 01/24/21 at 0750 nicotine (NICOTROL) 10 mg inhaler 1 Cartridge 1 Cartridge, Oral Inhalation, Every 1 hour prn, smoking cessation, Starting on Dafne 01/24/21 at 0626, Nicotine inhaler: [] May use to supplement nicotine patch therapy. [] Instruct patient to puff on inhaler continuously for 20 minutes. [] May use 1 inhaler every hour not to exceed 16 inhalers in a 24 hour period. Each 10 mg cartridge delivers 4 mg of Nicotine to the patient. ondansetron (ZOFRAN) injection 4 mg(Linked Group 2) 4 mg, Intravenous, Every 6 hours PRN, nausea, vomiting, Starting on Dafne 01/24/21 at 0750, Use oral route first, if tolerated. ondansetron (ZOFRAN-ODT) disintegrating tablet 4 mg(Linked Group 2) 4 mg, Oral, Every 6 hours PRN, nausea, vomiting, Starting on Dafne 01/24/21 at 0750, Use oral route first, if tolerated. Formulation requires tablet remain in sealed package until immediately prior to dose being administered. senna (SENOKOT) tablet 8.6 mg 8.6 mg (1 tablet), Oral, 2 times daily PRN, constipation, Starting on Dafne 01/24/21 at 0750 sodium chloride (PF) (NS) flush 5 mL(Linked Group 1) 5 mL, Intravenous, As needed, line care, Starting on Dafne 01/24/21 at 0750 sodium chloride 0.9% (NS)(Linked Group 1) 0-150 mL/hr, Intravenous, As needed, To flush line after IV infusions when no maintenance IV ordered or a compatibility issue. Infuse 20ml at the same rate as the secondary infusion, Starting on Dafne 01/24/21 at 0750, Run as Primary IV. NOT intended for KVO. Linked Groups Order Group 1: Saline lock IV (CANCELED) Routine, Continuous, Starting on Dafne 01/24/21 at 0755, Until Specified And sodium chloride (PF) (NS) flush 5 mLJump to med 5 mL, Intravenous, As needed, line care, Starting on Dafne 01/24/21 at 0750 And sodium chloride (PF) (NS) flush 5 mLJump to med 5 mL, Intravenous, Every 8 hours scheduled, First dose on Dafne 01/24/21 at 0755
Saline lock
And sodium chloride 0.9% (NS)Jump to med 0-150 mL/hr, Intravenous, As needed, To flush line after IV infusions when no maintenance IV ordered or a compatibility issue. Infuse 20ml at the same rate as the secondary infusion, Starting on Dafne 01/24/21 at 0750
Run as Primary IV. NOT intended for KVO.
Group 2: ondansetron (ZOFRAN-ODT) disintegrating tablet 4 mgJump to med 4 mg, Oral, Every 6 hours PRN, nausea, vomiting, Starting on Dafne 01/24/21 at 0750
Use oral route first, if tolerated. Formulation requires tablet remain in sealed package until immediately prior to dose being administered.
Or ondansetron (ZOFRAN) injection 4 mgJump to med 4 mg, Intravenous, Every 6 hours PRN, nausea, vomiting, Starting on Dafne 01/24/21 at 0750
Use oral route first, if tolerated.
Scheduled Medication Order 10/11/2023 10/12/2023 10/13/2023 ibuprofen tablet 600 mg (COMPLETED) 600 mg, oral, Once, On Thu10/13/23 at 0715, For 1 dose, May administer with food to reduce GI upset., If ordered PRN for pain, nurse is permitted to administer this medication for higher pain scores based on patient preference? Yes 0733 (Given - Provid er: Love Busch RN) Scheduled Medication Order 03/20/2025 03/21/2025 03/22/2025 ketorolac (Toradol) injection 15 mg (COMPLETED) 15 mg, intramuscular, Once, On Thu03/22/25 at 0910, For 1 dose 0914 (Given - Provid er: Ayala Conti RN) Source Comments (unrecognize d section and content) In the event this informatio n is protected by the Federal Confidentiality of Alcohol and Drug Abuse Patient Records regulations: The Federal rules restrict any use of the information to criminally investigate or prosecute any alcohol or drug abuse patient.[facility] Hospital[facility] the event this information is protected by the Federal Confidentiality of Alcohol and Drug Abuse Patient Records regulations: The Federal rules restrict any use of the information to criminally investigate or prosecute any alcohol or drug abuse patient.[facility] HospitalIn the event this information is protected by the Federal Confidentiality of Alcohol and Drug Abuse Patient Records regulations: The Federal rules restrict any use of the information to criminally investigate or prosecute any alcohol or drug abuse patient.[facility] HospitalIn the event this information is protected by the Federal Confidentiality of Alcohol and Drug Abuse Patient Records regulations: The Federal rules restrict any use of the information to criminally investigate or prosecute any alcohol or drug abuse patient.[facility] HospitalIn the event this information is protected by the Federal Confidentiality of Alcohol and Drug Abuse Patient Records regulations: The Federal rules restrict any use of the information to criminally investigate or prosecute any alcohol or drug abuse patient.[facility] HospitalIn the event this information is protected by the Federal Confidentiality of Alcohol and Drug Abuse Patient Records regulations: The Federal rules restrict any use of the information to criminally investigate or prosecute any alcohol or drug abuse patient.[facility] Care Teams (unrecognized sec tion and content) Byproduct Engineer Relationship Specialty Start Date End Date Pamela De Leon MD [address] [place] [address] PCP - General Family Medicine 01/28/21 Byproduct Engineer Relationship Specialty Start Date End Date Pamela De Leon MD [address] [place] [address] PCP - General Family Medicine 01/28/21 Team Status: Active Member Role Status Dates No Primary Care Physician Family Provider Active No Primary Care Physician Primary Care Provider Active Team Status: Inactive Member Role Status Dates No Primary Care Physician Primary Care Provider Active Dr. Geoff Graves DO Emergency Provider Active Byproduct Engineer Relationship Specialty Start Date End Date Pamela De Leon MD [address] [place] [address] PCP - General Family Medicine 01/28/21 Byproduct Engineer Relationship Specialty Start Date End Date Pamela De Leon MD [address] [place], [place] [id number] PCP - General Family Medicine 01/28/21 Byproduct Engineer Relationship Specialty Start Date End Date Pamela De Leon MD [address] [place] [address] PCP - General Family Medicine 01/28/21 Team Status: Inactive Member Role Status Dates No Primary Care Physician Primary Care Provider Active Dr. Dong Whitaker MD Emergency Provider Active Byproduct Engineer Relationship Specialty Start Date End Date Anat Jacome, OPTHALMIC TECH-PALM GATHERER [address] [facility], [facility] [address] [place] [id number] PCP - Guero DANGELO PCP 11/18/23 Byproduct Engineer Relationship Specialty Start Date End Date Anat Jacome OPTHALMIC TECH-PALM GATHERER [address] [facility], [address] [place] [id number] PCP - Guero ACO PCP 11/18/23 Byproduct Engineer Relationship Specialty Start Date End Date Anat Jacome OPTHALMIC TECH-PALM GATHERER [address] [facility], [address] [place] [address] PCP - Fernandamariana O PCP 11/18/23 Byproduct Engineer Relationship Specialty Start Date End Date Anat Jacome APRN-PALM GATHERER [facility] 11/18/23 Anat Jacome APRN-PALM GATHERER PCP - [facility] Medicaid PCP 04/19/24 Generic Provider, No [place] [address] PCP - General Bed Machine Operator 03/22/25 Goals (unrecognized section and content) Goals may be documented in a n alternate sectionGoals may be documented in an alternate section FOR RECORDS PERTAINING TO PATIENTS WHO ARE OR HAVE BEEN ENROLLED IN A CHEMICAL DEPENDENCY/SUBSTANCEABUSE PROGRAM, SOME INFORMATION MAY BE OMITTED. This clinical summary was aggregated from multiple sources. Caution should be exercised in using it in the provision of clinical care. This summary normalizes information from multiple sources, and as a consequence, information in this document may materially change the coding, format and clinical context of patient data. In addition, data may be omitted in some cases. CLINICAL DECISIONS SHOULD BE BASED ON THE PRIMARY CLINICAL RECORDS. [facility]. provides no warranty or guarantee of the accuracy or completeness of information in this document.
[2025-07-17 10:00] VITALS: PULSE 114; RESP 18; O2SAT 99
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
[2025-07-17] MEDS: Nicotine (PBKC) 21 MG Patch TD (11:37)
--- NOTE | 2025-07-17 12:57 | CM.ED ---
Social work 1150: SW called [facility] (ph: ) and inquired about dual diagnosis male beds for patient. Beds available, so referral faxed at [phone] (f: ). 1245: MAYRA received call back from [facility] with accepting information. Ashley Soto NP [address] [place] [address] N2N: Accepting provided to [place]. Doctor updated and patient updated. Current ETA is [id number]. Attempting to outsource. Plan: [facility], pending transport. Berta Fournier, MUSIC ADAPTER, CHIEF REVENUE OFFICER
[2025-07-17 16:30] VITALS: BP 154/89; PULSE 114; RESP 20; TEMP 36.6; O2SAT 99
== END 2025-07-17 16:30 ==
PROVIDERS: Emergency Provider Emergency Medicine; Visit Provider Emergency Medicine
DX: R45.851 Suicidal ideations (principal); F12.90 Cannabis use, unspecified, uncomplicated; F15.90 Other stimulant use, unspecified, uncomplicated; F10.929 Alcohol use, unspecified with intoxication, unspecified; F17.210 Nicotine dependence, cigarettes, uncomplicated
CPT/HCPCS: 80053; 80307; 82077; 85025; 85610; 99284